=== PATIENT | female | born 1930 | race Caucasian/White ===

== ENCOUNTER 2016-04-30 09:32 | Emergency (ER) | payer MEDICARE ==
[~2016-04-30 09:32] MED LIST: ACET-171 PO; ATRINH INH; BETA1TAB19 PO; CARV12.5 PO; CARV6.25 PO; FUR20 PO; LEVO100T6 PO; LOSA25TA21 PO; MULT1CAP33 PO; PARO10TA2 PO; SPIR25TA3 PO; WARF2.5T82 PO; WARF5TAB PO
[2016-04-30 09:38] VITALS: BP 121/81; PULSE 50; RESP 22; O2SAT 96
--- NOTE | 2016-04-30 09:45 | ED.REPORT ---
HPI-Trauma Minor / Fall Date of Service Apr 30, 2016 ED Provider: Ariana Huitron MD 85 year old female with a hx of Afib on Coumadin presents to the ED with L lower rib pain after tripping and falling yesterday in the kitchen. Pt took Tylenol this morning for the pain. Pt denies any dizziness, SOB, lightheadedness or CP preceding the fall. She denies LOC, neck pain and any other injury. She is slightly SOB secondary to the pain. Nursing Notes Stated Complaint: FELL/LEFT ABDOMINAL SIDE PAIN Chief Complaint: General Complaint Nursing Notes Reviewed: Yes Allergies: Coded Allergies: codeine (Verified Adverse Reaction, Intermediate, Nausea,Vomiting, 04/30/16) Scheduled Carvedilol (Coreg) 6.25 Mg Tablet 6.25 MG PO MORNING Carvedilol (Coreg) 12.5 Mg Tablet 12.5 MG PO QPM Furosemide (Furosemide) 20 Mg Tab 20 MG PO DAILY Ipratropium Ramona (Atrovent HFA) 200 Puff/12.9 Gm Inhaler 2 PUFF INH QID Levothyroxine (Levothyroxine) 100 Mcg Tablet 100 MCG PO DAILY Losartan Potassium (Losartan Potassium) 25 Mg Tablet 12.5 MG PO DAILY Paroxetine (Paroxetine) 10 Mg Tablet 10 MG PO HS Spironolactone (Spironolactone) 25 Mg Tablet 25 MG PO DAILY Vit A/Vit C/Vit E/Zinc/Copper (Preservision Areds Tablet) 1 Each Tablet 1 EACH PO DAILY Warfarin Sodium (Coumadin) 5 Mg Tablet 5 MG PO 3X WEEKLY Scheduled PRN Acetaminophen (Acetaminophen) 500 Mg Tablet 500 MG PO Q6H PRN PRN For Fever Warfarin Sodium (Warfarin Sodium) 2.5 Mg Tablet 2.5 MG PO 4X WEEKLY PRN PRN ANTICOAGULANT oxyCODONE-Acetaminophen 5-325 mg (oxyCODONE-Acetaminophen 5-325 mg) 1 Each Tablet 0.5-1 TAB PO Q6H PRN PRN For Pain Miscellaneous Medications Multivitamin (Multivitamins) 1 Each Capsule 1 EACH PO General Time Seen by MD: 09:44 Chief Complaint Fall Hx Obtained From: Patient Arrived By: Walk-in Onset Occurred: Yesterday Symptom Duration: Since onset Location: Chest (ribs) Quality: Painful Severity: Current: Moderate Associated with: Reports: Shortness of breath, Denies: Loss of consciousness Exacerbated by: Deep breath Past Medical History Past Medical History Severe nonischemic cardiomyopathy. Chronic atrial fibrillation. severe systolic CHF, EF of 25-30% as of July 27 2015 arthritis Reports: Cancer, Congestive heart failure, Hypertension Reports: Atrial fibrillation, Depression, Thyroid disease Past Surgical History right hip surgery Reports: Appendectomy, Cataract surgery, Tonsillectomy Reports: Pacemaker insertion Smoking History Former Smoker Social History Alcohol Use: "Social" Drug Use: Denies drug use Other Social History: Ambulatory Status Independent Review of Systems Constitutional: Denies: Fever Respiratory: Reports: Shortness of breath Skin: Denies Bruising, Denies Rash Complete sys rev & neg: except as marked. Cardiovascular: Reports: Chest pain (rib pain) Physical Exam Initial Vital Signs Vital Signs (First) Date Time Temp Pulse Resp B/P Pulse Ox O2 Delivery O2 Flow Rate FiO2 04/30/16 09:38 36.1 50 22 121/81 96 Room Air Initial VS: Reviewed Head / Eyes: Atraumatic, Normocephalic, PERRL ENT: Conjunctiva normal, No scleral icterus Abdomen / GI: Soft, Non-tender, No guarding, No rebound, No distention Skin: Warm, Dry, No cyanosis Neurologic: Alert, Oriented, Nonfocal Psychiatric: Mood/affect normal, Behavior normal, Normal thought content General/Constitutional: Awake, Alert, Cooperative Distress / Hydration: Positive: Distress moderate Neck: Atraumatic, Supple, Full range of motion Perioral cyanosis Respiratory/Chest: Tender along left lower ribs, just under the breast, without contusion or bruising. Crackles entire L lung field. R lung field normal. Tachypneic. Speaking full sentences. Cardiovascular: Peripheral circulation NL Heart Rate / Rhythm: Positive: Irreg irregular rhythm Heart Sounds / Murmur: Positive: Murmur present... (IV/) No edema Upper Extremity / MS: Neurologic intact, Vascular intact Tips of fingers dusky Interpretation & Diagnostics X-Ray Chest Interpretation Chest Xray Interpretation: Ribs x-ray: probable small fractures on L No hemopneumothorax Interpretation / Wet Read by: Wet read ED physician Chest Xray Interpretation: Ribs x-ray: IMPRESSION: Nondisplaced left lateral seventh rib fracture. Dictated by: Brittany Vidales M.D. on 04/30/2016 at 11:03 Interpretation / Wet Read by: Interpret - Radiologist Re-Eval/Medical Decision Re-Evaluation/Progress : Time of Eval: 10:57 Re-Evaluation/Progress Note: Pain improved. Breathing rate is normal. Discussed plan for discharge and follow up. All questions addressed. Counseled Regarding: Diagnosis, Need for follow-up, When/why to return to ED Discharge & Departure Impression: Primary Impression: Rib fracture Encounter type: initial encounter Rib fracture type: multiple ribs Fracture type: closed Laterality: left Qualified Code: S22.42XA - Multiple fractures of ribs, left side, initial encounter for closed fracture Ruled Out: Hemopneumothorax Disposition: Home Discharge Condition All VS Reviewed: Yes Condition: Improved Patient Instructions: Rib Fracture (ED) Additional Instructions: You have cracked 3 ribs with your fall. They are not completely broken and are not causing lung or bleeding problems. They are still going to hurt, alot:( You can use 1-2 Tylenol OR 1/2 to 1 Percocet for severe pain. Expect to have significant pain for 2-3 days, moderate pain for 1-2 weeks and you will still feel that you hurt yourself for up to 6 weeks (that is standard with any type of rib healing). You can also apply ice to the area to help with pain and swelling. Make sure that you are taking deep breaths throughout the day to make sure that you are preventing pneumonia. Please be careful to prevent falls. You got kyle today! If you are getting worse you can follow up with your primary care doctor. For high fever, or cough, return to the ER. Referrals: Julien Dunn MD (PCP) Scribe Attestation Portions of this note were transcribed by Mariela Mandujano. I, (Dr. Huitron) personally performed the history, physical exam and medical decision-making; I reviewed and confirmed the accuracy of the information in the transcribed note. Signed by: Mariela Mandujano. 04/30/2016, 1100 copies to: Julien Dunn MD, Shawna L MD Apr 30, 2016 09:45 Mariela Mandujano Apr 30, 2016 09:59
[2016-04-30] MEDS ORDERED: oxyCODONE-Acetamin 5-325 mg Tablet PO ONE (09:55)
[2016-04-30 10:07] VITALS: PULSE 70; RESP 32; O2SAT 95
--- NOTE | 2016-04-30 11:04 | DRSVH ---
PROCEDURE: X-RAY LEFT RIBS INCLUDEING PA CHEST, MINUMUM THREE VIEWS ([id number]) INDICATIONS: fall TECHNIQUE: 3 views of the left ribs were acquired, along with a single view chest. COMPARISON: [facility], CR, XR CHEST 1VW (PORTABLE), 01/04/2016, 8:51. FINDINGS: Surgical changes and devices: Pacemaker. Bones and chest wall: There is a nondisplaced lateral left seventh rib fracture. Lungs and pleura: Lungs demonstrate chronic interstitial changes. No pneumothorax. Mediastinum: Mediastinal contours appear normal. Heart size is normal. IMPRESSION: Nondisplaced left lateral seventh rib fracture. Dictated by: Brittany Vidales M.D. on 04/30/2016 at 11:03 Approved by: Brittany Vidales M.D. on 04/30/2016 at 11:03
[2016-04-30] MEDS ORDERED: OXYC1TAB24 PO (11:07)
[2016-04-30 11:41] VITALS: BP 100/55; PULSE 65; RESP 28; O2SAT 93
== END 2016-04-30 11:43 | disposition home or self-care (01) ==
LOC: SED 09:32
DX: S22.42XA Multiple fractures of ribs, left side, initial encounter for closed fracture (principal); W01.0XXA Fall on same level from slipping, tripping and stumbling without subsequent striking against object, initial encounter; Y93.01 Activity, walking, marching and hiking; Y92.010 Kitchen of single-family (private) house as the place of occurrence of the external cause; Y99.8 Other external cause status; Z79.01 Long term (current) use of anticoagulants; I50.9 Heart failure, unspecified; I10 Essential (primary) hypertension; E07.9 Disorder of thyroid, unspecified; Z87.891 Personal history of nicotine dependence

== ENCOUNTER 2016-05-01 22:19 | Inpatient (IN) | payer MEDICARE ==
[~2016-05-01] VITALS: Ht 167.6 cm; Wt 60.5 kg
[~2016-05-01 22:19] MED LIST changes: +OXYC1TAB24 PO
[2016-05-01 22:27] VITALS: BP 97/54; PULSE 70; RESP 32; O2SAT 96
--- NOTE | 2016-05-01 22:32 | ED.REPORT ---
HPI-Dyspnea / Wheezing Date of Service May 01, 2016 ED Provider: Dr. Hagen 85-year-old female with history of interstitial lung disease, ischemic cardiomyopathy and COPD presents in moderate respiratory distress. She states that she has felt short of breath for the past 24-36 hours. Evidently she fell and broke her ribs I believe yesterday. Since then she is having increasing work of breathing. Nursing Notes Stated Complaint: SHORT OF BREATH Chief Complaint: Respiratory Complaints Nursing Notes Reviewed: Yes Allergies: Coded Allergies: codeine (Verified Adverse Reaction, Intermediate, Nausea,Vomiting, 05/01/16) Scheduled Carvedilol (Coreg) 6.25 Mg Tablet 6.25 MG PO MORNING Carvedilol (Coreg) 12.5 Mg Tablet 12.5 MG PO QPM Furosemide (Furosemide) 20 Mg Tab 20 MG PO DAILY Ipratropium Jordan (Atrovent HFA) 200 Puff/12.9 Gm Inhaler 2 PUFF INH QID Levothyroxine (Levothyroxine) 100 Mcg Tablet 100 MCG PO DAILY Losartan Potassium (Losartan Potassium) 25 Mg Tablet 12.5 MG PO DAILY Paroxetine (Paroxetine) 10 Mg Tablet 10 MG PO HS Spironolactone (Spironolactone) 25 Mg Tablet 25 MG PO DAILY Vit A/Vit C/Vit E/Zinc/Copper (Preservision Areds Tablet) 1 Each Tablet 1 EACH PO DAILY Warfarin Sodium (Coumadin) 5 Mg Tablet 5 MG PO 3X WEEKLY Scheduled PRN Acetaminophen (Acetaminophen) 500 Mg Tablet 500 MG PO Q6H PRN PRN For Fever Warfarin Sodium (Warfarin Sodium) 2.5 Mg Tablet 2.5 MG PO 4X WEEKLY PRN PRN ANTICOAGULANT oxyCODONE-Acetaminophen 5-325 mg (oxyCODONE-Acetaminophen 5-325 mg) 1 Each Tablet 0.5-1 TAB PO Q6H PRN PRN For Pain Miscellaneous Medications Multivitamin (Multivitamins) 1 Each Capsule 1 EACH PO General Time Seen by MD: 22:31 Chief Complaint Shortness of breath Hx Obtained From: Patient, EMS Arrived By: Ambulance Sudden in Onset?: No Onset Occurred: Onset unknown Symptom Duration: Since onset Severity: Current: No pain currently Severity: Maximum: No pain Recent Healthcare: No recent hospitalization, Recent doctor visit Similar Sx Previous: No Past Medical History Past Medical History Severe nonischemic cardiomyopathy. Chronic atrial fibrillation. severe systolic CHF, EF of 25-30% as of July 27 2015 arthritis Reports: Cancer, Congestive heart failure, Hypertension Reports: Atrial fibrillation, Depression, Thyroid disease Past Surgical History rib fractures 04/30/2016 right hip surgery Reports: Appendectomy, Cataract surgery, Tonsillectomy Reports: Pacemaker insertion Smoking History Former Smoker Social History Alcohol Use: "Social" Drug Use: Denies drug use Other Social History: Ambulatory Status Independent Review of Systems Constitutional: Denies: Fever Respiratory: Reports: Shortness of breath Cardiovascular: Denies: Chest pain Musculoskeletal: Denies: Back pain Complete sys rev & neg: except as marked. GI: Denies: Abdominal pain Physical Exam Initial Vital Signs Vital Signs (First) Date Time Temp Pulse Resp B/P Pulse Ox O2 Delivery O2 Flow Rate FiO2 05/01/16 22:27 36.4 70 32 97/54 96 Nasal Cannula 4 05/01/16 23:23 98 Initial VS: Reviewed Head / Eyes: Atraumatic, Normocephalic, PERRL ENT: Mucous membranes moist, Conjunctiva normal, No scleral icterus Abdomen / GI: Soft, Non-tender, No guarding, No rebound, No distention Skin: Warm, Dry, No cyanosis Neurologic: Alert, Oriented, Nonfocal Psychiatric: Mood/affect normal, Behavior normal, Normal thought content General/Constitutional: Awake, Alert Distress / Hydration: Positive: Distress moderate Neck: Atraumatic Neck Vascular: Positive: JVD mild Respiratory / Chest: No chest tenderness Moderate pursed lip breathing Cardiovascular: Heart rate NL, Regular rhythm, Heart sounds NL, Peripheral circulation NL Lower Extremity / Pelvis / MS: No edema Upper Extremity / MS: No edema Interpretation & Diagnostics Lab Results Interpretation Result Diagram: 05/01/16222905/01/162229 Test 05/01/16 22:30 05/01/16 23:05 05/02/16 00:27 White Blood Count 8.5th/mm3 (3.8-10.1) Red Blood Count 4.28mil/mm3 (3.90-5.20) Hemoglobin 14.1g/dL (12.0-15.6) Hematocrit 42.7% (35.0-46.0) Mean Corpuscular Volume 99.8fL (81-100) Mean Corpuscular Hemoglobin 32.9pg (27.0-35.0) Mean Corpuscular Hemoglobin Concent 33.0% (32.0-37.0) Red Cell Distribution Width 15.9% (12.3-15.4) Platelet Count 125bil/L (150-400) Neutrophils (%) (Auto) 69.8% (40-74) Lymphocytes (%) (Auto) 20.4% (14-46) Monocytes (%) (Auto) 8.0% (4-12) Eosinophils (%) (Auto) 0.8% (0-5) Basophils (%) (Auto) 0.5% (0-3) Hold Purple Top Tube Received (Received) Prothrombin Time 20.5sec (8.1-12.5) Prothromb Time International Ratio 1.89ratio Hold Blue Top Tube Received (Received) Sodium Level 135mEq/L (134-144) Potassium Level 4.8mEq/L (3.5-5.2) Chloride Level 99mEq/L (97-108) Carbon Dioxide Level 21mmol/L (18-29) Blood Urea Nitrogen 32mg/dL (8-27) Creatinine 0.97mg/dL (0.57-1.00) Estimat Glomerular Filtration Rate 78mL/min (>59) Glucose Level 151mg/dL (60-99) Calcium Level 8.9mg/dL (8.5-10.1) Total Bilirubin 1.2mg/dL (0.0-1.2) Aspartate Amino Transf (AST/SGOT) 30U/L (0-50) Alanine Aminotransferase (ALT/SGPT) 15U/L (0-32) Alkaline Phosphatase 86U/L (25-165) Troponin T 0.010ug/L (0.0-0.011) Pro-B-Type Natriuretic Peptide 44186az/mL (0-738) Total Protein 7.2g/dL (6.4-8.4) Albumin 3.7g/dL (3.4-5.0) Hold Red Top Tube Received (Received) Hold Leonard Top Tube Received (Received) Urine Color Yellow (YELLOW) Urine Appearance Clear (CLEAR,HAZY) Urine pH 5.5 (5.0-8.0) Urine Specific [place] 1.010 (1.003-1.035) Urine Protein Negativemg/dL (NEG,TRACE) Urine Glucose (UA) Negativemg/dL (NEGATIVE) Urine Ketones Negativemg/dL (NEGATIVE) Urine Occult Blood Negative (NEGATIVE) Urine Nitrite Negative (NEGATIVE) Urine Bilirubin Negative (NEGATIVE) Urine Urobilinogen Normalmg/dL (NORMAL) Urine Leukocyte Esterase Small (NEGATIVE) Urine RBC 0-2/hpf (0-2) Urine WBC 6-10/hpf (0-5) Urine Epithelial Cells Moderate/hpf (NONE-MOD) Urine Crystals None seen (NONE SEEN) Urine Bacteria Moderate/hpf (NONE-FEW) Urine Hyaline Casts None/lpf (NONE) Urine Granular Casts None seen (NONE SEEN) Urine Waxy Casts None seen (NONE SEEN) Urine Red Blood Cell Casts None seen (NONE SEEN) Urine White Blood Cell Casts None seen (NONE SEEN) Urine Mucus Present (None Seen) Urine Trichomonas None seen (NONE SEEN) Urine Yeast None (NONE SEEN) Urinalysis Comment None Urine Culture Reflexed Indicated ECG Interpretation ECG Interpretation: Afib/flutter and ventricular-paced rhythm. Rate 70. Time: 23:05 Interpreted by: ED physician X-Ray Chest Interpretation Chest Xray Interpretation: Chronic interstitial fibrosis without infiltrate. Interpretation / Wet Read by: Wet read ED physician Re-Eval/Medical Decision Med Decision/Clinical Course Patient presented moderate distress. She is treated with DuoNeb's, IV steroids and Lasix. The above treatment seemed to help significantly. Her work of breathing improved significantly. Her respiratory rate went down from 27 to roughly 16. She is moving much more air. Chest x-ray shows chronic interstitial appearing pattern with maybe a little more vascular prominence than from yesterday. No pneumothorax or focal infiltrates. Taking into account her age and comorbidities we will admit her to the hospital for frequent breathing treatments IV antibiotics and diuresis. Laboratory work shows a markedly elevated BNP. First troponin is negative. Re-Evaluation/Progress : Time of Eval: 12:45 Patient Status: Condition improved Re-Evaluation/Progress Note: Pt's respiratory rate has decreased. Consultation : Referral / Consult Name: Ioana Teixeira MD Consulted With: Hospitalist Call Returned at: 00:28 Electrical Contacts Adjuster: Will see patient, Agrees with plan, Accepts admit Counseled Regarding: Diagnosis, Lab results, Need for follow-up, When/why to return to ED Discharge & Departure Shift Change Sign-Out Response to Therapy: Improved Impression: Primary Impression: COPD exacerbation Additional Impressions: Respiratory distress CHF exacerbation Disposition: ADMITTED TO HOSPITAL Discharge Condition All VS Reviewed: Yes Condition: Improved Referrals: Julien Dunn MD (PCP) Scribart Attestation Portions of this note were transcribed by Cleopatra Javier. I, Dr. Hagen personally performed the history, physical exam and medical decision-making; I reviewed and confirmed the accuracy of the information in the transcribed note. Signed by : Gilles Quiroz, 05/01/2016 and 0035. copies to: Julien Dunn MD, Todd P DO May 01, 2016 22:32 CLEOPATRA JAVIER May 01, 2016 23:10
[2016-05-01] MEDS ORDERED: Albuterol 2.5 mg/3 mL Inhalation Solution NEB ONE (22:35)
[2016-05-01] MEDS ORDERED: Albuterol-Ipratropium 3 mL Inhalation Solution NEB ONE ×2 (22:35→23:50)
[2016-05-01 22:47] LABS: BASOPHILS % (AUTO) 0.5 % (0-3); EOSINOPHILS % (AUTO) 0.8 % (0-5); Mean Corpuscular Hemoglobin 32.9 pg (27.0-35.0); Mean Corpuscular Volume 99.8 fL (81-100); NEUTROPHILS % (AUTO) 69.8 % (40-74); Platelet Count 125 bil/L (150-400)
[2016-05-01 22:54] LABS: INR 1.89 ratio
[2016-05-01 23:15] LABS: TROPONIN T 0.01 ug/L (0.0-0.011)
[2016-05-01 23:23] VITALS: PULSE 70; RESP 28; O2SAT 98
[2016-05-01] MEDS ORDERED: Furosemide 10 mg/mL 4 mL Inj IVPUSH ONE (23:30)
[2016-05-01] MEDS ORDERED: MethylprednisoLONE Sodium Succinate 62.5 mg/mL 2 mL Inj IVPUSH ONE (23:30)
[2016-05-01 23:35] VITALS: BP 114/57; PULSE 70
[2016-05-01] MEDS ORDERED: Piperacillin-Tazo 3.375 Gm Inj 3.375 GM in Dextrose 5% Minibag Plus 50 ML IV ONE (23:35)
[2016-05-01 23:50] VITALS: BP 122/43; PULSE 70
[2016-05-02] VITALS (10 sets, daily range): BP systolic 111–128; BP diastolic 64–78; PULSE 67–72; RESP 18–24; O2SAT 92–97
[2016-05-02 01:09] LABS: APPEARANCE,URINE CLEAR (CLEAR,HAZY); COLOR,URINE YELLOW (YELLOW); OCCULT BLOOD,URINE NEGATIVE (NEGATIVE); PH,URINE 5.5 (5.0-8.0); UROBILINOGEN,URINE NORMAL (NORMAL)
[2016-05-02] MEDS ORDERED: Senna-Docusate 8.6-50 mg Tablet PO PRN (01:20)
[2016-05-02] MEDS ORDERED: Alum-Mag Hydrox-Simeth 30 mL Suspension PO PRN (01:20)
[2016-05-02] MEDS ORDERED: Ondansetron 2 mg/mL 2 mL Inj IVPUSH PRN (01:20)
[2016-05-02] MEDS ORDERED: Polyethylene Glycol (PEG) 17 Gm Powder PO PRN (01:20)
--- NOTE | 2016-05-02 01:39 | PCM.HPMED ---
Subjective Date of Service May 02, 2016 Primary Provider: Admitting Physician: Ioana Teixeira MD Primary Care Physician: Julien Dunn MD Attending Physician: Ioana Teixeira MD Admit Status: From the Emergency Department Chief Complaint: shortness of breath History of Present Illness: Mrs. Odell is an 85-year-old female with history of interstitial lung disease, ischemic cardiomyopathy and COPD who presented in moderate respiratory distress. She states that she has felt short of breath for the past 24-36 hours. She stated that she fell and broke her ribs one to two days ago. It was a "trip and fall" over an open cupboard door in her kitchen. Denies feeling dizzy or weak prior to the fall. Since then she has been having increasing work of breathing. She uses oxygen at night but does not know how much. Her was present in the ED to answer questions, but by the time she was admitted, her had left. Patient is a poor historian and unable to answer many of my questions. In the ED, vitals were 36.4; 70; 32; 97/54 and she used 4L by NC for saturation of 96%. Labs showed no leukocytosis, lactic acid of 2.1, ProBNP of 12,408; INR subtherapeutic at 1.89; UA had moderate epithelial cells. She was given DuoNEB inhaler x2, Zosyn x1, Solu-Medrol 125 mg by IV, furosemide 40mg by IV, albuterol neb x1. Respiratory rate and blood pressure normalized. . Review of Systems: As per HPI, otherwise negative. Allergies Coded Allergies: codeine (Verified Adverse Reaction, Intermediate, Nausea,Vomiting, 05/01/16) Home Medications from ED records, but not confirmed. DAY TEAM TO VERIFY MEDICATIONS. I have 2 different doses for carvedilol, paroxetine and levothyroxine. carvedilol 6.25 po am carvedilol 12.5 po QPM furosemide 20mg daily Spironolactone 25mg daily losartan 12.5mg daily Atrovent HFA levothyroxine 100mcg daily multivitamin oxycodone-apap 5-325, 1/2 to 1 PO Q6H PRN paroxetine 10mg PO HS Vitamin A/C/E/zinc/copper (Preservision Areds tab) 1 tab daily warfarin 5mg 3x weekly; 2.5 mg PO 4x weekly PMH Severe nonischemic cardiomyopathy. Chronic atrial fibrillation. severe systolic CHF, EF of 25-30% as of July 27 2015 arthritis Reports: Cancer, Congestive heart failure, Hypertension Reports: Atrial fibrillation, Depression, Thyroid disease Surgical History rib fractures 04/30/2016 right hip surgery Reports: Appendectomy, Cataract surgery, Tonsillectomy Reports: Pacemaker insertion Family History Father at age 51 but patient was not able to tell me why Mother at age 87 but patient was not able to tell me how Social History Hx Alcohol Use: Yes (OCCASIONAL) Hx Substance Use: No Hx Tobacco Use: Yes (quit 30 years ago) Smoking Status: Former Smoker Living Arrangement: with Family (with ) Exam Vital Signs Vital Sign - Last Date Time Temp Pulse Resp B/P Pulse Ox O2 Delivery O2 Flow Rate FiO2 05/02/16 00:10 70 19 97 OxyMask 4 05/01/16 23:50 122/43 05/01/16 23:23 98 05/01/16 22:27 36.4 Intake and Output 05/01/16 05/01/16 05/02/16 Cumulative From/Thru 15:00 23:00 07:00 05/01/16 22:27 - 05/02/16 00:58 Output Total 300 ml 300 ml Balance -300 ml -300 ml Output Urine Total 300 ml 300 ml Exam General/Constitutional: Awake, Alert, cachectic and frail Neck: Atraumatic Respiratory / Chest: No chest tenderness, mild to moderate coarse breath sounds B/L lung bases Cardiovascular: Heart rate NL, Regular rhythm, Heart sounds NL but distant Head / Eyes: Atraumatic, Normocephalic, PERRL ENT: Dry mucus membranes (s/p furosemide in the ED) Abdomen / GI: Soft, Non-tender, No guarding, No rebound, No distention Extremities: no edema in LE Skin: Warm, Dry, No cyanosis Psychiatric: Mood/affect normal . Lab and Diagnostics Labs no leukocytosis, lactic acid of 2.1, ProBNP of 12,408; INR subtherapeutic at 1.89; UA had moderate epithelial cells Result Diagram: 05/01/16222905/01/162229 Microbiology UA pending X-Rays, CTs and MRIs 05/02/16 Chest Xray Interpretation: Chronic interstitial fibrosis without infiltrate. Interpretation / Wet Read by: Wet read ED physician 05/01/16 chest x-ray showed: IMPRESSION: Nondisplaced left lateral seventh rib fracture. Dictated by: Brittany Vidales M.D. on 04/30/2016 at 11:03 12-lead ECG ECG Interpretation: Afib/flutter and ventricular-paced rhythm. Rate 70. Time: 23:05 Interpreted by: ED physician Assessment & Plan Mrs. Odell is an 85-year-old female with history of interstitial lung disease, ischemic cardiomyopathy and COPD who presented by EMS to [facility] ED in moderate respiratory distress. NOTE: Day team to verify medications. I have found different doses for several of her medications. PLEASE DO MEDICINE RECONCILIATION. Several of her medications have not been continued until verified. 1. CHF exacerbation, present on admission, chronic - Likely secondary to her fall with left 7th non-displaced fracture causing shallow respiration because of the pain - BNP: 12,408 - CXR: interstitial fibrosis without congestion - Was given IV lasix 40 mg in the ED. Patient now looks dry and I did not appreciate any crackles in her lung bases nor does she have LE edema. Continue home PO dose of lasix daily. Day team to verify dose and continue. - ECHO (02/21/2016):Echocardiogram report from 02/21/16 (two months ago): LVEF 25 +/- 5%. Global hypokinesis of LV. Paced rhythm. Severe tricuspid regurgitation. No significant change from echo of 01/14/16. - Continue home dose of spironolactone, losartan, carvedilol. Day team to verify dose and continue. - No IV fluids ordered - troponin negative x1 - Telemetry 2. COPD exacerbation, present on admission, Chronic - Likely secondary to her fall with left 7th non-displaced fracture causing shallow respiration because of the pain - Patient on unknown amount of oxygen at home during the night. Now using 5L by oxymask. - DuoNebs, albuterol nebs as necessary - Zosyn given in the ED. Will continue 3.375g Q12 hrs -125mg solu-medrol given in the ED. 40mg PO daily ordered - Oxygen for saturation 88%-92% 3. Elevated lactic acid, present on admission, acute - 2.1 x 2. Will continue to trend - No IV fluids because of CHF exacerbation 4. Non-displaced fracture of left lateral seventh rib, present on admission, acute - Pain medication ordered 5. Atrial fibrillation, present on admission, chronic - on Coumadin at home which was subtherapeutic. Continue Coumadin per pharmacy - Also on carvedilol but have conflicting doses. Day team to verify dose and continue. 6. Hypothyroidism, present on admission, chronic - Will continue Synthroid but day team to verify dose (since I have 2 doses listed) and continue 7. Depression, present on admission, chronic - She is on Paroxetine. Day team to verify dose (I have both 10mg and 20mg) and continue Bowel regime as per protocol Antiemetics and analgesics prn Code status: Full Status: Pt will be admitted as inpatient due to complexity of medical conditions that will require more than 2 days of inpatient stay. Resuscitation Status: CPR: Attempt Resuscitation, intubation. NO cardioversion/ defibrillation. Confirmed with patient. GI Prophylaxis: Proton Pump Inhibitor VTE Prophylaxis: Theraputic Anticoag with Warfarin Resuscitation Status: Limited Interventions (compressions and intubation OKAY. Does not want electric shock) Limited Interventions: Compressions, Intubation w Mech Vent, BiPAP, Medications and IV Fluid (No cardioversion/defibrillation) Attending Statement Pt seen and examined by myself and agree with above plan. copies to: Julien Dunn MD, Janice M DO May 02, 2016 01:39 Ioana Teixeira MD May 02, 2016 18:48
--- NOTE | 2016-05-02 01:45 | NUR ---
ADMIT Pt brought onto floor via gurney at 0145. Report received from Alanna Sena RN from ED. Pt oriented to unit, room, and call light. Pt belongings stored in closet or bedside and waiver signed. Admission assessments and physical assessments complete, VSS. Med rec not finished, pt por historian, instructed to ask to bring med list from home with advanced directive. Will report to day shift to follow up.
[2016-05-02] MEDS ORDERED: Albuterol 2.5 mg/3 mL Inhalation Solution NEB PRN (02:45)
[2016-05-02 06:40] LABS: INR 1.78 ratio
--- NOTE | 2016-05-02 07:49 | DRSVH ---
PROCEDURE: X-RAY CHEST ONE VIEW, PORTABLE ([id number]) INDICATIONS: short of breath TECHNIQUE: One view of the chest was acquired. COMPARISON: [facility], CR, XR [facility] PA CXR MIN 3VW LT, 04/30/2016, 10:13. [facility], CT, CT CHEST WO CON, 01/05/2016, 9:15. [facility], CR, XR CHEST 1VW (PORTAB LE), 01/04/2016, 8:51. FINDINGS: Surgical changes and devices: Cardiac pacer Lungs and pleura: No pleural effusions or pneumothorax. Lungs are clear. Chronic diffuse/interstit ial disease with unchanged appearance. Previously described left lung opacities are less conspicuous on the current examination Mediastinum: Mediastinal contours appear normal. Heart size is normal. Bones and chest wall: Minimally displaced left sixth rib fracture. IMPRESSION: Minimally displaced left sixth rib fracture No acute cardiopulmonary disease Diffuse chronic/interstitial changes. Dictated by: Raul Gardiner M.D. on 05/02/2016 at 7:47 Approved by: Raul Gardiner M.D. on 05/02/2016 at 7:47
[2016-05-02] MEDS ORDERED: predniSONE 20 mg Tablet PO SCH (08:30)
[2016-05-02] MEDS: oxyCODONE-Acetamin 5-325 mg Tablet PO PRN ×2 (09:28→20:35)
[2016-05-02] MEDS: Sodium Chloride LOK Flush 10 mL Syringe IVFLUSH SCH ×2 (09:33→15:52)
[2016-05-02] MEDS ORDERED: LEVO112T4 PO (10:03)
[2016-05-02] MEDS ORDERED: WARF5TAB7 PO ×2 (10:03)
[2016-05-02] MEDS ORDERED: PARO20TA5 PO (10:03)
[2016-05-02] MEDS ORDERED: CARV12.52 PO (10:03)
[2016-05-02] MEDS ORDERED: CYCL1DRO BOTH_EYES (10:03)
[2016-05-02] MEDS ORDERED: FURO-128 PO (10:03)
[2016-05-02] MEDS ORDERED: Piperacillin-Tazo 3.375 Gm Inj 3.375 GM in Dextrose 5% Minibag Plus 50 ML IV SCH (11:00)
[2016-05-02] MEDS: MethylprednisoLONE Sodium Succinate 40 mg/mL Inj IVPUSH SCH ×2 (15:52→20:15)
--- NOTE | 2016-05-02 17:09 | NUR ---
Respiratory Tachypenea reducing this shift. IV solu-medrol admin. Reports "feeling better"
--- NOTE | 2016-05-02 20:26 | PCM.PNMED ---
Subjective Date of Service May 02, 2016 Subjective Pt reports that she has been feeling short of breath, but notes it is slightly improved since being in the hospital. Pt reports that she fractured a rib, and that it hurts to take deep breaths. Pt denies any fevers, chills or myalgias. Pt reports that she uses supplemental oxygen at home, but only usually needs 2L. She states she is using more in the hospital. Exam Vital Signs Vital Sign - Last Date Time Temp Pulse Resp B/P Pulse Ox O2 Delivery O2 Flow Rate FiO2 05/02/16 17:15 36.1 70 20 115/73 94 OxyMask 5.00 05/01/16 23:23 98 Intake and Output 05/01/16 05/01/16 05/02/16 Cumulative From/Thru 15:00 23:00 07:00 05/01/16 22:27 - 05/02/16 06:34 Intake Total 150 ml 150 ml Output Total 1200 ml 1200 ml Balance -1050 ml -1050 ml Intake Oral 150 ml 150 ml Output Urine Total 1200 ml 1200 ml Exam General: No acute distress, frail,thin, appropriately interactive HEENT:Oxymask in place. Normocephalic, atraumatic. External ears without defect. Pupils equal, round, and reactive to light and accommodation. Anicteric sclerae, moist conjunctivae, Oropharynx with moist mucosa. Neck: Supple with full range of motion. No jugular venous distension. No bruits. No lymphadenopathy or thyromegaly. Cardiovascular: Regular rate and rhythm with no murmurs, rubs, or gallops appreciated Pulmonary: Mild chest tenderness along left side rib 7 or 8.Mild crackles and expiratory wheezes at bases bilaterally( these resolved by time team rounded with attending) Normal respiratory effort with no use of accessory muscles. Abdomen: Bowel tones present. Soft, nontender, nondistended. Extremities: No clubbing, cyanosis, edema, or lymphadenopathy appreciated. Skin: Normal temperature, turgor, and texture; Psychiatric: Normal mood and affect. Alert and oriented to person, place, and time. IVs and Medications Medications Reviewed: Medications were reviewed in detail Lab and Diagnostics Result Diagram: 05/01/16222905/01/162229 Microbiology UA pending X-Rays, CTs and MRIs 05/02/16 Chest Xray Interpretation: Chronic interstitial fibrosis without infiltrate. Interpretation / Wet Read by: Wet read ED physician 05/01/16 chest x-ray showed: IMPRESSION: Nondisplaced left lateral seventh rib fracture. Dictated by: Brittany Vidales M.D. on 04/30/2016 at 11:03 12-lead ECG ECG Interpretation: Afib/flutter and ventricular-paced rhythm. Rate 70. Time: 23:05 Interpreted by: ED physician Assessment & Plan Mrs. Odell is an 85-year-old female with history of interstitial lung disease, ischemic cardiomyopathy and COPD who presented by EMS to [facility] ED in moderate respiratory distress. Acute on chronic respiratory failure, present on admission, ongoing -Pt on home O2 normally -Requiring additional here in the hospital -Likely secondary to COPD, but also possibly related to CHF exacerbation. - Likely worsened by her fall with left 7th non-displaced rib fracture causing shallow respiration because of the pain COPD exacerbation, present on admission, ongoing -PCR ordered - DuoNebs, albuterol nebs as necessary - Zosyn discontinued -125mg solu-medrol given in the ED. -80mg IV solumedrol - Oxygen for saturation 88%-92% Acute systolic CHF, exacerbation , present on admission,ongoing -Less likely given pt does not have any edema in her lower extremities, and no crackles or wheezes were auscultated at time of rounding. - BNP: 12,408 - CXR: interstitial fibrosis without congestion - IV lasix 40 mg in the ED. - ECHO (02/21/2016):Echocardiogram report from 02/21/16 (two months ago): LVEF 25 +/- 5%. Global hypokinesis of LV. Paced rhythm. Severe tricuspid regurgitation. No significant change from echo of 01/14/16. - Home medications to be continued Elevated lactic acid, present on admission, resolved - 2.1 at admission, normal now. Non-displaced fracture of left lateral seventh rib, present on admission, acute - Pain medication as needed Atrial fibrillation, present on admission, chronic - on Coumadin at home which was subtherapeutic. Continue Coumadin per pharmacy - Continue carvedilol Hypothyroidism, present on admission, chronic - Will continue Synthroid Depression, present on admission, chronic - Continue Paroxetine Bowel regime as per protocol Antiemetics and analgesics prn Code status: Full Status: Pt will be admitted as inpatient due to complexity of medical conditions that will require more than 2 days of inpatient stay. Resuscitation Status: CPR: Attempt Resuscitation, intubation. NO cardioversion/ defibrillation. GI Prophylaxis: Proton Pump Inhibitor VTE Prophylaxis: Theraputic Anticoag with Warfarin Resuscitation Status: Limited Interventions (compressions and intubation OKAY. Does not want electric shock) Limited Interventions: Compressions, Intubation w Mech Vent, BiPAP, Medications and IV Fluid (No cardioversion/defibrillation) Attending Statement The patient was seen and examined together with Dr. Solorzano on 05/02/2016 and I agree with the history, exam and plan as outlined in the note above. Soraya Solorzano DO May 02, 2016 20:26 Dejon Parks MD May 03, 2016 11:17
[2016-05-02] MEDS: Albuterol-Ipratropium 3 mL Inhalation Solution NEB PRN (20:49)
[2016-05-02] MEDS ORDERED: PARoxetine 20 mg Tablet PO SCH (21:00)
[2016-05-03] VITALS (11 sets, daily range): BP systolic 108–122; BP diastolic 64–82; PULSE 67–73; RESP 20–28; O2SAT 86–96
[2016-05-03] MEDS: MethylprednisoLONE Sodium Succinate 40 mg/mL Inj IVPUSH SCH (04:04)
[2016-05-03] MEDS: Sodium Chloride LOK Flush 10 mL Syringe IVFLUSH SCH ×5 (04:04→20:25)
--- NOTE | 2016-05-03 04:37 | NUR ---
AMBULATION 1 Person assist to BSC. Pt steady on feet but cautious. SOB with ambulation, pt breathing heavy. PRN breathing Treatment called to RT. SOB subsided with treatment. Continuing to monitor.
[2016-05-03 07:21] LABS: BASOPHILS % (AUTO) 0.1 % (0-3); EOSINOPHILS % (AUTO) 0 % (0-5); MONOCYTES % (AUTO) 2.1 % (4-12); Mean Corpuscular Hemoglobin 33.2 pg (27.0-35.0); Mean Corpuscular Volume 96.6 fL (81-100); NEUTROPHILS % (AUTO) 89.7 % (40-74); Platelet Count 126 bil/L (150-400)
[2016-05-03 07:38] LABS: INR 1.73 ratio
[2016-05-03] MEDS: oxyCODONE-Acetamin 5-325 mg Tablet PO PRN (08:47)
--- NOTE | 2016-05-03 09:15 | NUR ---
Social Work: Initial Assessment Data: Pt is an 85 y/o female admitted for respiratory distress, acute exac COPD. Pt's PCP is Dr Dunn, pt's insurance is Medicare with [employer] supp. EMR reviewed. BUSINESS TRANSFORMATION CONSULTANT met with pt and spouse at bedside, role explained. Pt states that she and her live in a single story home where she uses no DME but owns a walker and cane if needed. She reports that she drives, has no history of HH or SNF, no LTC or VA benefits, and is not a caregiver for another. Pt states her is a good support to contact if needed and that he is her DPOA, BUSINESS TRANSFORMATION CONSULTANT requested a copy for hospital. HH/SNF choice list given. BUSINESS TRANSFORMATION CONSULTANT left contact info on board. BUSINESS TRANSFORMATION CONSULTANT will continue to follow for d/c needs. Assessment: Pt who is independent at baseline. Plan: Pt will likely d/c either home with HH or to SNF. BUSINESS TRANSFORMATION CONSULTANT will continue to follow for d/c planning needs. EAMON Huitron Addendum: 05/03/16 at 0918 by LATESHA LANG Amended: Links added.
[2016-05-03] MEDS: predniSONE 20 mg Tablet PO SCH (12:08)
--- NOTE | 2016-05-03 15:08 | NUR ---
Evaluation completed. Please go to "Notes" then click on "Assessments and Notes" (bottom left corner of screen). Then select appropriate discipline tab on top of screen.
--- NOTE | 2016-05-03 16:41 | PCM.PNMED ---
Subjective Date of Service May 03, 2016 Subjective Overnight: No acute events; some SOB reported with activity Today: States she feels well. Does not feel SOB with O2 off at rest. Denied CP, SOB, n/v; tolerating po well. Expressed interest in working with PT. States she has O2 at home, but does not consistently utilize, and did so mostly at night. Exam Vital Signs Vital Sign - Last Date Time Temp Pulse Resp B/P Pulse Ox O2 Delivery O2 Flow Rate FiO2 05/03/16 12:10 91 Room Air at rest 05/03/16 11:29 73 28 121/73 05/03/16 05:20 36.6 5.00 05/01/16 23:23 98 Intake and Output 05/02/16 05/02/16 05/03/16 Cumulative From/Thru 15:00 23:00 07:00 05/01/16 22:27 - 05/03/16 06:53 Intake Total 50 ml 525 ml 220 ml 945 ml Output Total 1150 ml 700 ml 3050 ml Balance 50 ml -625 ml -480 ml -2105 ml Intake Oral 525 ml 220 ml 895 ml IV Total 50 ml 50 ml Output Urine Total 1150 ml 700 ml 3050 ml Exam General: No acute distress, frail,thin, appropriately interactive HEENT:Oxymask in place. Normocephalic, atraumatic. External ears without defect. Pupils equal, round, and reactive to light Anicteric sclerae, moist conjunctivae, Oropharynx with moist mucosa. Neck: Supple with full range of motion. No jugular venous distension. Cardiovascular: Regular rate and rhythm with no murmurs, rubs, or gallops appreciated Pulmonary: Mild chest tenderness along inferior left sided ribs. Normal respiratory effort with no use of accessory muscles. Some faint wheeze BL upper varma Abdomen: Bowel tones present. Soft, nontender, nondistended. Extremities: No clubbing, cyanosis, edema, or lymphadenopathy appreciated. Skin: Normal temperature, turgor, and texture; Psychiatric: Normal mood and affect. Alert and oriented to person, place, and time. Lab and Diagnostics Result Diagram: 05/03/1670405/03/16704 Microbiology UA pending X-Rays, CTs and MRIs 05/02/16 Chest Xray Interpretation: Chronic interstitial fibrosis without infiltrate. Interpretation / Wet Read by: Wet read ED physician 05/01/16 chest x-ray showed: IMPRESSION: Nondisplaced left lateral seventh rib fracture. Dictated by: Brittany Vidales M.D. on 04/30/2016 at 11:03 12-lead ECG ECG Interpretation: Afib/flutter and ventricular-paced rhythm. Rate 70. Time: 23:05 Interpreted by: ED physician Assessment & Plan Mrs. Odell is an 85-year-old female with history of interstitial lung disease, ischemic cardiomyopathy, and COPD, who presented by EMS to [facility] ED in moderate respiratory distress. She was admitted for evaluation and treatment of acute on chronic respiratory failure suspected to be secondary to acute exacerbation COPD, acute exacerbation CHF, and/or acute URI. - Hospital day 2 Acute on chronic respiratory failure, present on admission, ongoing - Pt on home O2 normally, but cannot recall baseline requirements - Likely secondary to COPD, and current URI - Likely worsened by her fall with left 6th non-displaced rib fracture causing shallow respiration because of the pain Coronavirus infection, acute, present on admission. Ongoing - Likely contributing to above - Supportive therapies COPD exacerbation, acute, present on admission, ongoing - PCR ordered: Coronavirus as above - DuoNebs, albuterol nebs as necessary - Prednisone 40mg daily x4 days - Oxygen for saturation 88%-92% Suspected acute systolic CHF exacerbation, present on admission. Unlikely - Less likely given pt does not have any edema in her lower extremities, and no crackles or wheezes were auscultated at time of rounding. - BNP: 12,408 - CXR: interstitial fibrosis without congestion - IV lasix 40 mg in the ED. - ECHO (02/21/2016):Echocardiogram report from 02/21/16 (two months ago): LVEF 25 +/- 5%. Global hypokinesis of LV. Paced rhythm. Severe tricuspid regurgitation. No significant change from echo of 01/14/16. - Home medications to be continued Elevated lactic acid, present on admission, resolved - 2.1 at admission, normal now. Non-displaced fracture of left lateral sixth rib, present on admission, acute. Presumed stable - CXR 05/02: Minimally displaced left sixth rib fracture - Pain medication as needed - Aqua pad Atrial fibrillation, present on admission, chronic - on Coumadin at home which was subtherapeutic. Continue Coumadin per pharmacy - Continue carvedilol Hypothyroidism, present on admission, chronic - TSH 8.240 - fT4 in am - Will continue Synthroid - Recommend outpatient follow up for adjustments Depression, present on admission, chronic - Continue Paroxetine Bowel regime as per protocol Antiemetics and analgesics prn Code status: Limited Resuscitation Status: CPR: Attempt Resuscitation, intubation. NO cardioversion/ defibrillation. Dispo: Pending medical stability, anticipated DC 05/04. No new medications/abx at DC. Pain Evaluation: Adequate Pain Control GI Prophylaxis: Proton Pump Inhibitor VTE Prophylaxis: Theraputic Anticoag with Warfarin Resuscitation Status: Limited Interventions (compressions and intubation OKAY. Does not want electric shock) Limited Interventions: Compressions, Intubation w Mech Vent, BiPAP, Medications and IV Fluid (No cardioversion/defibrillation) Attending Statement The patient was seen and examined together with Dr. Garrett on 05/03/2016 and I agree with the history, exam and plan as outlined in the note above. Abby Garrett DO May 03, 2016 16:41 Dejon Parks MD May 04, 2016 09:16
--- NOTE | 2016-05-03 18:43 | NUR ---
Respiratory Tachypenea and labored respirations continue. Pt reports breathing feels the same as it does at home. Lung sound clear. Viral panel shows Hall virus. Reports home O2 use is infrequent and when used, used HS. Maintaining O2 sats in low 90s on RA at rest and with activity sats were 86% and recovered instantly upon sitting to 88-90% on RA.
[2016-05-03] MEDS: PARoxetine 20 mg Tablet PO SCH (20:12)
[2016-05-04] VITALS (14 sets, daily range): BP systolic 89–132; BP diastolic 53–77; PULSE 69–71; RESP 16–22; O2SAT 91–96
--- NOTE | 2016-05-04 05:49 | NUR ---
Pain/NOC Shift: Pt c/o rib pain 12/03, pain medication administered; effective. Pt slept most of the night, pleasant and cooperative with care.
[2016-05-04 06:44] LABS: INR 2.21 ratio
[2016-05-04 06:53] LABS: BASOPHILS % (AUTO) 0.1 % (0-3); EOSINOPHILS % (AUTO) 0 % (0-5); Mean Corpuscular Hemoglobin 32.9 pg (27.0-35.0); Mean Corpuscular Volume 96.9 fL (81-100); Platelet Count 168 bil/L (150-400)
[2016-05-04 07:33] LABS: Magnesium 2.3 mg/dL (1.6-2.6); Phosphorus 3.7 mg/dL (2.5-4.9)
[2016-05-04] MEDS: predniSONE 20 mg Tablet PO SCH (08:15)
[2016-05-04] MEDS ORDERED: guaiFENesin 20 mg/mL 10 mL Syrup PO ONE (09:10)
--- NOTE | 2016-05-04 10:43 | NUR ---
Social Work-readiness for discharge: Data:EMR reviewed. Pt is on day 2 of hospitalization for respiratory distress per H&P. Pt may be medically stable to leave later this afternoon. PENELOPE met with pt, , and daughter at bedside to discuss discharge planning, SW role explained. PT worked with pt yesterday and they are recommending home with HH services, pt ambulated about 50ft. SW discussed with pt and family and they are in agreement with these services. PENELOPE provided pt with HH choice list, pt has no preference. PENELOPE referred to the rotating calendar and made referral to [facility] for RN,OT,PT, and INSURANCE AGENCY OWNER, access given. Erick Magdi with [facility] confirms that they have availability starting on Saturday 05/06. looking into private pay caregiving, but has all the resources at home. Daughter states she will be able to assist at home. PENELOPE confirms pt does have home O2. F2F in folder. SW will continue to follow. Assessment:Pt who is independent at baseline. Plan:Pt to discharge home when medically stable via POV. Referral made to [facility] with RN,PT,OT, and INSURANCE AGENCY OWNER. F2F in folder. SW will continue to follow. EAMON Duran Addendum: 05/04/16 at 1514 by CHITRA DURAN F2F provided to Erick Magdi with [facility]. EAMON Duran
--- NOTE | 2016-05-04 10:43 | NUR ---
HH choice list given. EAMON Duran
[2016-05-04] MEDS: oxyCODONE-Acetamin 5-325 mg Tablet PO PRN ×3 (11:26→21:02)
--- NOTE | 2016-05-04 12:44 | PCM.PHAPRO ---
Progress shortness of breath Warfarin Management by Pharmacy Indication: Afib CHADS2-VASc: 5 Home Dose: 5mg Mon/Fri; 2.5 AOD INR Goal: 2-3 Duration: Unknown Anticoagulation Trends Lab Date Result Dose INR 05/01/16 1.89 None INR 05/02/16 1.78 5 mg INR 05/03/16 1.73 5 mg INR 05/04/16 2.21 Therapeutic bridge therapy: None Assessment/Plan - Therapeutic INR with uptrend. -Will decrease dose of to warfarin 2.5 mg today. Will attempt to keep patient on regimen as close to home regimen while inpatient. -Pharmacy to monitor INR/CBC/signs of bleeding while inpatient. Thanks, Chaim Lay Pharm.D. Chaim Lay May 04, 2016 12:44
--- NOTE | 2016-05-04 13:05 | PCM.PNMED ---
Subjective Date of Service May 04, 2016 Subjective Overnight: Last evening, O2 sat 86% with activity, quickly recovered to 88-90% on RA. Had 8/10 rib pain relieved by pain meds Today: States she feels somewhat overall better, but does not have much appetite this morning. Denies CP, SOB, N/V. Continues to be on supplemental oxygen 2.5L saturating in the low 90s. Exam Vital Signs Vital Sign - Last Date Time Temp Pulse Resp B/P Pulse Ox O2 Delivery O2 Flow Rate FiO2 05/04/16 09:27 69 91/53 05/04/16 09:18 36.0 20 93 Nasal Cannula 2.50 05/01/16 23:23 98 Intake and Output 05/03/16 05/03/16 05/04/16 Cumulative From/Thru 15:00 23:00 07:00 05/01/16 22:27 - 05/04/16 06:58 Intake Total 800 ml 200 ml 1945 ml Output Total 900 ml 500 ml 4450 ml Balance -100 ml -300 ml -2505 ml Intake Oral 800 ml 200 ml 1895 ml IV Total 50 ml Output Urine Total 900 ml 500 ml 4450 ml # Bowel Movements 0 0 Exam General: Alert and oriented. NAD, frail and thin, appropriately interactive HEENT: Normocephalic, atraumatic. Anicteric sclerae. Oropharynx with moist mucosus membranes. Neck: Supple with no JVD Cardiovascular: Regular rate and rhythm with no murmurs, rubs, or gallops Pulm: Normal respiratory effort with no use of accessory muscles. Diffused wheezes bilaterally. Msk: Tenderness to palpation on left lower ribs Extremities: No clubbing, cyanosis, edema. Skin: Normal turgor, warm and dry. Psychiatric: Normal mood and affect. IVs and Medications Medications Reviewed: Medications were reviewed in detail Lab and Diagnostics Result Diagram: 05/04/16 0500 05/04/16 0615 Microbiology UA pending X-Rays, CTs and MRIs 05/02/16 Chest Xray Interpretation: Chronic interstitial fibrosis without infiltrate. Interpretation / Wet Read by: Wet read ED physician 05/01/16 chest x-ray showed: IMPRESSION: Nondisplaced left lateral seventh rib fracture. Dictated by: Brittany Vidales M.D. on 04/30/2016 at 11:03 12-lead ECG ECG Interpretation: Afib/flutter and ventricular-paced rhythm. Rate 70. Time: 23:05 Interpreted by: ED physician Assessment & Plan Mrs. Odell is an 85-year-old female with history of interstitial lung disease, ischemic cardiomyopathy, and COPD, who presented by EMS to [facility] ED in moderate respiratory distress. She was admitted for evaluation and treatment of acute on chronic respiratory failure suspected to be secondary to acute exacerbation COPD, acute exacerbation CHF, and/or acute URI. - Hospital day 2 Acute on chronic respiratory failure, present on admission, ongoing - Pt on home O2 normally, but cannot recall baseline requirements - Likely secondary to COPD, and current URI - Likely worsened by her fall with left 6th non-displaced rib fracture causing shallow respiration because of the pain - Continues to need 2.5L at rest, desaturates to 86% with activity - PT recommending home health PT upon discharge, no further sessions needed during current hospitalization - Will order home oxygen eval on day of discharge Coronavirus infection, acute, present on admission. Ongoing - Likely contributing to above - Supportive therapies COPD exacerbation, acute, present on admission, ongoing - PCR ordered: Coronavirus as above - DuoNebs, albuterol nebs as necessary - Prednisone 40mg daily x4 days: 2/4 given today - Oxygen for saturation 88%-92% Suspected acute systolic CHF exacerbation, present on admission. Unlikely - Less likely given pt does not have any edema in her lower extremities, and no crackles or wheezes were auscultated at time of rounding. - BNP: 12,408 - CXR: interstitial fibrosis without congestion - IV lasix 40 mg in the ED. - ECHO (02/21/2016):Echocardiogram report from 02/21/16 (two months ago): LVEF 25 +/- 5%. Global hypokinesis of LV. Paced rhythm. Severe tricuspid regurgitation. No significant change from echo of 01/14/16. - Home medications to be continued Elevated lactic acid, present on admission, resolved - 2.1 at admission, normalized to 1.3 on05/02. Non-displaced fracture of left lateral sixth rib, present on admission, acute. Presumed stable - CXR 05/02: Minimally displaced left sixth rib fracture - Pain medication as needed - Aqua pad Atrial fibrillation, present on admission, chronic - on Coumadin at home which was subtherapeutic. Continue Coumadin per pharmacy, currently therapeutic at 2.21 - Continue carvedilol Subclinical hypothyroidism, present on admission, chronic - TSH 8.240 - fT4 1.37 - Will continue Synthroid - Recommend outpatient follow up for adjustments Depression, present on admission, chronic - Continue Paroxetine Bowel regime as per protocol Antiemetics and analgesics prn Code status: Limited Resuscitation Status: CPR: Attempt Resuscitation, intubation. NO cardioversion/ defibrillation. Dispo: Pending medical stability, anticipated DC 05/05. No new medications/abx at DC. GI Prophylaxis: Proton Pump Inhibitor VTE Prophylaxis: Theraputic Anticoag with Warfarin VTE Mechanical Devices: Venous Foot Pump Resuscitation Status: Limited Interventions (compressions and intubation OKAY. Does not want electric shock) Limited Interventions: Compressions, Intubation w Mech Vent, BiPAP, Medications and IV Fluid (No cardioversion/defibrillation) Attending Statement The patient was seen and examined together with Dr. Marino on 05/04/2016 and I agree with the history, exam and plan as outlined in the note above. Basilio Marino DO May 04, 2016 12:56 Dejon Parks MD May 05, 2016 10:01
[2016-05-04] MEDS: Sodium Chloride LOK Flush 10 mL Syringe IVFLUSH SCH ×3 (16:30→16:52)
[2016-05-04] MEDS: Albuterol-Ipratropium 3 mL Inhalation Solution NEB PRN (20:29)
[2016-05-04] MEDS: PARoxetine 20 mg Tablet PO SCH (21:02)
[2016-05-05] VITALS (8 sets, daily range): BP systolic 87–119; BP diastolic 53–74; PULSE 70–73; RESP 16–24; O2SAT 91–94
--- NOTE | 2016-05-05 05:00 | NUR ---
Candy Polisher Pt pleasant and cooperative. Reported 08/03 pain r/t rib fracture, does not like K-Pad but prefers to splint with blanket, one dose of oxycodone administered. Slept most of shift w/o complaint. Addendum: 05/05/16 at 0629 by AMELIA MTZ RN Pt reported pain increased after ambulation to 8/10. Dose oxycodone administered. Pain resolved and pt sleeping.
[2016-05-05 05:31] LABS: BASOPHILS % (AUTO) 0.1 % (0-3); EOSINOPHILS % (AUTO) 0.1 % (0-5); MONOCYTES % (AUTO) 6.5 % (4-12); Mean Corpuscular Hemoglobin 32.5 pg (27.0-35.0); Mean Corpuscular Volume 97.6 fL (81-100); NEUTROPHILS % (AUTO) 79.9 % (40-74); Platelet Count 161 bil/L (150-400)
[2016-05-05] MEDS: oxyCODONE-Acetamin 5-325 mg Tablet PO PRN ×2 (05:50→10:30)
[2016-05-05 05:58] LABS: INR 3.14 ratio
[2016-05-05 07:10] LABS: Vitamin B12 556 pg/mL (211-946)
[2016-05-05] MEDS: Sodium Chloride LOK Flush 10 mL Syringe IVFLUSH SCH ×2 (08:30→08:42)
[2016-05-05] MEDS: predniSONE 20 mg Tablet PO SCH (08:44)
[2016-05-05] MEDS ORDERED: PRE20 PO (10:30)
[2016-05-05] MEDS: Albuterol-Ipratropium 3 mL Inhalation Solution NEB PRN (11:23)
--- NOTE | 2016-05-05 11:50 | PCM.DIMED ---
Basilio Marino DO 05/05/16 1017: Discharge Instructions Date of Service May 05, 2016 Dates of Hospitalization May 02, 2016 at 00:42 Discharge Diagnosis Discharge Diagnosis Acute on chronic respiratory failure, present on admission, ongoing - Pt on home O2 normally, but cannot recall baseline requirements - Likely secondary to COPD, and current URI - Likely worsened by her fall with left 6th non-displaced rib fracture causing shallow respiration because of the pain - Continues to need 2.5L at rest, desaturates to 86% with activity - PT recommending home health PT upon discharge, no further sessions needed during current hospitalization - Will order home oxygen eval on day of discharge Coronavirus infection, acute, present on admission. COPD exacerbation, acute, present on admission, Suspected acute systolic CHF exacerbation, present on admission. Elevated lactic acid, present on admission, resolved Non-displaced fracture of left lateral sixth rib, present on admission, acute. Presumed stable Atrial fibrillation, present on admission, chronic Subclinical hypothyroidism, present on admission, chronic Depression, present on admission, chronic Medication Instructions Please stop taking the furosemide (Lasix) 40mg until you see , PCP within one week. Diet Heart Healthy Activity Limited until seen by PCP, Home Health Phyical Therapy Call your provider Fever or Chills, Shortness of breath, Chest pain Patient Instructions You are to take one last dose of 40mg prednisone tomorrow. Use oxygen as recommended by the respiratory therapist. We have given you an Atrovent inhaler until you see your PCP. Do not take your Coumadin for tonight and restart on your regular dosing starting tomorrow. You will be visited by physical therapy at home to work with you. Do not take Lasix (furosemide) 40mg until you see your PCP, Dr. Dunn. Please log your daily blood pressure and bring to the visit. Follow up with your PCP in 1 week. Please go to the ED if you have any sudden onset of fevers or chills, nausea or vomiting. Follow-up Provider: Julien Dunn MD Follow-up with PCP in: 1 week Dejon Parks MD 05/06/16 1052: Basilio Marino DO May 05, 2016 10:17 Dejon Parks MD May 06, 2016 10:52
[2016-05-05] MEDS ORDERED: ATRINH INH (12:29)
--- NOTE | 2016-05-05 14:12 | NUR ---
Social Work-discharge: Data:EMR Reviewed. Pt is on day 3 of hospitalization for respiratory distress per H&P. Pt is medically stable to discharge home today. PT has cleared pt for home with Services, walking 45 ft. SW has set pt up with HH services through [facility]. PENELOPE informed Erick Fairbanks [facility] liaison of discharge, F2F and orders provided for RN,PT, and OT. Erick confirms they will be able to start services on 05/07. PENELOPE confirmed plan with pt and at bedside, both in agreement. Pt to continue with home O2. pt's daughter to assist as needed home. All updated and agreeable to plan. Assessment:Pt who would benefit from HH. Plan:Pt to discharge home today via POV. F2F and orders given to [facility] for RN,PT, and OT. Pt to continue with Home O2. All updated and agreeable to plan. EAMON Duran
--- NOTE | 2016-05-05 14:33 | NUR ---
Discharge? Pt getting prepped for discharge,d/t low BP, discharge on hold a couple hrs. Will recheck VS in 2 hrs. Per verbal orders from Dr Parks-when SBP > 100, pt can discharge. Pt asymptomatic. Will continue with frequent rounding. Addendum: 05/05/16 at 182 by ELENITA MCCORMACK RN Pt discharged at 181 with and daughter via wc by primary RN. Discharge info discussed with both parties, questions answered. F/u appt is scheduled with PCP on wednesday to further evaluate BP. All personal belongings left with pt. VSS.
--- NOTE | 2016-05-05 15:31 | PCM.PNMED ---
Subjective Date of Service May 05, 2016 Subjective No overnight events. Patient states she usually doesn't eat much in the morning. Makes jokes about her hair today. States she is feeling much better than yesterday. SOB back to her baseline, per patient and . Denies CP, fevers, chills or nausea. Exam Vital Signs Vital Sign - Last Date Time Temp Pulse Resp B/P Pulse Ox O2 Delivery O2 Flow Rate FiO2 05/05/16 14:17 36.3 70 16 87/53 91 Nasal Cannula 1.00 05/01/16 23:23 98 Intake and Output 05/04/16 05/04/16 05/05/16 Cumulative From/Thru 15:00 23:00 07:00 05/01/16 22:27 - 05/05/16 05:35 Intake Total 974 ml 200 ml 3119 ml Output Total 800 ml 300 ml 5550 ml Balance 174 ml -100 ml -2431 ml Intake Oral 974 ml 200 ml 3069 ml IV Total 50 ml Output Urine Total 800 ml 300 ml 5550 ml # Bowel Movements 0 0 Exam General: Alert and oriented. NAD, frail, appropriately interactive HEENT: Normocephalic, atraumatic. Anicteric sclerae. Oropharynx with pink and moist. Neck: Supple with no JVD Cardiovascular: Regular rate and rhythm with no murmurs, rubs, or gallops Pulm: Normal respiratory effort with no use of accessory muscles. Crackles appreciated on bilateral lower lobes. Msk: Tenderness to palpation on left lower ribs Extremities: No clubbing, cyanosis, edema. Skin: Normal turgor, warm and dry. Psychiatric: Normal mood and affect. IVs and Medications Medications Reviewed: Medications were reviewed in detail Lab and Diagnostics Result Diagram: 05/05/1651405/05/16514 Microbiology UA pending X-Rays, CTs and MRIs 05/02/16 Chest Xray Interpretation: Chronic interstitial fibrosis without infiltrate. Interpretation / Wet Read by: Wet read ED physician 05/01/16 chest x-ray showed: IMPRESSION: Nondisplaced left lateral seventh rib fracture. Dictated by: Brittany Vidales M.D. on 04/30/2016 at 11:03 12-lead ECG ECG Interpretation: Afib/flutter and ventricular-paced rhythm. Rate 70. Time: 23:05 Interpreted by: ED physician Assessment & Plan Mrs. Odell is an 85-year-old female with history of interstitial lung disease, ischemic cardiomyopathy, and COPD, who presented by EMS to [facility] ED in moderate respiratory distress. She was admitted for evaluation and treatment of acute on chronic respiratory failure suspected to be secondary to acute exacerbation COPD, acute exacerbation CHF, and/or acute URI. - Hospital day 3 Acute on chronic respiratory failure, present on admission, improved - Pt on home O2 normally, but cannot recall baseline requirements - Likely secondary to COPD, and current URI - Likely worsened by her fall with left 6th non-displaced rib fracture causing shallow respiration because of the pain - Continues to need 2.5L at rest, desaturates to 86% with activity - PT recommending home health PT upon discharge, no further sessions needed during current hospitalization - RT recommends using oxygen throughout the day Coronavirus infection, acute, present on admission. improved - Likely contributing to above - Supportive therapies COPD exacerbation, acute, present on admission, ongoing - PCR ordered: Coronavirus as above - DuoNebs, albuterol nebs as necessary - Prednisone 40mg daily x4 days: 2/4 given today - Keep oxygen for saturation 88%-92% Suspected acute systolic CHF exacerbation, present on admission. Unlikely - Less likely given pt does not have any edema in her lower extremities, and no crackles or wheezes were auscultated at time of rounding. - BNP: 12,408 - CXR: interstitial fibrosis without congestion - IV lasix 40 mg in the ED. - ECHO (02/21/2016):Echocardiogram report from 02/21/16 (two months ago): LVEF 25 +/- 5%. Global hypokinesis of LV. Paced rhythm. Severe tricuspid regurgitation. No significant change from echo of 01/14/16. - Home medications to be continued Elevated lactic acid, present on admission, resolved - 2.1 at admission, normalized to 1.3 on05/02. Non-displaced fracture of left lateral sixth rib, present on admission, acute. Presumed stable - CXR 05/02: Minimally displaced left sixth rib fracture - Pain medication as needed - Aqua pad Atrial fibrillation, present on admission, chronic - on Coumadin at home which was subtherapeutic. Continue Coumadin per pharmacy, currently therapeutic at 2.21 - Continue carvedilol Subclinical hypothyroidism, present on admission, chronic - TSH 8.240 - fT4 1.37 - Will continue Synthroid - Recommend outpatient follow up for adjustments Depression, present on admission, chronic - Continue Paroxetine Bowel regime as per protocol Antiemetics and analgesics prn Code status: Limited Resuscitation Status: CPR: Attempt Resuscitation, intubation. NO cardioversion/ defibrillation. Dispo: Patient hypotensive at time of discharge. Anticipated discharge tomorrow once blood pressure stabilizes. No new medications/abx at DC. GI Prophylaxis: Proton Pump Inhibitor VTE Prophylaxis: Theraputic Anticoag with Warfarin VTE Mechanical Devices: Venous Foot Pump Resuscitation Status: Limited Interventions (compressions and intubation OKAY. Does not want electric shock) Limited Interventions: Compressions, Intubation w Mech Vent, BiPAP, Medications and IV Fluid (No cardioversion/defibrillation) Basilio Marino DO May 05, 2016 15:20
--- NOTE | 2016-05-06 13:49 | PCM.DC.MED ---
Discharge Summary Date of Service May 06, 2016 Dates of Hospitalization Date of Hospital Admission May 02, 2016 at 00:42 Date of Discharge: May 05, 2016 Providers: Admitting Physician: Ioana Teixeira MD Primary Care Physician: Julien Dunn MD Attending Physician: Ioana Teixeira MD Diagnosis at Time of Discharge Diagnosis at Time of Discharge Acute on chronic respiratory failure, present on admission, ongoing - Pt on home O2 normally, but cannot recall baseline requirements - Likely secondary to COPD, and current URI - Likely worsened by her fall with left 6th non-displaced rib fracture causing shallow respiration because of the pain - Continues to need 2.5L at rest, desaturates to 86% with activity - PT recommending home health PT upon discharge, no further sessions needed during current hospitalization - Will order home oxygen eval on day of discharge Coronavirus infection, acute, present on admission. COPD exacerbation, acute, present on admission, Suspected acute systolic CHF exacerbation, present on admission. Elevated lactic acid, present on admission, resolved Non-displaced fracture of left lateral sixth rib, present on admission, acute. Presumed stable Atrial fibrillation, present on admission, chronic Subclinical hypothyroidism, present on admission, chronic Depression, present on admission, chronic Procedures XRay, CTs & MRIs 05/02/16 Chest Xray Interpretation: Chronic interstitial fibrosis without infiltrate. Interpretation / Wet Read by: Wet read ED physician 05/01/16 chest x-ray showed: IMPRESSION: Nondisplaced left lateral seventh rib fracture. Dictated by: Brittany Vidales M.D. on 04/30/2016 at 11:03 ECG 12 Lead ECG Interpretation: Afib/flutter and ventricular-paced rhythm. Rate 70. Time: 23:05 Interpreted by: ED physician Brief History Mrs. Odell is an 85-year-old female with history of interstitial lung disease, ischemic cardiomyopathy and COPD who presented in moderate respiratory distress. She states that she has felt short of breath for the past 24-36 hours. She stated that she fell and broke her ribs one to two days ago. It was a "trip and fall" over an open cupboard door in her kitchen. Denies feeling dizzy or weak prior to the fall. Since then she has been having increasing work of breathing. She uses oxygen at night but does not know how much. Her was present in the ED to answer questions, but by the time she was admitted, her had left. Patient is a poor historian and unable to answer many of my questions. In the ED, vitals were 36.4; 70; 32; 97/54 and she used 4L by NC for saturation of 96%. Labs showed no leukocytosis, lactic acid of 2.1, ProBNP of 12,408; INR subtherapeutic at 1.89; UA had moderate epithelial cells. She was given DuoNEB inhaler x2, Zosyn x1, Solu-Medrol 125 mg by IV, furosemide 40mg by IV, albuterol neb x1. Respiratory rate and blood pressure normalized. . Hospital Course Mrs. Odell is an 85-year-old female with history of interstitial lung disease, ischemic cardiomyopathy, and COPD, who presented by EMS to [facility] ED in moderate respiratory distress. She was admitted for evaluation and treatment of acute on chronic respiratory failure suspected to be secondary to acute exacerbation COPD, acute exacerbation CHF, and/or acute URI. - Hospital day 3 Acute on chronic respiratory failure, present on admission, improved - Pt on home O2 normally, but cannot recall baseline requirements - Likely secondary to COPD, and current URI - Likely worsened by her fall with left 6th non-displaced rib fracture causing shallow respiration because of the pain - Continues to need 2.5L at rest, desaturates to 86% with activity - PT recommending home health PT upon discharge, no further sessions needed during current hospitalization - RT recommends using oxygen throughout the day Coronavirus infection, acute, present on admission. improved - Likely contributing to above - Supportive therapies COPD exacerbation, acute, present on admission, ongoing - PCR ordered: Coronavirus as above - DuoNebs, albuterol nebs as necessary - Prednisone 40mg daily x4 days: 2/4 given today - Keep oxygen for saturation 88%-92% Suspected acute systolic CHF exacerbation, present on admission. Unlikely - Less likely given pt does not have any edema in her lower extremities, and no crackles or wheezes were auscultated at time of rounding. - BNP: 12,408 - CXR: interstitial fibrosis without congestion - IV lasix 40 mg in the ED. - ECHO (02/21/2016):Echocardiogram report from 02/21/16 (two months ago): LVEF 25 +/- 5%. Global hypokinesis of LV. Paced rhythm. Severe tricuspid regurgitation. No significant change from echo of 01/14/16. - Home medications to be continued Elevated lactic acid, present on admission, resolved - 2.1 at admission, normalized to 1.3 on05/02. Non-displaced fracture of left lateral sixth rib, present on admission, acute. Presumed stable - CXR 05/02: Minimally displaced left sixth rib fracture - Pain medication as needed - Aqua pad Atrial fibrillation, present on admission, chronic - on Coumadin at home which was subtherapeutic. Continue Coumadin per pharmacy, currently therapeutic at 2.21 - Continue carvedilol Subclinical hypothyroidism, present on admission, chronic - TSH 8.240 - fT4 1.37 - Will continue Synthroid - Recommend outpatient follow up for adjustments Depression, present on admission, chronic - Continue Paroxetine Bowel regime as per protocol Antiemetics and analgesics prn Code status: Limited Resuscitation Status: CPR: Attempt Resuscitation, intubation. NO cardioversion/ defibrillation. Dispo: Patient hypotensive at time of discharge. Anticipated discharge tomorrow once blood pressure stabilizes. No new medications/abx at DC. Exam Vital Signs (Last) Date Time Temp Pulse Resp B/P Pulse Ox O2 Delivery O2 Flow Rate FiO2 05/05/16 17:33 72 101/63 05/05/16 14:17 36.3 16 91 Nasal Cannula 1.00 05/01/16 23:23 98 Exam General: Alert and oriented. NAD, frail, appropriately interactive HEENT: Normocephalic, atraumatic. Anicteric sclerae. Oropharynx with pink and moist. Neck: Supple with no JVD Cardiovascular: Regular rate and rhythm with no murmurs, rubs, or gallops Pulm: Normal respiratory effort with no use of accessory muscles. Crackles appreciated on bilateral lower lobes. Msk: Tenderness to palpation on left lower ribs Extremities: No clubbing, cyanosis, edema. Skin: Normal turgor, warm and dry. Psychiatric: Normal mood and affect. Test 05/01/16 22:30 05/01/16 23:05 05/02/16 00:27 05/02/16 06:15 Hold Purple Top Tube Received (Received) Hold Blue Top Tube Received (Received) Uric Acid 7.6mg/dL (2.6-7.2) Troponin T 0.010ug/L (0.0-0.011) Pro-B-Type Natriuretic Peptide 55018ld/mL (0-738) Prealbumin 13mg/dL (20-40) Vitamin B12 Level 556pg/mL (211-946) Folate ng/mL (.) Thyroid Stimulating Hormone (TSH) 8.240uIU/mL (0.450-4.500) Hold Red Top Tube Received (Received) Hold [place] Top Tube Received (Received) Procalcitonin 0.09ng/mL (See Comment) Urine Color Yellow (YELLOW) Urine Appearance Clear (CLEAR,HAZY) Urine pH 5.5 (5.0-8.0) Urine Specific [place] 1.010 (1.003-1.035) Urine Protein Negativemg/dL (NEG,TRACE) Urine Glucose (UA) Negativemg/dL (NEGATIVE) Urine Ketones Negativemg/dL (NEGATIVE) Urine Occult Blood Negative (NEGATIVE) Urine Nitrite Negative (NEGATIVE) Urine Bilirubin Negative (NEGATIVE) Urine Urobilinogen Normalmg/dL (NORMAL) Urine Leukocyte Esterase Small (NEGATIVE) Urine RBC 0-2/hpf (0-2) Urine WBC 6-10/hpf (0-5) Urine Epithelial Cells Moderate/hpf (NONE-MOD) Urine Crystals None seen (NONE SEEN) Urine Bacteria Moderate/hpf (NONE-FEW) Urine Hyaline Casts None/lpf (NONE) Urine Granular Casts None seen (NONE SEEN) Urine Waxy Casts None seen (NONE SEEN) Urine Red Blood Cell Casts None seen (NONE SEEN) Urine White Blood Cell Casts None seen (NONE SEEN) Urine Mucus Present (None Seen) Urine Trichomonas None seen (NONE SEEN) Urine Yeast None (NONE SEEN) Urinalysis Comment None Urine Culture Reflexed Indicated Lactic Acid Level 1.3mmol/L (0.4-2.0) Test 05/03/16 07:05 05/04/16 06:15 05/05/16 05:15 Total Bilirubin 1.0mg/dL (0.0-1.2) Aspartate Amino Transf (AST/SGOT) 19U/L (0-50) Alanine Aminotransferase (ALT/SGPT) 13U/L (0-32) Alkaline Phosphatase 86U/L (25-165) Total Protein 6.9g/dL (6.4-8.4) Albumin 3.8g/dL (3.4-5.0) Phosphorus Level 3.7mg/dL (2.5-4.9) Magnesium Level 2.3mg/dL (1.6-2.6) Free Thyroxine 1.37ng/dL (0.82-1.77) White Blood Count 13.3th/mm3 (3.8-10.1) Red Blood Count 4.25mil/mm3 (3.90-5.20) Hemoglobin 13.8g/dL (12.0-15.6) Hematocrit 41.5% (35.0-46.0) Mean Corpuscular Volume 97.6fL (81-100) Mean Corpuscular Hemoglobin 32.5pg (27.0-35.0) Mean Corpuscular Hemoglobin Concent 33.3% (32.0-37.0) Red Cell Distribution Width 15.4% (12.3-15.4) Platelet Count 161bil/L (150-400) Neutrophils (%) (Auto) 79.9% (40-74) Lymphocytes (%) (Auto) 12.9% (14-46) Monocytes (%) (Auto) 6.5% (4-12) Eosinophils (%) (Auto) 0.1% (0-5) Basophils (%) (Auto) 0.1% (0-3) Prothrombin Time 34.4sec (8.1-12.5) Prothromb Time International Ratio 3.14ratio Sodium Level 138mEq/L (134-144) Potassium Level 4.0mEq/L (3.5-5.2) Chloride Level 100mEq/L (97-108) Carbon Dioxide Level 25mmol/L (18-29) Blood Urea Nitrogen 45mg/dL (8-27) Creatinine 0.99mg/dL (0.57-1.00) Estimat Glomerular Filtration Rate 76mL/min (>59) Glucose Level 107mg/dL (60-99) Calcium Level 8.7mg/dL (8.5-10.1) Microbiology Results UA pending Discharge Medications Discharge Medications Carvedilol (Coreg) 12.5 Mg Tablet 12.5 MG PO DAILYWD (Reported) 1 tab at dinner Carvedilol (Carvedilol) 12.5 Mg Tablet 6.25 MG PO DAILYWM (Reported) Cyclosporine (Restasis) 1 Each Droperette 1 DROP BOTH_EYES BID (Reported) Furosemide (Lasix) 40 Mg Tablet 40 MG PO QAM (Reported) Ipratropium Corona (Atrovent HFA) 200 Puff/12.9 Gm Inhaler 2 PUFF INH QID Prescribed by: JAIRO MARINO DO Levothyroxine (Levothyroxine) 112 Mcg Tablet 112 MCG PO QAM (Reported) Multivitamin (Multivitamins) 1 Each Capsule 1 EACH PO DAILY (Reported) Paroxetine (Paroxetine) 20 Mg Tablet 20 MG PO HS (Reported) Prednisone (PredniSONE) 20 Mg Tablet 40 MG PO DAILY Prescribed by: JAIRO MARINO DO Spironolactone (Spironolactone) 25 Mg Tablet 12.5 MG PO DAILY (Reported) Vit A/Vit C/Vit E/Zinc/Copper (Preservision Areds Tablet) 1 Each Tablet 1 EACH PO BID (Reported) Warfarin Sodium (Warfarin Sodium) 5 Mg Tablet 5 MG PO Wednesday, Wednesday (Reported) Warfarin Sodium (Warfarin Sodium) 5 Mg Tablet 2.5 MG PO Wed,Wed,Wed,,Sat ( Reported) As needed Acetaminophen (Acetaminophen) 500 Mg Tablet 500 MG PO Q6H PRN PRN For Fever ( Reported) oxyCODONE-Acetaminophen 5-325 mg (oxyCODONE-Acetaminophen 5-325 mg) 1 Each Tablet 0.5-1 TAB PO Q6H PRN PRN For Pain Prescribed by: DIGNA CRAWFORD MD Additional med instructions Please stop taking the furosemide (Lasix) 40mg until you see , PCP within one week. Followup Plan Discharge Diet: Heart Healthy Discharge Activity: Limited until seen by PCP, Home Health Phyical Therapy Patient Instructions You are to take one last dose of 40mg prednisone tomorrow. Use oxygen as recommended by the respiratory therapist. We have given you an Atrovent inhaler until you see your PCP. Do not take your Coumadin for tonight and restart on your regular dosing starting tomorrow. You will be visited by physical therapy at home to work with you. Do not take Lasix (furosemide) 40mg until you see your PCP, Dr. Dunn. Please log your daily blood pressure and bring to the visit. Follow up with your PCP in 1 week. Please go to the ED if you have any sudden onset of fevers or chills, nausea or vomiting. Follow-up Provider: Julien Dunn MD Follow-up with PCP in: 1 week Time spent 30 minutes Attending Statement The patient was seen and examined together with Dr. Marino on 05/05/2016 and I agree with the history, exam and plan as outlined in the note above. copies to: Julien Dunn MD, Fumiko O DO May 06, 2016 13:47 Dejon Parks MD May 06, 2016 14:21
== END 2016-05-05 18:13 | disposition home or self-care (01) | DRG 189 ==
LOC: SED 22:19 → MPC 05-02 00:42 → UNDODISIN 05-05 17:40
PROVIDERS: ADMIT Specialist; ATTEND Specialist
DX: J96.20 Acute and chronic respiratory failure, unspecified whether with hypoxia or hypercapnia (principal); I50.21 Acute systolic (congestive) heart failure; J44.1 Chronic obstructive pulmonary disease with (acute) exacerbation; S22.32XA Fracture of one rib, left side, initial encounter for closed fracture; B97.29 Other coronavirus as the cause of diseases classified elsewhere; I48.2 Chronic atrial fibrillation; E03.9 Hypothyroidism, unspecified; F32.9 Major depressive disorder, single episode, unspecified; W01.0XXA Fall on same level from slipping, tripping and stumbling without subsequent striking against object, initial encounter; Y93.01 Activity, walking, marching and hiking; Y92.010 Kitchen of single-family (private) house as the place of occurrence of the external cause; Y99.9 Unspecified external cause status; Z95.0 Presence of cardiac pacemaker; Z79.01 Long term (current) use of anticoagulants; Z99.81 Dependence on supplemental oxygen

== ENCOUNTER 2016-07-17 22:38 | Inpatient (IN) | payer MEDICARE ==
[~2016-07-17] VITALS: Ht 152.4 cm; Wt 59.8 kg
[~2016-07-17 22:38] MED LIST changes: +CARV12.52 PO; -CARV6.25 PO; +CYCL1DRO BOTH_EYES; -FUR20 PO; +FURO-128 PO; -LEVO100T6 PO; +LEVO112T4 PO; -LOSA25TA21 PO; -PARO10TA2 PO; +PARO20TA5 PO; +PRE20 PO; -WARF2.5T82 PO; -WARF5TAB PO; +WARF5TAB7 PO
--- NOTE | 2016-07-17 22:39 | ED.REPORT ---
HPI-Dyspnea / Wheezing Date of Service Jul 17, 2016 ED Provider: Dr. Esequiel Sanchez M.D. An 86 year old female with a medical history including CHF, COPD, hypertension, nonischemic cardiomyopathy, CAD, and atrial fibrillation on warfarin s/p rib fractures presents to the ED via EMS with worsening shortness of breath onset six weeks ago. EMS found the patient in respiratory distress with a heart rate of 30-75bpm and an O2 sat of 82% on 3L O2. They were unable to palpate radial pulses. The patient has a nebulizer and is on home O2. She denies fever, chills , diaphoresis, cough, hematochezia, hematuria, hemoptysis, or other symptoms. Nursing Notes Stated Complaint: RESPIRATORY DISTRESS Nursing Notes Reviewed: Yes Allergies: Coded Allergies: codeine (Verified Adverse Reaction, Intermediate, Nausea,Vomiting, 07/17/16 ) Scheduled Carvedilol (Coreg) 12.5 Mg Tablet 12.5 MG PO DAILYWD TAKE 6.25 MG IN AM (W/ BREAKFAST) AND 12.5 MG IN PM (W/ DINNER) Carvedilol (Carvedilol) 12.5 Mg Tablet 6.25 MG PO DAILYWM TAKE 6.25 MG IN AM (W/ BREAKFAST) AND 12.5 MG IN PM (W/ DINNER) Cyclosporine (Restasis) 1 Each Droperette 1 DROP BOTH_EYES BID Furosemide (Lasix) 40 Mg Tablet 40 MG PO QAM Ipratropium/Albuterol Sulfate (Iprat-Albut 0.5-3(2.5) mg/3 mL Inhalant Soln) 3 Ml Ampul.neb 3 ML IH TID Levothyroxine (Levothyroxine) 125 Mcg Tablet 125 MCG PO QAM Multivitamin (Multivitamins) 1 Each Capsule 1 EACH PO DAILY Paroxetine (Paroxetine) 20 Mg Tablet 20 MG PO HS Spironolactone (Spironolactone) 25 Mg Tablet 12.5 MG PO DAILY Vit A/Vit C/Vit E/Zinc/Copper (Preservision Areds Tablet) 1 Each Tablet 1 EACH PO BID Warfarin Sodium (Warfarin Sodium) 5 Mg Tablet 5 MG PO MONDAYS TAKE 5 MG MONDAYS AND 2.5 MG ALL OTHER DAYS Warfarin Sodium (Warfarin Sodium) 5 Mg Tablet 2.5 MG PO DAILY EXCEPT MONDAYS TAKE 5 MG MONDAYS AND 2.5 MG ALL OTHER DAYS Scheduled PRN Acetaminophen (Acetaminophen) 500 Mg Tablet 500 MG PO Q6H PRN PRN For Fever oxyCODONE-Acetaminophen 5-325 mg (oxyCODONE-Acetaminophen 5-325 mg) 1 Each Tablet 0.5-1 TAB PO Q6H PRN PRN For Pain General Time Seen by MD: 22:38 Chief Complaint Shortness of breath Hx Obtained From: Patient, EMS Arrived By: Ambulance Sudden in Onset?: No Onset Occurred: More than a week ago... (6 weeks) Symptom Duration: Since onset Severity: Current: No pain currently Severity: Maximum: No pain Pertinent Negative: Pt denies other symptoms Pertinent Negative: Relieved by nothing Context Related History: Reports: COPD, Congestive heart failure, Coronary artery disease Recent Healthcare: No recent doctor visit Similar Sx Previous: Yes Past Medical History Past Medical History Notes: Admit May 02 through 05/06/2016 for chronic respiratory failure, COPD Past Medical History Severe nonischemic cardiomyopathy. Chronic atrial fibrillation on warfarin Severe systolic CHF, EF of 25-30% as of July 27 2015 Arthritis COPD/pulmonary fibrosis on home O2 Reports: Cancer, Congestive heart failure, Hypertension Reports: Atrial fibrillation, Depression, Thyroid disease Past Surgical History Rib fractures 04/30/2016 Right hip surgery Reports: Appendectomy, Cataract surgery, Tonsillectomy Reports: Pacemaker insertion Smoking History Former Smoker Social History Alcohol Use: "Social" Drug Use: Denies drug use Other Social History: Ambulatory Status Independent Review of Systems Constitutional: Denies: Chills, Fever Respiratory: Reports: Shortness of breath, Denies: Hemoptysis, Non-productive cough Skin: Denies Diaphoresis Complete sys rev & neg: except as marked. GI: Denies: Diarrhea, Hematemesis, Hematochezia, Vomiting Physical Exam Physical Exam Notes: Initial Vital Signs Vital Signs (First) Date Time Temp Pulse Resp B/P Pulse Ox O2 Delivery O2 Flow Rate FiO2 07/17/16 22:54 36.6 70 30 118/102 85 Simple Mask 8 07/17/16 23:11 50 Initial VS: Reviewed, Vital signs abnormal Head / Eyes: Atraumatic, Normocephalic Skin: Warm, Dry, No cyanosis Neurologic: Alert, Oriented Psychiatric: Mood/affect normal, Behavior normal, Normal thought content General/Constitutional: Awake Patient appears fatigued and drowsy but is able to open her eyes and answer questions Respiratory / Chest: Atraumatic, Breath sounds = bilat Resp Distress / Stridor: Positive: Resp distress severe Wheezing / Retractions: Positive: Wheezing moderate (Diffuse) Crackles throughout Cardiovascular: Heart rate NL, Regular rhythm (Paced), Heart sounds NL Trace edema at ankles Abdomen: Soft, Non-tender Interpretation & Diagnostics Venous Blood Gas Report: Time: 23:25 pH 7.336 pCO2 43 pO2 29.1 cHCO3 22.5 cBase -2.9 Lab Results Interpretation Result Diagram: 07/17/167 07/17/162326 Test 07/17/16 23:27 07/17/16 23:59 White Blood Count 8.0th/mm3 (3.8-10.1) Red Blood Count 4.89mil/mm3 (3.90-5.20) Hemoglobin 15.6g/dL (12.0-15.6) Hematocrit 47.3% (35.0-46.0) Mean Corpuscular Volume 96.7fL (81-100) Mean Corpuscular Hemoglobin 31.9pg (27.0-35.0) Mean Corpuscular Hemoglobin Concent 33.0% (32.0-37.0) Red Cell Distribution Width 17.7% (12.3-15.4) Platelet Count 129bil/L (150-400) Neutrophils (%) (Auto) 69.9% (40-74) Lymphocytes (%) (Auto) 21.5% (14-46) Monocytes (%) (Auto) 6.5% (4-12) Eosinophils (%) (Auto) 1.3% (0-5) Basophils (%) (Auto) 0.5% (0-3) Prothrombin Time 51.0sec (8.1-12.5) Prothromb Time International Ratio 4.62ratio Sodium Level 137mEq/L (134-144) Potassium Level 4.9mEq/L (3.5-5.2) Chloride Level 102mEq/L (97-108) Carbon Dioxide Level 20mmol/L (18-29) Blood Urea Nitrogen 34mg/dL (8-27) Creatinine 0.95mg/dL (0.57-1.00) Estimat Glomerular Filtration Rate 80mL/min (>59) Glucose Level 108mg/dL (60-99) Lactic Acid Level 3.4mmol/L (0.4-2.0) Calcium Level 9.4mg/dL (8.5-10.1) Magnesium Level 2.0mg/dL (1.6-2.6) Total Bilirubin 1.8mg/dL (0.0-1.2) Aspartate Amino Transf (AST/SGOT) 34U/L (0-50) Alanine Aminotransferase (ALT/SGPT) 24U/L (0-32) Alkaline Phosphatase 91U/L (25-165) Troponin T 0.010ug/L (0.0-0.011) Pro-B-Type Natriuretic Peptide 61773vr/mL (0-738) Total Protein 6.5g/dL (6.4-8.4) Albumin 3.5g/dL (3.4-5.0) Urine Color Yellow (YELLOW) Urine Appearance Hazy (CLEAR,HAZY) Urine pH 5.5 (5.0-8.0) Urine Specific [place] 1.010 (1.003-1.035) Urine Protein Negativemg/dL (NEG,TRACE) Urine Glucose (UA) Negativemg/dL (NEGATIVE) Urine Ketones Negativemg/dL (NEGATIVE) Urine Occult Blood Large (NEGATIVE) Urine Nitrite Negative (NEGATIVE) Urine Bilirubin Negative (NEGATIVE) Urine Urobilinogen Normalmg/dL (NORMAL) Urine Leukocyte Esterase Trace (NEGATIVE) Urine RBC 0-2/hpf (0-2) Urine WBC 6-10/hpf (0-5) Urine Epithelial Cells Moderate/hpf (NONE-MOD) Urine Crystals None seen (NONE SEEN) Urine Bacteria Few/hpf (NONE-FEW) Urine Hyaline Casts None/lpf (NONE) Urine Granular Casts None seen (NONE SEEN) Urine Waxy Casts None seen (NONE SEEN) Urine Red Blood Cell Casts None seen (NONE SEEN) Urine White Blood Cell Casts None seen (NONE SEEN) Urine Mucus Present (None Seen) Urine Trichomonas None seen (NONE SEEN) Urine Yeast None (NONE SEEN) Urinalysis Comment None Urine Culture Reflexed Indicated Lab Results Interpretation: CBC normal CMP normal INR supratherapeutic Troponin #1 negative Lactic acid elevated-without sepsis and strongly suspect congestive heart failure Blood cultures pending ProBNP severely elevated-double previous admission, arguing for CHF ECG Interpretation ECG Interpretation: Atrial fibrillation with a ventricular paced rhythm at a rate of 70, no interval change from prior EKG Time: 22:51 Interpreted by: ED physician X-Ray Chest Interpretation Chest Xray Interpretation: Cardiomegaly Mild CHF Increased scattered densities consistent with pulmonary fibrosis No gross interval change compared to 05/01/16 View: Portable, 1 view Interpretation / Wet Read by: Wet read ED physician Re-Eval/Medical Decision Med Decision/Clinical Course This is an 86-year-old female with a history of chronic atrial fibrillation on warfarin, severe nonischemic cardiomyopathy with an EF of 25% as of January, and a history of COPD/fibrosis with recent pulmonary function testing indicating minimal to no responsiveness to bronchodilator therapy who presents in severe respiratory distress by EMS from home. Patient is in such distress she cannot give much history, but states she has had slowly worsening shortness of breath in recent weeks-despite home O2 at 3 L, and became very severe. She denies chest pain, she denies fever-she reports a chronic cough. She has not noted any new edema, denies any new medication changes. She was hypoxic with a sat of 85% on oxygen for EMS, received neb on transfer, but is still in severe distress on arrival. Scattered wheezes and crackles throughout, she is trace edema, she is in atrial fibrillation with a paced rhythm. I discussed CODE STATUS with the patient-and she tells me that she has never had thoughts or discussion about CODE STATUS before, but that she would want to have intubation and CPR. No family is arrived for further discussion. The patient's enough distress to place her on BiPAP-with marked clinical improvement. Her workup to me is strongly suggestive mainly congestive heart failure-she has a proBNP that is doubled since April, she responded quite well to BiPAP and is much more comfortable on reexamination-her distress is resolved. It may be a component of COPD/pulmonary fibrosis contributing- certainly cuts are reserved. I doubt pneumonia, and although she has an elevated lactic acid given the strong suspicion for underlying congestive heart failure in a frail patient, I think fluid administration is likely be harmful. In fact the patient received diuresis. I have also not initiated antibiotics given my suspicion for CHF, the absence of fever, leukocytosis, or clinical findings of abdoul infection. The patient supratherapeutic on her warfarin, which is further argument that is not a pulmonary embolus. Patient did receive empiric steroids and nebulizers-but clinically was the BiPAP that has made marked improvement. A Ramos is being placed. Patient is being admitted for continued management. Case is discussed with the hospitalist. Source of Hx: Old records, EMS Re-Evaluation/Progress : Time of Eval: 00:15 Patient Status: Condition improved Re-Evaluation/Progress Note: Discussed with patient lab and x-ray results, diagnosis, and plan for admit. Patient agrees with plan for care and all questions were addressed. Consultation : Referral / Consult Name: Arturo Kang MD Consulted With: Hospitalist Call Returned at: 00:20 Short Filler Bunch Machine Operator: Agrees with eval, Agrees with plan, Accepts admit Differential Diagnosis: Positive: COPD exacerbation, Congestive heart failure, Dysrhythmia, Respiratory failure, Negative: Myocardial infarction, Pneumonia (chronic atrial fibrillation) Counseled Regarding: Diagnosis, Lab results, Need for admission Discharge & Departure Impression: Primary Impression: CHF exacerbation Additional Impressions: COPD exacerbation Supratherapeutic INR Chronic atrial fibrillation Elevated lactic acid level Hypoxia Hematuria Disposition: ADMITTED TO HOSPITAL Discharge Condition All VS Reviewed: Yes Condition: Improved Referrals: Julien Dunn MD (PCP) Crit Care Except Billable Proc Time Spent: 30-74 minutes Services Performed: Patient management by me, Time spent at bedside, Reviewing test results, Reviewing imaging, Discussing patient care, Documentation in record Scribe Attestation Portions of this note were transcribed by Brianne Best. I, Dr. Sanchez, personally performed the history, physical exam, and medical decision-making; I reviewed and confirmed the accuracy of the information in the transcribed note. Signed by: Gilles Ramirez, 07/18/2016, 00:35 copies to: Julien Dunn MD, Matthew F MD Jul 17, 2016 22:38 BRIANNE BEST Jul 17, 2016 22:46
[2016-07-17] MEDS ORDERED: Lidocaine 2% 5 mL Urojet Topical Jelly Syringe MUC_MEMBRM ONE (22:45)
[2016-07-17] MEDS ORDERED: Ipratropium 0.02% 0.5 mg/2.5 mL Inhalation Solution NEB ONE (22:50)
[2016-07-17] MEDS ORDERED: Albuterol 2.5 mg/3 mL Inhalation Solution NEB ONE (22:50)
[2016-07-17] MEDS ORDERED: MethylprednisoLONE Sodium Succinate 62.5 mg/mL 2 mL Inj IVPUSH ONE (22:50)
[2016-07-17 22:54] VITALS: BP 118/102; PULSE 70; RESP 30; O2SAT 85
[2016-07-17 23:11] VITALS: RESP 28; O2SAT 92
[2016-07-17 23:13] VITALS: PULSE 70; RESP 28; O2SAT 92
--- NOTE | 2016-07-17 23:30 | ABG ---
DateTimeAnalyzed 23:27:00 -_ pH ____7.336 - pCO2 ___43.3__ -mmHg pO2 ___29.1__ -mmHg HCO3- ___22.5__ -mmol/L ABE ___-2.9__ -mmol/L tHb ___15.6__ -g/dL O2Hb ___45.2__ -% COHb ____1.6__ -% MetHb ____0.8__ -% sO2 ___46.3__ -% FIO2 ___50.0__ -% CPAP ___16.0__ -cmH2O PEEP ____6.0__ -cmH2O Set_RR ___18.0__ -b/min Drawn By LAB - Date/Time Notified____ 23:30:00 -_ Spontaneous_RR ___28.0__ -b/min Oxygen Device 1 ____BIPAP - Notified By AF - Notified Whom ___Dr. Daniel - Age 79 -years B 756 -mmHg tO2 ____9.9__ -Vol% Mario test N/A -
[2016-07-17 23:36] LABS: BASOPHILS % (AUTO) 0.5 % (0-3)
[2016-07-17 23:38] LABS: EOSINOPHILS % (AUTO) 1.3 % (0-5); MONOCYTES % (AUTO) 6.5 % (4-12); Mean Corpuscular Hemoglobin 31.9 pg (27.0-35.0); Mean Corpuscular Volume 96.7 fL (81-100); NEUTROPHILS % (AUTO) 69.9 % (40-74)
[2016-07-17 23:57] LABS: Platelet Count 129 bil/L (150-400)
[2016-07-17 23:58] LABS: INR 4.62 ratio
[2016-07-17 23:59] LABS: TROPONIN T 0.01 ug/L (0.0-0.011)
[2016-07-18] VITALS (17 sets, daily range): BP systolic 95–137; BP diastolic 56–74; PULSE 58–71; RESP 17–28; O2SAT 93–99
[2016-07-18] MEDS ORDERED: Furosemide 10 mg/mL 4 mL Inj IVPUSH ONE (00:10)
[2016-07-18] MEDS ORDERED: Alum-Mag Hydrox-Simeth 30 mL Suspension PO PRN (00:15)
[2016-07-18] MEDS ORDERED: Senna-Docusate 8.6-50 mg Tablet PO PRN (00:15)
[2016-07-18] MEDS ORDERED: Ondansetron 2 mg/mL 2 mL Inj IVPUSH PRN (00:15)
[2016-07-18] MEDS ORDERED: Polyethylene Glycol (PEG) 17 Gm Powder PO PRN (00:15)
[2016-07-18 00:20] LABS: APPEARANCE,URINE HAZY (CLEAR,HAZY); COLOR,URINE YELLOW (YELLOW)
[2016-07-18 00:21] LABS: OCCULT BLOOD,URINE LARGE (NEGATIVE); PH,URINE 5.5 (5.0-8.0); UROBILINOGEN,URINE NORMAL (NORMAL)
[2016-07-18] MEDS ORDERED: LEVO125T6 PO (00:25)
[2016-07-18] MEDS ORDERED: IPRA3AMP IH (00:27)
[2016-07-18] MEDS ORDERED: Heparin 5,000 Unit/mL Inj SUBQ SCH (00:30)
[2016-07-18] MEDS: Sodium Chloride LOK Flush 10 mL Syringe IVFLUSH SCH ×4 (00:46→19:51)
--- NOTE | 2016-07-18 02:13 | PCM.ADCARE ---
Advance Care Planning Note Purpose of Encounter: Active Diagnoses: Acute Congestive heart Failure with non ischemic cardiomyopathy Chronic Hypoxic Respiratory failure with Advanced Pulmonary Fibrosis COPD These active diagnoses are sufficient risk that focused discussion on advance car planning is indicated in order to allow the patient to thoughtfully consider personal goals of care and if situations arise that prevent the ability to personally give input to insure appropriate representation of their personal desires through documentation or informed surrogate decision makers Parties in Attendance: Patient, me Decisional Capacity: Good and appropriate Plan: I reviewed her Advanced Pulmonary Fibrosis as well as Heart failure with systolic dysfunction with 30% EF and her desires for ongoing aggressive care, including potential intubation and mechanical ventilation as well as CPR. Also discussed who would speak on her behalf should she be unable to do so, she states her Tyler Odell will be her proxy. She understands her conditions for both her lung and heart disease carry poor prognosis with no good treatment options available but she would wanna fight it. CODE STATUS: Full Code. Patient wants to try intubation and CPR Time Spent Adv.Care Planning: Total time spent [id number] in education and discussion directly related to Advance Care Plannin minutes Arturo Kang MD Jul 18, 2016 01:22
--- NOTE | 2016-07-18 02:31 | PCM.HPMED ---
Subjective Date of Service Jul 18, 2016 Primary Provider: Admitting Physician: Primary Care Physician: Julien Dunn MD Attending Physician: Admit Status: From the Emergency Department, Full Admit, [facility] Telemetry Chief Complaint: Shortness of breathe History of Present Illness: Ama Odell is a 86 year old female with Chronic systolic heart failure with nonischemic cardiomyopathy, COPD, hypertension, Coronary artery disease, interstitial lung disease with chronic respiratory hypoxia respiratory failure and atrial fibrillation on warfarin who presents to [facility] emergency department via EMS with worsening shortness of breath onset six weeks ago. Patient states the dyspnea has been ongoing progressively worsening. Associated symptoms includes dry cough, exacerbation with exertion. Denies any fever or chills. Denies any leg edema although she has Orthopnea. Denies any sick contacts or recent travels. EMS found the patient with a heart rate of 30-75bpm, They were unable to palpate radial pulses. She has a nebulizer and is on 2L O2 at home. She reports compliance with her medications. She is on Aldactone and Coumadin. The patient denies diaphoresis, hematochezia, hematuria, hemoptysis. Within the last few months she had been diagnosed with Pulmonary fibrosis with advances stage by Dr Echeverria. She was placed on oxygen at home and is currently enrolled on Pulmonary rehab. Case discussed with Dr Sanchez, placed on BIPAP after ABG showed Hypoxia with significant improvement. Review of Systems: Pertinent positives as noted in HPI. All other systems were reviewed and are negative Allergies Coded Allergies: codeine (Verified Adverse Reaction, Intermediate, Nausea,Vomiting, 07/17/16 ) Home Medications From [facility], not yet confirmed Ama Odell [id number] 1930 07/02/2016 08:30 AM 04/30 carvedilol 12.5 mg tablet take 1 tablet by oral route 2 times every day with food Coumadin 5 mg tablet take one 5mg tab mon and fri and .5 tab the rest of the week multivitamin tablet take 1 tablet by oral route every day with food Paxil 20 mg tablet take 1 tablet by ORAL route every day PreserVision AREDS 14,320 unit-226 mg-200 unit capsule take 1 cap by mouth twice daily spironolactone 25 mg tablet take one tablet by oral route every day Tirosint 112 mcg capsule take 1 capsule by oral route every day PMH Severe nonischemic cardiomyopathy. Chronic atrial fibrillation. severe systolic CHF, EF of 25-30% as of July 27 2015 arthritis Cancer Hypertension Depression Thyroid disease Pulmonary fibrosis. Recently diagnosed by Dr Echeverria (Distributing Clerk) . Surgical History rib fractures 04/30/2016 right hip surgery Appendectomy Cataract surgery Tonsillectomy Pacemaker insertion Family History Father at age 51 unclear reason Mother at age 87 No history of interstitial lung disease or autoimmune disease Social History Hx Alcohol Use: Yes Hx Substance Use: No Hx Tobacco Use: Yes (quit 30 years ago) Smoking Status: Former Smoker Living Arrangement: with Family (with her ) Exam Vital Signs Vital Sign - Last Date Time Temp Pulse Resp B/P Pulse Ox O2 Delivery O2 Flow Rate FiO2 07/17/16 23:13 70 28 92 BiPAP 50 07/17/16 22:54 36.6 118/102 8 Exam General: Alert, Oriented X3, Cooperative, No acute Distress Eyes: PERRLA, Scleral Anicteric Mouth: Mouth Normal, Mucous Membranes Moist/[place] Neck: Supple, no Thyromegaly, trachea central. Chest & Lungs: Diffuse crackles and mild wheezing throughout lung field Cardiovascular: Normal S1, Normal S2, No Murmurs/Rubs/Gallops, Regular Rate/ Rhythm, (No JVD, no peripheral edema) Pulses: Radial (present and equal), Dorsalis Pedi (present and equal) Abdomen: Soft, Non-tender, Non-distended, Normoactive bowel tones. Musculoskeletal: Unremarkable. Normal range of motion, no swollen or erythematous joints Extremities: No edema, no cyanosis, no clubbing. Skin: No rashes. Warm and dry, no erythematous areas Neurological: Grossly neurologically intact, Normal Speech, Sensation Intact Lymphatic: Lymph nodes Cervical and Axillary not palpable Lab and Diagnostics Labs Laboratory Tests Test 07/17/16 23:27 07/17/16 23:59 White Blood Count 8.0th/mm3 (3.8-10.1) Red Blood Count 4.89mil/mm3 (3.90-5.20) Hemoglobin 15.6g/dL (12.0-15.6) Hematocrit 47.3% (35.0-46.0) Mean Corpuscular Volume 96.7fL (81-100) Mean Corpuscular Hemoglobin 31.9pg (27.0-35.0) Mean Corpuscular Hemoglobin Concent 33.0% (32.0-37.0) Red Cell Distribution Width 17.7% (12.3-15.4) Platelet Count 129bil/L (150-400) Neutrophils (%) (Auto) 69.9% (40-74) Lymphocytes (%) (Auto) 21.5% (14-46) Monocytes (%) (Auto) 6.5% (4-12) Eosinophils (%) (Auto) 1.3% (0-5) Basophils (%) (Auto) 0.5% (0-3) Prothrombin Time 51.0sec (8.1-12.5) Prothromb Time International Ratio 4.62ratio Sodium Level 137mEq/L (134-144) Potassium Level 4.9mEq/L (3.5-5.2) Chloride Level 102mEq/L (97-108) Carbon Dioxide Level 20mmol/L (18-29) Blood Urea Nitrogen 34mg/dL (8-27) Creatinine 0.95mg/dL (0.57-1.00) Estimat Glomerular Filtration Rate 80mL/min (>59) Glucose Level 108mg/dL (60-99) Lactic Acid Level 3.4mmol/L (0.4-2.0) Calcium Level 9.4mg/dL (8.5-10.1) Magnesium Level 2.0mg/dL (1.6-2.6) Total Bilirubin 1.8mg/dL (0.0-1.2) Aspartate Amino Transf (AST/SGOT) 34U/L (0-50) Alanine Aminotransferase (ALT/SGPT) 24U/L (0-32) Alkaline Phosphatase 91U/L (25-165) Troponin T 0.010ug/L (0.0-0.011) Pro-B-Type Natriuretic Peptide 58262rc/mL (0-738) Total Protein 6.5g/dL (6.4-8.4) Albumin 3.5g/dL (3.4-5.0) Urine Color Yellow (YELLOW) Urine Appearance Hazy (CLEAR,HAZY) Urine pH 5.5 (5.0-8.0) Urine Specific [address] 1.010 (1.003-1.035) Urine Protein Negativemg/dL (NEG,TRACE) Urine Glucose (UA) Negativemg/dL (NEGATIVE) Urine Ketones Negativemg/dL (NEGATIVE) Urine Occult Blood Large (NEGATIVE) Urine Nitrite Negative (NEGATIVE) Urine Bilirubin Negative (NEGATIVE) Urine Urobilinogen Normalmg/dL (NORMAL) Urine Leukocyte Esterase Trace (NEGATIVE) Urine RBC 0-2/hpf (0-2) Urine WBC 6-10/hpf (0-5) Urine Epithelial Cells Moderate/hpf (NONE-MOD) Urine Crystals None seen (NONE SEEN) Urine Bacteria Few/hpf (NONE-FEW) Urine Hyaline Casts None/lpf (NONE) Urine Granular Casts None seen (NONE SEEN) Urine Waxy Casts None seen (NONE SEEN) Urine Red Blood Cell Casts None seen (NONE SEEN) Urine White Blood Cell Casts None seen (NONE SEEN) Urine Mucus Present (None Seen) Urine Trichomonas None seen (NONE SEEN) Urine Yeast None (NONE SEEN) Urinalysis Comment None Urine Culture Reflexed Indicated Microbiology 07/17/16 Urine Culture, Received Pending Result Diagram: 07/17/16 3889 07/17/16 0398 Assessment & Plan Ama Odell is a 86 year old female with Chronic systolic heart failure with nonischemic cardiomyopathy, COPD, hypertension, Coronary artery disease, interstitial lung disease with chronic respiratory hypoxia respiratory failure and atrial fibrillation on warfarin who presents to [facility] emergency department via EMS with worsening shortness of breath 1. Acute on chronic hypoxia respiratory failure. Present on admission Etiology multifactorial with Acute Congestive heart failure likely to main issue. Patient already taking oxygen at home due to chronic hypoxia from Pulmonary Fibrosis. Other possible causes includes COPD exacerbation as well as worsening Interstitial lung disease. - continue BIPAP on oxygen supplementation - repeat ABG and adjust setting - treat underlying cause (see below) 2. Acute on Chronic systolic Heart failure. Present on admission Ischemic cardiomyopathy with EF 25-30%. Interesting that the patient is only on Aldactone but no loop diuretics. She was discharged with Lasix back in April. Compliance with medications as wells as dietary indiscretion are suspected. Troponin not elevated making ischemia less likely but completely ruled out at this stage. - Lasix 40 mg IV bid, titrate based on symptoms and fluid status - prescribe Lasix on discharge - complete echo requested - monitor weight daily - resume beta shanna and consider GLENNA inhibitors if no contraindications - consider Cardiology consult if symptoms do not improve 3. Interstitial Lung disease. Chronic Recent diagnosis based on CT results and Pulmonary function test. Work up for autoimmune disease still ongoing to fully evaluate etiology with exposure caused ruled out already - continue Pulmonary rehab - close monitoring with Dr Echeverria at Pulmonology clinic 4. Chronic Obstructive Pulmonary Disease. chronic Less likely this represents an acute exacerbation with no sputum or coughing changes. Unfortunately patient has allergy to influenza vaccination and did not get vaccinated. - hold off on steroids for now - continue DuoNeb PRN 5. Elevated lactic acid. Present on admission Due to tissue hypoxia due to Respiratory hypoxia and heart failure. - trending lactic levels till normal 6. Supra therapeutic INR. Present on admission NO bleeding noted and unclear if the elevation is due to a drug interaction. - holding Coumadin tonight - Pharmacy to manage Coumadin dosing 7. Chronic Atrial fibrillation [id number] score 6 with a Stroke risk of about 9.8%/yr. Will resume Coumadin when INR is at appropriate range to avoid any stroke. - monitor on telemetry - continue Carvedilol 12.5 mg bid for rate control - anticoagulations held due to elevated INR 8 Hypothyroidism, Chronic - continue Synthroid 112 mcg daily - checking TSH 9 Depression, Chronic - continue Paroxetine 20 mg daily - Acetaminophen as needed for mild pain/fever/headache - Bowel regimen as needed - Antiemetic as needed Patient admitted under inpatient status with expected length of stay > 2 midnights for severity of present symptoms, complexities of treatment plan and risk for adverse event . Resuscitation Status: CPR: Attempt Resuscitation Arturo Kang MD Jul 18, 2016 00:23 food Coumadin 5 mg tablet take one 5mg tab mon and fri and .5 tab the rest of the week multivitamin tablet take 1 tablet by oral route every day with food Paxil 20 mg tablet take 1 tablet by ORAL route every day PreserVision AREDS 14,320 unit-226 mg-200 unit capsule take 1 cap by mouth twice daily spironolactone 25 mg tablet take one tablet by oral route every day Resuscitation Status: CPR: Attempt Resuscitation Arturo Kang MD Jul 18, 2016 00:23
[2016-07-18 04:36] LABS: INR 4.48 ratio
--- NOTE | 2016-07-18 04:53 | NUR ---
Admit Pt arrived to [facility] room 2022 from ED via bed at approx. 0130; report received from My Purvis RN. All belongings transferred with pt. Pt on oxymask for transport, switched immediately to BiPAP once in room with 50% FiO2. Pt SpO2 98-99%, reports dyspnea "much better than it was". Admit documentation completed, med rec completed in ED. Pt denies pain. Information on CHF given to pt; family requested to bring copy of advanced directive. VSS. Tele V-paced 70s.
[2016-07-18] MEDS: Furosemide 10 mg/mL 4 mL Inj IVPUSH SCH ×2 (08:24→19:51)
--- NOTE | 2016-07-18 09:09 | DRSVH ---
PROCEDURE: X-RAY CHEST ONE VIEW, PORTABLE ([id number]) INDICATIONS: SHORTNESS OF BREATH TECHNIQUE: One view of the chest was acquired. COMPARISON: [facility], [place], CHEST 2VW, 12/26/2015, 12:34 PM. Merged With [facility], CR, XR CHES T 1VW (PORTABLE), 05/01/2016, 22:37. FINDINGS: Surgical changes and devices: Right chest wall pacemaker and leads appear stable in position. Lungs and pleura: There is mild blunting of the left costophrenic angle compatible with a small pleu ral effusion. There is mild pulmonary edema which appears slightly increased from the prior study. No pneumothorax or Mediastinum: Mediastinal contours appear unchanged. Heart size is mildly enlarged. Bones and chest wall: No suspicious bony lesions. Overlying soft tissues appear unremarkable. IMPRESSION: 1. Slightly increased pulmonary edema with a small left pleural effusion. Dictated by: Gabe Zazueta M.D. on 07/18/2016 at 8:59 Approved by: Gabe Zazueta M.D. on 07/18/2016 at 9:02
--- NOTE | 2016-07-18 10:04 | NUR ---
Social Work Note: Initial Assessment Data& Assessment: EMR reviewed. SW met with pt and pt Tyler at bedside to discuss discharge planning, SW role explained. Pt was resting, assessment information collected from pt . Ama Odell is a 86 year old female admitted on 07/17/2016 with worsening SOB secondary to respiratory failure, lung disease and COPD per H&P. Pt has Medicare and [employer] Supplemental insurance coverage. Pt sees Dr. Dunn for primary care. Pt and pt live in [place] in a one story home with one step to enter the home. Pt has not required any DME for ambulation up until a few days ago when she then started using her FWW. Pt uses 2L of oxygen through [employer] at baseline along with home nebulizer treatments. Pt has never had Home Health services or been to a SNF. Pt does not have VA benefits but does have LTC insurance. Pt has DPOA/Advance Directive paperwork completed, SW requested a copy when possible. Pt is feeling anxious about pt condition, psychosocial support provided. Pt shared that he has seen a decline in pt health and independence in the last couple of months. Pt explained that their daughter is very helpful with bringing prepped meals to the home but he has concerns about cooking for his and ability to leave the home very often. SW provided pt with Meals on Wheels information and the number to call to go through their intake process. SW also provided private caregiving information and went through the various options and services that they could choose from (cleaning, meal prep, etc.). Pt was also given a Senior Resource Guide to have as a reference at home. SW phone number provided on pt whiteboard. Pt denies any needs at this time. SW to continue to follow. Plan: Anticipated discharge home when medically ready, SW to continue to follow for respiratory and PT needs at time of discharge. SW to continue to follow for MD and PT evaluation and recommendations. Pt denies any needs at this time. SW to continue to follow. EAMON Burger Addendum: 03/25/17 at 1016 by KELI LANG Amended: Links added.
--- NOTE | 2016-07-18 17:48 | NUR ---
Bipap/Oxy The pt remained on bipap while sleeping this morning until 1330. Settings were at 10/6 and 45%. the pt then came off and went to 5L oxymask with sats staying in the low to mid 90's. The pt states "I'm feeling much better", and is taking in PO fluids and eating well.
[2016-07-19] VITALS (14 sets, daily range): BP systolic 92–116; BP diastolic 55–70; PULSE 70–73; RESP 18–26; O2SAT 93–99
--- NOTE | 2016-07-19 05:00 | NUR ---
Respiratory Pt on 5L oxymask at beginning of shift; SpO2 approx. 95%, pt reports feeling "much better than [she] was". Significant accessory muscle use in breathing and labored effort, though pt denied feeling particularly dyspneic. BiPAP at HS offered, pt denied initially but after education to purpose, agreeable to plan. FiO2 initiated at 45% and weaned to 35% this AM; SpO2 97%. VSS. Tele V-paced 70s.
[2016-07-19 05:59] LABS: INR 4.7 ratio
[2016-07-19] MEDS: Furosemide 10 mg/mL 4 mL Inj IVPUSH SCH ×2 (07:55→20:30)
[2016-07-19] MEDS: Sodium Chloride LOK Flush 10 mL Syringe IVFLUSH SCH ×2 (07:55→16:23)
[2016-07-19] MEDS ORDERED: Phytonadione (Neonate) 1 mg/0.5 mL Inj PO ONE (10:45)
--- NOTE | 2016-07-19 13:52 | PCM.PNMED ---
Subjective Date of Service Jul 19, 2016 Subjective 86 year old female with Chronic systolic heart failure with nonischemic cardiomyopathy, COPD, hypertension, Coronary artery disease, interstitial lung disease with chronic respiratory hypoxia respiratory failure and atrial fibrillation on warfarin who presents to [facility] emergency department via EMS with worsening shortness of breath. She is tolerating BiPAP. States breathing is improving. No other complaints. Exam Vital Signs Vital Sign - Last Date Time Temp Pulse Resp B/P Pulse Ox O2 Delivery O2 Flow Rate FiO2 07/19/16 11:52 36.5 73 20 104/65 93 OxyMask 3.00 07/19/16 08:30 35 Intake and Output 07/18/16 07/18/16 07/19/16 Cumulative From/Thru 15:00 23:00 07:00 07/17/16 22:54 - 07/19/16 06:50 Intake Total 800 ml 120 ml 970 ml Output Total 1550 ml 1150 ml 3700 ml Balance -750 ml -1030 ml -2730 ml Intake Oral 800 ml 120 ml 970 ml Output Urine Total 1550 ml 1150 ml 3700 ml Exam General: Elderly woman, not able to speak at length on BiPAP, no acute distress HEENT: sclerae anicteric, oral mucosa moist Neck: no apparent JVD Chest: Reduced breath sounds but generally clear to auscultation Cardiac: S1S2, no murmur Abdomen: BS normal, non-tender Extremities: No edema Neuro: A&O, cranial nerves symmetric, moving 4 extremities normally IVs and Medications Medications Reviewed: Medications were reviewed in detail Lab and Diagnostics ProBNP: 07/17 21,711 07/19 16,210 TSH 20.4 INR: On no warfarin since admission 4.6 07/18 4.5 07/19 4.7 Arterial blood gas: DateTimeAnalyzed 23:27:00 -_ pH ____7.336 - pCO2 ___43.3__ -mmHg pO2 ___29.1__ -mmHg HCO3- ___22.5__ -mmol/L FIO2 ___50.0__ -% Result Diagram: 07/17/16 2327 07/19/16 0500 X-Rays, CTs and MRIs PROCEDURE: X-RAY CHEST ONE VIEW, PORTABLE ([id number]) IMPRESSION: 1. Slightly increased pulmonary edema with a small left pleural effusion. Dictated by: Gabe Zazueta M.D. on 07/18/2016 at 8:59 . Assessment & Plan Ama Odell is a 86 year old female with Chronic systolic heart failure with nonischemic cardiomyopathy, COPD, hypertension, Coronary artery disease, interstitial lung disease with chronic respiratory hypoxia respiratory failure and atrial fibrillation on warfarin who presents to [facility] emergency department via EMS with worsening shortness of breath Acute and/or high-risk problems: #. Acute on chronic hypoxia respiratory failure. Present on admission Etiology multifactorial: Acute on chronic CHF, pulmonary fibrosis, COPD. Patient already taking oxygen at home. Presentation has been subchronic. She has been on warfarin at therapeutic INR hence doubt pulmonary embolism. No evidence of acute infection or significant bronchospastic flare. - continue BIPAP on oxygen supplementation -Titrate oxygen to home settings of 2-4 L/m #. Acute on Chronic systolic Heart failure. Present on admission. Chronic ichemic cardiomyopathy with EF 25-30%. Patient has not been on loop diuretics. So far achieving net 1-2 L diuresis per day on current Lasix 40 twice a day. - complete echo requested - monitor weight daily - resume beta shanna - consider GLENNA inhibitors if renal function improves and blood pressure tolerates - consider Cardiology consult if symptoms do not improve #. Interstitial Lung disease. Chronic Recent diagnosis based on CT results and Pulmonary function test. Work up for autoimmune disease still ongoing to fully evaluate etiology with exposure caused ruled out already - continue Pulmonary rehab - Plan to consult Dr Echeverria on 07/20 #. Supra therapeutic INR. Present on admission. NO bleeding noted. Holding warfarin - Vitamin K 1 mg by mouth - Pharmacy to manage Coumadin dosing #. Hypothyroidism, Chronic. TSH moderately elevated. Unclear whether this is poor compliance versus reduced absorption from bowel edema. - continue Synthroid 112 mcg by mouth daily - 50 mg IV supplemental while hospitalized Resolving, stable or chronic problems: #. Elevated lactic acid. Present on admission. Due to tissue hypoxia due to Respiratory hypoxia and heart failure. -Resolved #. Chronic Atrial fibrillation [id number] score 6 with a Stroke risk of about 9.8%/yr. Will resume warfarin when INR is at appropriate range to avoid any stroke. - monitor on telemetry - continue Carvedilol 12.5 mg bid for rate control - anticoagulations held due to elevated INR #. Chronic Obstructive Pulmonary Disease. chronic. FEV1/FVC was 92% in 05/2016. Disease seems primarily restrictive. No bronchospasm at present - hold off on steroids for now - continue DuoNeb PRN #. Depression, Chronic - continue Paroxetine 20 mg daily - Acetaminophen as needed for mild pain/fever/headache - Bowel regimen as needed - Antiemetic as needed Patient admitted under inpatient status with expected length of stay > 2 midnights for severity of present symptoms, complexities of treatment plan and risk for adverse event . Resuscitation Status: CPR: Attempt Resuscitation Time spent 40 minutes Kendall Martines MD Jul 19, 2016 13:52
--- NOTE | 2016-07-19 16:16 | NUR ---
O2/Lasix The pt began the shift on bipap 35% with sats holding in the upper 90's. At 1130, the pt came off and went to 5L oxy mask with sats in the low to mid 90's - Pt tolerating well. The pt is eating well, and states she is starting to "fell better". IV lasix given this morning with good urine output and better O2 sats.
[2016-07-19] MEDS: Levothyroxine 100 mCg/5 mL Inj IV SCH (16:22)
[2016-07-20] VITALS (11 sets, daily range): BP systolic 88–108; BP diastolic 53–72; PULSE 69–74; RESP 16–22; O2SAT 92–97
[2016-07-20] MEDS: Sodium Chloride LOK Flush 10 mL Syringe IVFLUSH SCH ×3 (03:52→16:24)
[2016-07-20 04:36] LABS: INR 2.82 ratio
--- NOTE | 2016-07-20 05:53 | NUR ---
Resp/BP Pt on 5L O2 per oxymask all night with sats in low to mid 90's. BP at HS was 92/55, MD called and order received to hold HS Lasix and Metoprolol doses. Pt A&O, denies pain all shift, turned PRN for comfort.
[2016-07-20] MEDS: Levothyroxine 100 mCg/5 mL Inj IV SCH (08:30)
[2016-07-20] MEDS: Furosemide 10 mg/mL 4 mL Inj IVPUSH SCH ×2 (08:30→20:30)
--- NOTE | 2016-07-20 10:14 | PCM.PNMED ---
Subjective Date of Service Jul 20, 2016 Exam Vital Signs Vital Sign - Last Date Time Temp Pulse Resp B/P Pulse Ox O2 Delivery O2 Flow Rate FiO2 07/20/16 09:03 71 07/20/16 08:23 36.9 22 99/56 95 OxyMask 5.00 07/19/16 08:30 35 Intake and Output 07/19/16 07/19/16 07/20/16 Cumulative From/Thru 15:00 23:00 07:00 07/17/16 22:54 - 07/20/16 06:06 Intake Total 360 ml 100 ml 1430 ml Output Total 2000 ml 350 ml 6050 ml Balance -1640 ml -250 ml -4620 ml Intake Oral 360 ml 100 ml 1430 ml Output Urine Total 2000 ml 350 ml 6050 ml Lab and Diagnostics Result Diagram: 07/17/16232607/20/16 0355 X-Rays, CTs and MRIs PROCEDURE: X-RAY CHEST ONE VIEW, PORTABLE ([id number]) IMPRESSION: 1. Slightly increased pulmonary edema with a small left pleural effusion. Dictated by: Gabe Zazueta M.D. on 07/18/2016 at 8:59 . Assessment & Plan VTE Mechanical Devices: Intermittant Pneumatic CD Resuscitation Status: CPR: Attempt Resuscitation HENRY DECKER DO Jul 20, 2016 10:14 07/20/16 09:03 71 07/20/16 08:23 36.9 22 99/56 95 OxyMask 5.00 07/19/16 08:30 35 Intake and Output 07/19/16 07/19/16 07/20/16 Cumulative From/Thru 15:00 23:00 07:00 07/17/16 22:54 - 07/20/16 06:06 Intake Total 360 ml 100 ml 1430 ml Output Total 2000 ml 350 ml 6050 ml Balance -1640 ml -250 ml -4620 ml Intake Oral 360 ml 100 ml 1430 ml Output Urine Total 2000 ml 350 ml 6050 ml Lab and Diagnostics Result Diagram: 07/17/16232607/20/16 0355 X-Rays, CTs and MRIs PROCEDURE: X-RAY CHEST ONE VIEW, PORTABLE ([id number]) IMPRESSION: 1. Slightly increased pulmonary edema with a small left pleural effusion. Dictated by: Gabe Zazueta M.D. on 07/18/2016 at 8:59 . 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 Acute on chronic hypoxia respiratory failure. Present on admission Etiology multifactorial: Acute on chronic CHF, pulmonary fibrosis, COPD. Patient already taking oxygen at home. Presentation has been subchronic. She has been on warfarin at therapeutic INR hence doubt pulmonary embolism. No evidence of acute infection or significant bronchospastic flare. - continue BIPAP on oxygen supplementation -Titrate oxygen to home settings of 2-4 L/m #. Acute on Chronic systolic Heart failure. Present on admission. Chronic ichemic cardiomyopathy with EF 25-30%. Patient has not been on loop diuretics. So far achieving net 1-2 L diuresis per day on current Lasix 40 twice a day. - complete echo requested - monitor weight daily - resume beta shanna - consider GLENNA inhibitors if renal function improves and blood pressure tolerates - consider Cardiology consult if symptoms do not improve #. Interstitial Lung disease. Chronic Recent diagnosis based on CT results and Pulmonary function test. Work up for autoimmune disease still ongoing to fully evaluate etiology with exposure caused ruled out already - continue Pulmonary rehab - Plan to consult Dr Echeverria on 07/20 #. Supra therapeutic INR. Present on admission. NO bleeding noted. Holding warfarin - Vitamin K 1 mg by mouth - Pharmacy to manage Coumadin dosing #. Hypothyroidism, Chronic. TSH moderately elevated. Unclear whether this is poor compliance versus reduced absorption from bowel edema. - continue Synthroid 112 mcg by mouth daily - 50 mg IV supplemental while hospitalized Resolving, stable or chronic problems: #. Elevated lactic acid. Present on admission. Due to tissue hypoxia due to Respiratory hypoxia and heart failure. -Resolved #. Chronic Atrial fibrillation [id number] score 6 with a Stroke risk of about 9.8%/yr. Will resume warfarin when INR is at appropriate range to avoid any stroke. - monitor on telemetry - continue Carvedilol 12.5 mg bid for rate control - anticoagulations held due to elevated INR #. Chronic Obstructive Pulmonary Disease. chronic. FEV1/FVC was 92% in 05/2016. Disease seems primarily restrictive. No bronchospasm at present - hold off on steroids for now - continue DuoNeb PRN #. Depression, Chronic - continue Paroxetine 20 mg daily - Acetaminophen as needed for mild pain/fever/headache - Bowel regimen as needed - Antiemetic as needed Patient admitted under inpatient status with expected length of stay > 2 midnights for severity of present symptoms, complexities of treatment plan and risk for adverse event . VTE Mechanical Devices: Intermittant Pneumatic CD Resuscitation Status: CPR: Attempt Resuscitation HENRY DECKER DO Jul 20, 2016 10:14
--- NOTE | 2016-07-20 11:40 | DRSVH ---
[facility] [address] [place] [address] Echocardiogram Report Name: LEXIE NELSON BStudy Date: 06/25 Height: 66 in Hospital Exam Location: [facility] Weight: 130 lb Gender: Female BSA: 1.7 m2 : 1930 Age: 86 yrs BP: 108/68 mmHg Reason For Study: [facility] Ordering Physician: [facility] Performed By: Lemuel Kaufman Referring Physician: BRENT WHEAT Interpretation Summary The ejection fraction is estimated to be 10-15%. LVEF has deteriorated since last exam. There is severe global hypokinesis of the left ventricle. There is a significant dyssynchronous contraction pattern due to the paced rhythm. Paradoxical septal motion is consistent with right ventricular volume overload. The right ventricle is moderately dilated. The right ventricular systolic pressure is estimated at 42 mmHg assuming a right atrial pressure of 15 mm Hg. There is a partially flail tricuspid valve leaflet. There is severe tricuspid regurgitation. Procedure: A two-dimensional transthoracic echocardiogram with color flow and Doppler was performed. The study quality was technically good. Comparison is made with the echocardiogram of 02/21/16. The patient has a paced rhythm. Left Ventricle: Left ventricular wall thickness is borderline increased. The left ventricle is normal in size. The ejection fraction is estimated to be 10-15%. There is severe global hypokinesis of the left ventricle. There is a significant dyssynchronous contraction pattern due to the paced rhythm. Paradoxical septal motion is consistent with right ventricular volume overload. Right Ventricle: The right ventricle is moderately dilated. There is a pacemaker lead in the right ventricle. Right ventricular systolic function is severely reduced. Atria: The left atrium is mildly dilated. The right atrium is severely dilated. There is a catheter/pacemaker lead seen in the right atrium. The interatrial septum bows toward left atrium consistent with elevated right atrial pressure. Mitral Valve: The mitral valve leaflets are moderately calcified. There is mild mitral regurgitation. Aortic Valve: The aortic valve is trileaflet. The aortic valve opens well. There is trace aortic regurgitation. Tricuspid Valve: There is a partially flail tricuspid valve leaflet. There is severe tricuspid regurgitation. The right ventricular systolic pressure is estimated at 42 mmHg assuming a right atrial pressure of 15 mm Hg. Pulmonic Valve: The pulmonic valve leaflets are thin and pliable; valve motion is normal. There is mild pulmonic regurgitation. Great Vessels: The aortic root is normal size. The dimensions of the ascending aorta are normal. The pulmonary artery is normal size. The IVC is dilated (diameter is greater than 2.1 cm) and it collapses less than 50% with a sniff. This suggests a high right atrial pressure of 15 mm Hg. Pericardium/ Pleura There is no pericardial effusion. There is a moderately large left-sided pleural effusion. MMode/2D Measurements & Calculations LVIDd: 4.6 cm RA long axis: 6.5 cm LVOT diam LVIDs: 4.1 cm LA A2 area: 18.9 cm FS: 11.4 % LA A4 area: 19.8 cm RA area: 29.6 cm Ao root diam IVSd: 0.90 cm LA length (vol): 5.7 cm RA vol: 114.6 ml LVPWd: 0.97 cmLA vol: 55.7 ml RA : 68.8 ml/m2 asc Aorta Diam LA vol index: 33.5 ml/m IVC diam: 2.2 cm EDV(MOD-sp2) LV mcintosh. diameter/BSA LV sys. diameter/BSA RVD1 (basal) (cm/m^2): 2.8 (cm/m^2): 2.4 : 4.6 cm RVD2 (mid) TAPSE: 0.90 cm : 3.8 cm Doppler Measurements & Calculations Ao V2 max: 97.7 cm/sec MV E max eduardo MV E/A: 1.5 TR max eduardo Ao max P.8 mmHg : 47.0 cm/sec : 259.8 cm/sec Ao mean P.0 mmHg MV A max eduardo TR max PG LVOT Max Eduardo : 30.8 cm/sec : 27.0 mmHg : 37.4 cm/sec PA V2 max : 51.1 cm/sec SAMANTA(I,D): 1.7 cm PA mean PG sev ratio: 0.45 : 0.43 mmHg MV dec time: 0.16 sec Ao V2 mean LV V1 max PG PA V2 mean : 66.2 cm/sec : 30.4 cm/sec Ao V2 VTI: 11.7 cmLV V1 VTI PA pr(Accel) : 5.2 cm : 51.0 mmHg SAMANTA(V,D): 1.4 cm2 SAMANTA indexed to BSA (cm^2/m^2): 1.0 Electronically signed by: Avel Mace on Reading Physician:07/20/2016 11:39 AM
--- NOTE | 2016-07-20 11:53 | PCM.CHPMED ---
Subjective Date of Service: Jul 20, 2016 Provider requesting consult: Kendall Martines MD Primary Physician: Admitting Physician: Arturo Kang MD Primary Care Physician: Julien Dunn MD Attending Physician: Arturo Kang MD Chief Complaint: Chief Complaint: hypoxemic respiratory failure History of Present Illness: Pulmonology Consult: Attending Physician, Dr. Echeverria. Requesting Physician, Dr. Martines. Reason for Consult hypoxemia Ms. Odell is a 86 year old female with a past medical history of interstitial lung disease, COPD, HTN, congestive heart failure, non ischemic cardiomyopathy EF- 25%, coronary artery disease, A-fib (on coumadin), biventricular pacemaker presented to the the ED via EMS on 07/17/2016 with increasing SOB x 6 weeks. On scene EMS found pt in respiratory distress with O2 sat of 82% on 3L O2 with episodes of bradycardia. Pt states she had associated symptoms of SOB with exertion orthopnea and dry cough. She has been placed on BiPAP and is tolerating it well. Patient was first seen in 2009 by art coordinator for interstitial lung disease and CT of the chest done at the time showed severe emphysematous changes bilaterally with peripheral subpleural opacities. She was subsequently lost to follow-up until April 2016 when she was admitted for acute hypoxic respiratory failure. She was discharged with home O2 which she still wears mostly at nights. Repeat CT done in 2015 showed bilateral multilobar fibrotic interstitial lung disease. Patient was seen in 07/02/2016 by pulmonology who diagnosed her with interstitial lung disease Overnight: The patient remains on BiPAP 35% maintaining oxygen saturation in the upper 90s. Patient was weaned off BiPAP and placed on oxygen mask was some desaturation to the mid 90s. Lasix held secondary to blood pressure of 92/55. Exposures: States she has had birds and pets when she was a child no current pets, though her son and [id number] currently on apparent which she has occasional contact with. Used to work on a farm as a teenager. Denies any mold in her house, denies any knowledge of Asbestos exposure. Her last known travel experience was to [place] with her . Before that she and her traveled to [place], [place], and other hospital [facility] though not in a long while. She has traveled to [place] many years and and a distant trip to [place] 30 years ago. She lives with her in a home that they share, reports that he has not been sick and reports no other sick contacts. She did not get a pneumonia vaccination this year. Studies: Per Dr. Echeverria's note dated 07/02/2016 "CT of the chest 01/05/2016 showed bilateral multilobar fibrotic interstitial lung disease. Fibrosis was shown to be most dense in the right middle lobe and somewhat in the lingula in the subpleural regions. This is become worse when compared to prior studies in subpleural regions of the right middle lobe and lingula though appears to be improvement in the upper and lower lobes. It is no honeycombing or traction bronchiectasis" PFTs 06/02/16 show FVC 64%, FEV1 58%, ratio 0.67. No bronchodilator response. TLC 64%, RV 71%, DLCO 19% PFTs 2013 show FVC 85%, FEV1 84%, ratio 0.71, TLC 83%, RV 86%, DLCO 26% Echocardiogram 02/21/2016 EF 25% with severe global hypokinesis of left ventricle. RVSP estimated 43 mm. Severe tricuspid regurgitation. PMH Past Medical History Per outpatient records: Transient ischemic attack Atrial fibrillation, chronic Dilated Cardiomyopathy Dyspnea Dizziness Biventricular cardiac pacemaker Headache Essential hypertension Congestive heart failure, systolic Atrial flutter Cerebrovascular disease Pulmonary fibrosis Hyperlipidemia Surgical History rib fractures 04/30/2016 right hip surgery Appendectomy Cataract surgery Tonsillectomy Pacemaker insertion Home Medications Acetaminophen 500 mg every 6 when necessary Carvedilol 12.5 mg twice a day Cyclosporine Furosemide 40 mg daily He troponin/albuterol sulfate 3 mL ampule.nebulizer 3 times a day Levothyroxine 125 g daily Multivitamin 1 tablet daily Oxycodone acetaminophen 5/325 one tab every 6 hours when necessary Paroxetine 20 mg at bedtime Spironolactone 25 mg daily Vitamin A vitamin C vitamin E zinc copper 1 each by mouth twice a day Warfarin 5 mg Mondays Warfarin 2.5 mg Wednesday and Wednesday Allergies: Coded Allergies: codeine (Verified Adverse Reaction, Intermediate, Nausea,Vomiting, 07/17/16 ) Family History Family History Father at age 51 unclear reason Mother at age 87 No history of interstitial lung disease or autoimmune disease in parents siblings or children Social History Occupation: office/desk jobsHx Alcohol Use: YesAlcoholic Drinks Per Day: 1 in evening, hasn't in a whileHx Substance Use: NoHx Tobacco Use: Yes (20 year history 2 pack per day, quit 40 years ago) Smoking Status: Former Smoker Living Arrangement: with Family (with her ) Exam Vital Signs Vital Sign - Last Date Time Temp Pulse Resp B/P Pulse Ox O2 Delivery O2 Flow Rate FiO2 07/20/16 09:03 71 07/20/16 08:23 36.9 22 99/56 95 OxyMask 5.00 07/19/16 08:30 35 Intake and Output 07/19/16 07/19/16 07/20/16 Cumulative From/Thru 15:00 23:00 07:00 07/17/16 22:54 - 07/20/16 06:06 Intake Total 360 ml 100 ml 1430 ml Output Total 2000 ml 350 ml 6050 ml Balance -1640 ml -250 ml -4620 ml Intake Oral 360 ml 100 ml 1430 ml Output Urine Total 2000 ml 350 ml 6050 ml Additional Information: General: Awake and alert in no acute distress, appropriately interactive. Sitting up in bed without supplemental O2 in place HEENT: Normocephalic, atraumatic. External ears without defect. Pupils equal, round, and reactive to light and accommodation. Anicteric sclerae, moist conjunctivae, and no lid lag. Oropharynx with some erythema and dry mucosa Neck: Supple with full range of motion. No jugular venous distension. No bruits. Cardiovascular: Irregular rate with regular rhythm, blowing systolic murmur. Pulmonary: Decreased air movement bilaterally, Slight crackles heard in upper anterior lobes. Normal respiratory effort with no use of accessory muscles. Abdomen: Bowel tones present. Soft, nontender, nondistended. Extremities: No clubbing, cyanosis or edema Neurological: Cranial nerves grossly intact. Psychiatric: Normal mood and affect. Alert and oriented to person, place, and time. Lab and Diagnostics Result Diagram: 07/17/16 2327 07/20/16 0355 X-Rays, CTs and MRIs X-RAY CHEST ONE VIEW, PORTABLE IMPRESSION: 1. Slightly increased pulmonary edema with a small left pleural effusion. Dictated by: Gabe Zazueta M.D. on 07/18/2016 at 8:59 Assessment & Plan Assessment Ama Odell is a 86 year old female with PMH of COPD, ILD, CHF, CAD, HTN , A-fib who was admitted for acute on chronic hypoxemic respiratory failure. Hospital Day 4. 1. Acute on chronic hypoxemic respiratory failure. Present on admission. Improving This could be due to a variety of causes. CHF exacerbation, pulmonary fibrosis, COPD exacerbation. Pe is less likely as she is on chronic anticoagulation therapy with a serotherapeutic INR on admit. Infectious source does not seem likely as her white count remains normal and she is a-febrile. Procalcitonin pending. - She has come off BiPAP, and is back to 3L O2 NC (though this was not in place at time of interview) and she states that she feels fine without it. - Without nasal cannula in place Pt will desat to 88% on RA. When cannula is replaced O2 saturation levels will rise to ~93% - Incentive spirometry - She states that she is feeling much better though has not gotten out of the hospital bed. - PT consult - Continue supplemental O2 as needed. 2. Interstitial Lung disease. Chronic. PFTs as above, CT results as above. Per Out Pt pulmonology notes, RO-52 positive, RA Latex Turbid positive. Pt does not carry a Dx of RA - Continue Pulmonary rehab - Outpatient referal to Rheumatology 3. Acute on Chronic systolic Heart failure. Present on admission. Last ECHO 2015 showed EF 25-30%. Currently negative 4.6 L of fluid this hospital stay. - rECHO EF 10-15%, severe global hypokinesis, severe tricuspid regurg. - She has been on a home lasix dose for three months, though the Rx ended on May 2016 and was not renewed. - Restart Lasix, 20mg daily. - beta shanna held secondary to hemodynamic state - consider GLENNA inhibitors if renal function improves and blood pressure tolerates 4. Chronic Obstructive Pulmonary Disease. Present on admission. FEV1/FVC was 92 % in 05/2016. Disease seems primarily restrictive. No bronchospasm at present - DuoNeb PRN - Pt not on home steroids 5. Chronic Atrial fibrillation. Present on admission [id number] score 6 with a Stroke risk of about 9.8%/yr. Will resume warfarin when INR is at appropriate range to avoid any stroke. - Hold Carvedilol 12.5 secondary to hemodynamic state - Pharmacy to dose Coumadin secondary to supratherapeutic INR - Tele Problems: VTE Mechanical Devices: Intermittant Pneumatic CD Resuscitation Status: CPR: Attempt Resuscitation Attending Statement I have seen and examined this patient with the resident physician. Vital signs , labs, imaging have been reviewed. I agree with the assessment and plan above. Please refer to my separately dictated progress note for any modifications to above. Penelope Echeverria M.D. Pulmonary and Critical Care medicine Pager [phone] HENRY DECKER DO Jul 20, 2016 10:39 Penelope Echeverria MD Jul 20, 2016 13:59
--- NOTE | 2016-07-20 14:59 | CONS ---
[address] [address] CONSULTATION REPORT PATIENT: LEXIE NELSON : 1930 MR#: [id number] ADMIT: 07/18/2016 JOB ID: [id number] DATE OF SERVICE: 07/20/2016 PULMONARY CONSULTATION NOTE: The patient is an 86-year-old woman with known interstitial lung disease and ischemic cardiomyopathy with EF 25% admitted to the hospital with acute on chronic hypoxic respiratory failure. She is seen in consultation at the request of Dr. Martines for hypoxemia. The patient was seen and evaluated with resident physician, Nain Christianson. Please refer to his separate detailed note for additional information. HISTORY OF PRESENT ILLNESS: I met the patient once in clinic a couple of weeks ago for consultation regarding interstitial lung disease. She came into the hospital on July 17 with a few weeks of worsening shortness of breath and cough. She denies any fevers, chills, sweats, lower extremity edema. Due to some confusion, it appears that she has been off Lasix completely for at least a few months. She was told to take Lasix as needed for worsening lower extremity edema according to her . The patient herself seems to have significant memory issues and much of the history is obtained from her who seems to keep track of her health issues and all of her medications quite well. She and her both agree that she is doing significantly better now compared to the day that she came into the hospital. Over the last few days, she has gotten IV furosemide and has diuresed at least 3-4 L off. Her oxygenation, however, is still not quite back to her baseline as of three weeks ago. Right now she is wearing oxygen continuously to keep her sats in the low to mid 90s. When I saw her in clinic, her saturations were 91% on room air at rest and dropped to 86% with movement. She was wearing oxygen at home as needed and at night. Right now, it appears she needs oxygen all the time although she claims she feels back to her baseline with regards to her shortness of breath. Past medical history, social history, family history and review of systems as per Dr. Christianson's separate detailed note. PHYSICAL EXAMINATION: Complete examination is also in Dr. Christianson's note and I agree with that. She is afebrile. Vital signs reviewed and she is on 4-5 L of oxygen via nasal cannula. General: Thin, elderly woman. She is in no distress. Neuro: Clearly has memory issues and looks to her for many answers. Neck: No cervical lymphadenopathy. Chest: Coarse crackles heard at both lung bases. Heart: Soft systolic murmur. No lower extremity edema. LABORATORIES: Reviewed. WBC 8. Remaining labs are notable for creatinine of 0.95 on admission that went up to 1.27 on July 19 and is back down to 1.15. BNP on admission was 21,000 and is down to 16,000 as of yesterday. ASSESSMENT AND RECOMMENDATIONS: 1. Acute on chronic hypoxic respiratory failure. 2. Interstitial lung disease. 3. Decompensated systolic heart failure. RECOMMENDATIONS: This 86-year-old woman with known cardiomyopathy with EF down to 10%-15% from previous baseline of 20%-25% is here with worsening shortness of breath and hypoxia most likely due to decompensated heart failure. She does have known interstitial lung disease for which I saw her once in the clinic approximately two weeks ago but from what I can tell based on CT imaging and PFTs now compared to 2009 when she last had all this done, there is some progression in her interstitial lung disease but not a lot. I wonder if we should contact Cardiology about her. She does see Dr. Angel. Also on talking to the patient's and review of records, it appears she stopped her Lasix a few months ago and has been taking no Lasix at all. She was apparently instructed after one of her hospitalizations to take Lasix only if needed if she has leg swelling. I wonder if this has something to do with decompensation as well. She is now on 5 L oxygen which is much more than I would expect her to be on. We requested a procalcitonin and it is 0.09, so I do not think infection is playing a part. Her chest x-ray also does not show any worsening interstitial lung disease. My recommendations are that we continue with diuresis as much as tolerated, ideally with IV Lasix if possible. Also would recommend adding Lasix 20 mg p.o. daily as an outpatient. She also takes spironolactone. I asked her to use an incentive spirometer today to try to improve any atelectasis and requested physical therapy consult to work with her with regards to her fall risk and mobility, etc. Since her EF is down to 10%, please consider discussing with Cardiology as well to see if there is anything else to add or if she could have close outpatient followup with Dr. Angel. With regards to her interstitial lung disease, the etiology is not entirely clear. She does have significant subpleural and upper lobe predominant fibrotic disease with some progression but not a lot compared to 2010. She did have distant exposure to birds, which could have caused some hypersensitivity pneumonitis. She does have significant restrictive lung disease with total lung capacity around 64% and diffusing capacity of 19% on her most recent PFTs. Also some of her labs are mildly positive as an outpatient for rheumatoid factor, and anti RO 52 antibodies so I will send her to Rheumatology as an outpatient to be evaluated for rheumatoid arthritis. At this point, there is really no good treatment for her interstitial lung disease, however. She has already called pulmonary rehab but her visit with them will be postponed because of this hospitalization by a few more weeks. I will be available for any questions. Please contact me.
--- NOTE | 2016-07-20 15:50 | PCM.PNMED ---
Subjective Date of Service Jul 20, 2016 Subjective 86 year old female with Chronic systolic heart failure with nonischemic cardiomyopathy, COPD, hypertension, Coronary artery disease, interstitial lung disease with chronic respiratory hypoxia respiratory failure and atrial fibrillation on warfarin who presents to [facility] emergency department via EMS with worsening shortness of breath. Breathing is significantly improved today. She is now tolerating nasal cannula oxygen. She feels presyncopal with minimal exertion. No cough phlegm or fever. No other complaints. Exam Vital Signs Vital Sign - Last Date Time Temp Pulse Resp B/P Pulse Ox O2 Delivery O2 Flow Rate FiO2 07/20/16 15:08 70 94 Nasal Cannula 3.50 07/20/16 12:05 36.0 20 105/69 07/19/16 08:30 35 Intake and Output 07/19/16 07/19/16 07/20/16 Cumulative From/Thru 15:00 23:00 07:00 07/17/16 22:54 - 07/20/16 06:06 Intake Total 360 ml 100 ml 1430 ml Output Total 2000 ml 350 ml 6050 ml Balance -1640 ml -250 ml -4620 ml Intake Oral 360 ml 100 ml 1430 ml Output Urine Total 2000 ml 350 ml 6050 ml Exam General: Elderly woman, conversing comfortably HEENT: sclerae anicteric, oral mucosa moist Neck: JVD 4 cm above sternal notch Chest: Dry crackles at left base greater than right Cardiac: S1S2, I/ systolic murmur Abdomen: BS normal, non-tender Extremities: No edema Neuro: A&O, cranial nerves symmetric, moving 4 extremities normally IVs and Medications Medications Reviewed: Medications were reviewed in detail Lab and Diagnostics ProBNP: 07/17 21,711 07/19 16,210 TSH 20.4 INR: On no warfarin since admission 4.6 07/18 4.5 07/19 4.7 Arterial blood gas: DateTimeAnalyzed 23:27:00 -_ pH ____7.336 - pCO2 ___43.3__ -mmHg pO2 ___29.1__ -mmHg HCO3- ___22.5__ -mmol/L FIO2 ___50.0__ -% Result Diagram: 07/17/16 2327 07/20/16 0355 X-Rays, CTs and MRIs PROCEDURE: X-RAY CHEST ONE VIEW, PORTABLE ([id number]) IMPRESSION: 1. Slightly increased pulmonary edema with a small left pleural effusion. Dictated by: Gabe Zazueta M.D. on 07/18/2016 at 8:59 . Cardiac Echo Impressions Echocardiogram Report Name: LEXIE NELSON Study Date: 07/20/2016 Interpretation Summary The ejection fraction is estimated to be 10-15%. LVEF has deteriorated since last exam. There is severe global hypokinesis of the left ventricle. There is a significant dyssynchronous contraction pattern due to the paced rhythm. Paradoxical septal motion is consistent with right ventricular volume overload. The right ventricle is moderately dilated. The right ventricular systolic pressure is estimated at 42 mmHg assuming a right atrial pressure of 15 mm Hg. There is a partially flail tricuspid valve leaflet. There is severe tricuspid regurgitation. . Assessment & Plan 86 year old female with Chronic systolic heart failure with nonischemic cardiomyopathy, COPD, hypertension, Coronary artery disease, interstitial lung disease with chronic respiratory hypoxia respiratory failure and atrial fibrillation on warfarin who presents to [facility] emergency department via EMS with worsening shortness of breath Acute and/or high-risk problems: #. Acute on chronic hypoxia respiratory failure. Present on admission Etiology multifactorial: Acute on chronic CHF, pulmonary fibrosis, COPD. Patient already taking oxygen at home. Current echocardiogram suggests very severe chronic systolic CHF. Presentation has been subchronic. She has been on warfarin at therapeutic INR hence doubt pulmonary embolism. No evidence of acute infection or significant bronchospastic flare. - continue BIPAP on oxygen supplementation -Titrate oxygen to home settings of 2-4 L/m #. Acute on Chronic systolic Heart failure. Present on admission. Chronic ichemic cardiomyopathy previously with with EF 25-30%, current EF estimate is 10 %. Patient has not been on loop diuretics recently. So far achieving net 1-2 L diuresis per day on current Lasix 40 twice a day. Now experiencing mild orthostatic symptoms. - monitor weight daily - Low-dose metoprolol; pressure unlikely to support carvedilol - Hold on GLENNA inhibitors until renal function improves and blood pressure tolerates - Plan to discharge on by mouth Lasix 20 mg per day - Plan outpatient follow-up with cardiology Dr. Jaida Angel #. Interstitial Lung disease. Chronic Recent diagnosis based on CT results and Pulmonary function test. Work up for autoimmune disease still ongoing to fully evaluate etiology with exposure caused ruled out already - continue Pulmonary rehab -Further recommendations per pulmonary political consultant Dr Echeverria #. Supra therapeutic INR. Present on admission. NO bleeding noted. Holding warfarin - Vitamin K 1 mg by mouth administered one time with good response - Pharmacy to manage to needed Coumadin dosing #. Hypothyroidism, Chronic. TSH moderately elevated. Unclear whether this is poor compliance versus reduced absorption from bowel edema due to passive congestion. - 75 mg IV supplemental while hospitalized - Plan to return to by mouth levothyroxine at time of discharge Resolving, stable or chronic problems: #. Elevated lactic acid. Present on admission. Due to tissue hypoxia due to Respiratory hypoxia and heart failure. -Resolved #. Chronic Atrial fibrillation [id number] score 6 with a Stroke risk of about 9.8%/yr. Will resume warfarin. - monitor on telemetry #. Chronic Obstructive Pulmonary Disease. chronic. FEV1/FVC was 92% in 05/2016, with DLCO 19%. Disease seems primarily restrictive. No bronchospasm at present - hold off on steroids for now - continue DuoNeb PRN #. Depression, Chronic - continue Paroxetine 20 mg daily - Acetaminophen as needed for mild pain/fever/headache - Bowel regimen as needed - Antiemetic as needed Disposition: Anticipate discharged home with home health services on 07/21 . VTE Mechanical Devices: Intermittant Pneumatic CD Resuscitation Status: CPR: Attempt Resuscitation Time spent 35 minutes in patient assessment in care coordination including review of data with political consultant. Kendall Martines MD Jul 20, 2016 15:50
--- NOTE | 2016-07-20 15:53 | NUR ---
Evaluation completed. Please go to "Notes" then click on "Assessments and Notes" (bottom left corner of screen). Then select appropriate discipline tab on top of screen.
--- NOTE | 2016-07-20 17:57 | NUR ---
Respiratory/Output/BP/Batista No reports of chest pain/pressure/discomfort. Tele VPACED 70s. BP 99/56 this AM, 0830 Metoprolol and Furosemide withheld per MD orders. Per PT, patient became dizzy with ambulation and BP while standing was 80/58--MD notified. Reports SOB at rest. SPO2 on 5L oxymask 95%, SOB worsens Reported nausea for PADMAJA RN -- now resolved. No reports of n/v/d/c or abdominal pain. Batista patent and draining dark yellow urine to gravity, 200CC out in Batista --encouraging PO intake, batista removed per MD orders. Addendum: 07/20/16 at 1810 by SANAZ BAIN RN patient weaned to 3.5LNC with SPO2 in mid 90s.
--- NOTE | 2016-07-20 20:42 | NUR ---
BP Pt is hypotensive at 94/60 on the right arm. Pt asymptomatic. Provider paged and orders received to hold lasix and metoprolol unless next BP higher than 100 systolically. Pt aware. Continue to monitor.
[2016-07-21] MEDS: Sodium Chloride LOK Flush 10 mL Syringe IVFLUSH SCH ×2 (00:52→08:53)
[2016-07-21 03:25] VITALS: BP 100/72; PULSE 71; RESP 20; O2SAT 97
[2016-07-21 06:25] LABS: INR 1.79 ratio
[2016-07-21] MEDS ORDERED: Levothyroxine 100 mCg/5 mL Inj IV SCH (08:30)
[2016-07-21 08:48] VITALS: BP 122/85; PULSE 70; RESP 18; O2SAT 93
[2016-07-21] MEDS: Furosemide 10 mg/mL 4 mL Inj IVPUSH SCH (08:53)
[2016-07-21 10:13] VITALS: PULSE 70
--- NOTE | 2016-07-21 10:45 | NUR ---
Social Work: Readiness for d/c Data: Pt is on day 3 of hospitalization. EMR reviewed. Pt discussed in rounds. MD states pt likely ready for d/c today. PT recommending SNF at this time, pt walking 15 ft with FWW. AREA DEVELOPMENT CONSULTANT met with pt and spouse who decline SNF at this time, but are agreeable to HH. HH choice list provided, no preference stated. AREA DEVELOPMENT CONSULTANT referred to rotating calendar, referred pt to [facility] by calling [facility]. Access given, F2F ready for MD to sign in AREA DEVELOPMENT CONSULTANT folder. AREA DEVELOPMENT CONSULTANT will continue to follow. Assessment: Pt with assistance from spouse at baseline. Plan: Pt will d/c home via [facility], RN/PT/OT, likely today per . AREA DEVELOPMENT CONSULTANT will continue to follow. EAMON Huitron
[2016-07-21] MEDS ORDERED: FUR20 PO (11:35)
--- NOTE | 2016-07-21 11:50 | PCM.DIMED ---
Discharge Instructions Date of Service Jul 21, 2016 Dates of Hospitalization Jul 18, 2016 at 00:45 Discharge Diagnosis Discharge Diagnosis Acute systolic congestive heart failure; pulmonary edema; pulmonary fibrosis; atrial fibrillation; excessive anticoagulation Medication Instructions You should resume a Lasix pill every day. We have reduced the dose and giving you a new prescription for 20 mg furosemide (Lasix) daily. You should weigh yourself daily and record this. A gain of more than 4 pounds in 2 days indicates water retention. Increased shortness of breath when you lie down or swelling of ankles indicates water retention. If this occurs you should contact your physician for guidance. You should continue your current carvedilol and spironolactone which are given for congestive heart failure. You should continue with home oxygen and adjust the flow rate to achieve 90% saturation. Your INR level was higher than the target range of 2-3. We did not change your regular outpatient prescription for warfarin (Coumadin). You should have your INR tested within the next week and obtain guidance on further dosing. Thyroid blood tests indicate that she may not be getting enough thyroid hormone replacement. This may be due to congestive heart failure, and may improve with further therapy. At this time we recommend you continue with your usual dose of levothyroxine. You should have your thyroid tests rechecked in the next few weeks and medication adjustment by your primary care provider. Diet Low fat, Low Sodium Activity Other (Activity as tolerated. Daily walking is recommended.) Call your provider Shortness of breath Patient Instructions We recommend that she consider home health care nursing assistance to monitor your heart and lung condition. We have advised to that your heart function has declined significantly since it was last tested. This indicates that you have both severe heart failure as well as moderately severe pulmonary disease (pulmonary fibrosis and COPD). We have discussed the risks and benefits of CPR and intubation should you have a cardiac arrest. You have been advised that you would be very unlikely to survive CPR and mechanical ventilation, and that attempted CPR may result in a prolonged, unsuccessful hospital stay at the end of your life. We recommend that you discuss these issues with Dr. Dunn and complete the green POLST form , and keep this at home. Follow-up plan Please contact Dr. Angel's office and indicated that she were hospitalized for acute heart failure and we recommend a follow-up appointment in CHF clinic in 1- 2 weeks. Follow-up Provider: Julien Dunn MD Follow-up with PCP in: 1 week Provider: Jluis Angel MD Follow-up in: 1 week Kendall Martines MD Jul 21, 2016 11:50
--- NOTE | 2016-07-21 12:02 | PCM.DC.MED ---
Discharge Summary Date of Service Jul 21, 2016 Dates of Hospitalization Date of Hospital Admission Jul 18, 2016 at 00:45 Date of Discharge: Jul 21, 2016 Providers: Admitting Physician: Arturo Kang MD Primary Care Physician: Julien Dunn MD Attending Physician: Arturo Kang MD Diagnosis at Time of Discharge Diagnosis at Time of Discharge Acute systolic congestive heart failure; pulmonary edema; pulmonary fibrosis; atrial fibrillation; excessive anticoagulation Consultations Pulmonology, Dr. Danica Echeverria Procedures XRay, CTs & MRIs PROCEDURE: X-RAY CHEST ONE VIEW, PORTABLE ([id number]) IMPRESSION: 1. Slightly increased pulmonary edema with a small left pleural effusion. Dictated by: Gabe Zazueta M.D. on 07/18/2016 at 8:59 . Cardiac Echo Impression Echocardiogram Report Name: AMA ODELL Study Date: 07/20/2016 Interpretation Summary The ejection fraction is estimated to be 10-15%. LVEF has deteriorated since last exam. There is severe global hypokinesis of the left ventricle. There is a significant dyssynchronous contraction pattern due to the paced rhythm. Paradoxical septal motion is consistent with right ventricular volume overload. The right ventricle is moderately dilated. The right ventricular systolic pressure is estimated at 42 mmHg assuming a right atrial pressure of 15 mm Hg. There is a partially flail tricuspid valve leaflet. There is severe tricuspid regurgitation. . Brief History History of Present Illness (per admission note): Ama Odell is a 86 year old female with Chronic systolic heart failure with nonischemic cardiomyopathy, COPD, hypertension, Coronary artery disease, interstitial lung disease with chronic respiratory hypoxia respiratory failure and atrial fibrillation on warfarin who presents to [facility] emergency department via EMS with worsening shortness of breath onset six weeks ago. Patient states the dyspnea has been ongoing progressively worsening. Associated symptoms includes dry cough, exacerbation with exertion. Denies any fever or chills. Denies any leg edema although she has Orthopnea. Denies any sick contacts or recent travels. EMS found the patient with a heart rate of 30-75bpm, They were unable to palpate radial pulses. She has a nebulizer and is on 2L O2 at home. She reports compliance with her medications. She is on Aldactone and Coumadin. The patient denies diaphoresis, hematochezia, hematuria, hemoptysis. Pulmonology history (summarized by Dr. Enrique Christianson) Patient was first seen in 2009 by certified technician for interstitial lung disease and CT of the chest done at the time showed severe emphysematous changes bilaterally with peripheral subpleural opacities. She was subsequently lost to follow-up until April 2016 when she was admitted for acute hypoxic respiratory failure. She was discharged with home O2 which she still wears mostly at nights. Repeat CT done in 2015 showed bilateral multilobar fibrotic interstitial lung disease. Patient was seen in 07/02/2016 by pulmonology who diagnosed her with interstitial lung disease Per Dr. Echeverria's note dated 07/02/2016 "CT of the chest 01/05/2016 showed bilateral multilobar fibrotic interstitial lung disease. Fibrosis was shown to be most dense in the right middle lobe and somewhat in the lingula in the subpleural regions. This is become worse when compared to prior studies in subpleural regions of the right middle lobe and lingula though appears to be improvement in the upper and lower lobes. It is no honeycombing or traction bronchiectasis" PFTs 06/02/16 show FVC 64%, FEV1 58%, ratio 0.67. No bronchodilator response. TLC 64%, RV 71%, DLCO 19% PFTs 2013 show FVC 85%, FEV1 84%, ratio 0.71, TLC 83%, RV 86%, DLCO 26% Echocardiogram 02/21/2016 EF 25% with severe global hypokinesis of left ventricle. RVSP estimated 43 mm. Severe tricuspid regurgitation. . Hospital Course #. Acute on chronic hypoxia respiratory failure. Present on admission. Etiology multifactorial: Acute on chronic CHF, pulmonary fibrosis, COPD. Patient already taking oxygen at home. Current echocardiogram suggests very severe chronic systolic CHF, with interval worsening of LVEF. She is currently NYHA class IV. ProBNP markedly elevated. Pulmonary exam did not seem markedly bronchospastic. No evidence of acute infection. She responded to BiPAP with progressive diuresis of 2.5 kg. - continue BIPAP on oxygen supplementation - Titrate oxygen to home settings of 2-4 L/m #. Acute on Chronic systolic Heart failure. Present on admission. Chronic ichemic cardiomyopathy previously with with EF 25-30%, current EF estimate is 10 -15%. Patient has not been on loop diuretics recently.Apparently there is some confusion in her outpatient furosemide had been discontinued in the last few months. She achieved net 1-2 L diuresis per day on current Lasix IV 40 twice a day. - monitor weight daily - Hold on GLENNA inhibitors until renal function improves and blood pressure tolerates -- Resume daily oral furosemide at 20 mg per day - Continue carvedilol and spironolactone - Plan outpatient follow-up with cardiology Dr. Jaida Angel #. CODE STATUS during this hospitalization was full code. She and her were counseled regarding the current state of her cardiopulmonary disease in the very low likelihood of successful recovery from ACLS interventions. They were given a blank POLST form to discuss with Dr. Dunn. #. Interstitial Lung disease. Chronic Recent diagnosis based on CT results and Pulmonary function test. Work up for autoimmune disease still ongoing to fully evaluate etiology with exposure caused ruled out already - continue Pulmonary rehab -Further recommendations per pulmonary business systems consultant Dr Echeverria #. Supra therapeutic INR. 4.6 on admission. NO bleeding noted. Holding warfarin , but INR continued to climb. Vitamin K 1 mg by mouth administered one time with INR 1.79 on the day prior to discharge. Restarted warfarin prior to discharge -Continue prior outpatient warfarin dosing #. Hypothyroidism, Chronic. TSH moderately elevated at 20.4. Unclear whether this is poor compliance versus reduced absorption from bowel edema due to passive congestion. - 75 mg IV supplemental while hospitalized - Plan to return to by mouth levothyroxine 125 g per day at time of discharge - Recommend follow-up TFTs within 2-6 weeks and further levothyroxine adjustment as needed #. Chronic Atrial fibrillation. Heart rate in emergency department was noted to vary between 30-70. INR was supratherapeutic at 4.6 on admission. [id number] score 6 with a Stroke risk of about 9.8%/yr. - Continue carvedilol 6.2 5 AM, 12.5 p.m. - She may need beta shanna adjustment in order to tolerate GLENNA inhibitor - We will defer this decision to her clothing presser at outpatient follow-up #. Chronic Obstructive Pulmonary Disease. chronic. FEV1/FVC was 92% in 05/2016, with DLCO 19%. Disease seems primarily restrictive and interstitial. No bronchospasm at present - No steroids administered - continue DuoNeb PRN #. Depression, Chronic - continue Paroxetine 20 mg daily #. Asymptomatic bacteriuria. Borderline pyuria 6-10 WBC. No symptoms. Greater than 100-calorie counts of Escherichia coli, pansensitive. - No treatment given . Exam Vital Signs (Last) Date Time Temp Pulse Resp B/P Pulse Ox O2 Delivery O2 Flow Rate FiO2 07/21/16 10:13 70 07/21/16 10:05 Supplement Oxygen 07/21/16 08:48 18 122/85 93 4.00 07/21/16 03:25 36.3 07/19/16 08:30 35 Exam General: Elderly woman, conversing comfortably HEENT: sclerae anicteric, oral mucosa moist Neck: JVD 4 cm above sternal notch Chest: Dry crackles at left base greater than right Cardiac: S1S2, I/ systolic murmur Abdomen: BS normal, non-tender Extremities: No edema Neuro: A&O, cranial nerves symmetric, moving 4 extremities normally Test 07/17/16 23:27 07/17/16 23:59 07/18/16 02:15 07/18/16 04:10 White Blood Count 8.0th/mm3 (3.8-10.1) Red Blood Count 4.89mil/mm3 (3.90-5.20) Hemoglobin 15.6g/dL (12.0-15.6) Hematocrit 47.3% (35.0-46.0) Mean Corpuscular Volume 96.7fL (81-100) Mean Corpuscular Hemoglobin 31.9pg (27.0-35.0) Mean Corpuscular Hemoglobin Concent 33.0% (32.0-37.0) Red Cell Distribution Width 17.7% (12.3-15.4) Platelet Count 129bil/L (150-400) Neutrophils (%) (Auto) 69.9% (40-74) Lymphocytes (%) (Auto) 21.5% (14-46) Monocytes (%) (Auto) 6.5% (4-12) Eosinophils (%) (Auto) 1.3% (0-5) Basophils (%) (Auto) 0.5% (0-3) Magnesium Level 2.0mg/dL (1.6-2.6) Total Bilirubin 1.8mg/dL (0.0-1.2) Aspartate Amino Transf (AST/SGOT) 34U/L (0-50) Alanine Aminotransferase (ALT/SGPT) 24U/L (0-32) Alkaline Phosphatase 91U/L (25-165) Total Protein 6.5g/dL (6.4-8.4) Albumin 3.5g/dL (3.4-5.0) Thyroid Stimulating Hormone (TSH) 20.440uIU/mL (0.450-4.500) Urine Color Yellow (YELLOW) Urine Appearance Hazy (CLEAR,HAZY) Urine pH 5.5 (5.0-8.0) Urine Specific [place] 1.010 (1.003-1.035) Urine Protein Negativemg/dL (NEG,TRACE) Urine Glucose (UA) Negativemg/dL (NEGATIVE) Urine Ketones Negativemg/dL (NEGATIVE) Urine Occult Blood Large (NEGATIVE) Urine Nitrite Negative (NEGATIVE) Urine Bilirubin Negative (NEGATIVE) Urine Urobilinogen Normalmg/dL (NORMAL) Urine Leukocyte Esterase Trace (NEGATIVE) Urine RBC 0-2/hpf (0-2) Urine WBC 6-10/hpf (0-5) Urine Epithelial Cells Moderate/hpf (NONE-MOD) Urine Crystals None seen (NONE SEEN) Urine Bacteria Few/hpf (NONE-FEW) Urine Hyaline Casts None/lpf (NONE) Urine Granular Casts None seen (NONE SEEN) Urine Waxy Casts None seen (NONE SEEN) Urine Red Blood Cell Casts None seen (NONE SEEN) Urine White Blood Cell Casts None seen (NONE SEEN) Urine Mucus Present (None Seen) Urine Trichomonas None seen (NONE SEEN) Urine Yeast None (NONE SEEN) Urinalysis Comment None Urine Culture Reflexed Indicated Lactic Acid Level 1.9mmol/L (0.4-2.0) Hold [place] Top Tube Received (Received) Test 07/18/16 23:50 07/19/16 05:00 07/20/16 03:55 07/21/16 05:36 Troponin T 0.010ug/L (0.0-0.011) Pro-B-Type Natriuretic Peptide 98912ww/mL (0-738) Triglycerides Level 77mg/dL (0-149) Cholesterol Level 119mg/dL (100-199) LDL Cholesterol, Calculated 81.600mg/dL (0-99) VLDL Cholesterol 15.400mg/dL HDL Cholesterol 22mg/dL (>39) Cholesterol/HDL Ratio 5.41 (0.0-4.4) Procalcitonin 0.09ng/mL (0.00-0.08) Prothrombin Time 19.4sec (8.1-12.5) Prothromb Time International Ratio 1.79ratio Sodium Level 137mEq/L (134-144) Potassium Level 4.3mEq/L (3.5-5.2) Chloride Level 95mEq/L (97-108) Carbon Dioxide Level 29mmol/L (18-29) Blood Urea Nitrogen 40mg/dL (8-27) Creatinine 1.28mg/dL (0.57-1.00) Estimat Glomerular Filtration Rate 56mL/min (>59) Glucose Level 82mg/dL (60-99) Calcium Level 8.7mg/dL (8.5-10.1) Discharge Medications Discharge Medications Carvedilol (Coreg) 12.5 Mg Tablet 12.5 MG PO DAILYWD (Reported) TAKE 6.25 MG IN AM (W/ BREAKFAST) AND 12.5 MG IN PM (W/ DINNER) Carvedilol (Carvedilol) 12.5 Mg Tablet 6.25 MG PO DAILYWM (Reported) TAKE 6.25 MG IN AM (W/ BREAKFAST) AND 12.5 MG IN PM (W/ DINNER) Cyclosporine (Restasis) 1 Each Droperette 1 DROP BOTH_EYES BID (Reported) Furosemide (Lasix) 40 Mg Tablet 40 MG PO QAM (Reported) Furosemide (Furosemide) 20 Mg Tab 20 MG PO DAILY Prescribed by: CARSON MILTON MD Ipratropium/Albuterol Sulfate (Iprat-Albut 0.5-3(2.5) mg/3 mL Inhalant Soln) 3 Ml Ampul.neb 3 ML IH TID (Reported) Levothyroxine (Levothyroxine) 125 Mcg Tablet 125 MCG PO QAM (Reported) Multivitamin (Multivitamins) 1 Each Capsule 1 EACH PO DAILY (Reported) Paroxetine (Paroxetine) 20 Mg Tablet 20 MG PO HS (Reported) Spironolactone (Spironolactone) 25 Mg Tablet 12.5 MG PO DAILY (Reported) Vit A/Vit C/Vit E/Zinc/Copper (Preservision Areds Tablet) 1 Each Tablet 1 EACH PO BID (Reported) Warfarin Sodium (Warfarin Sodium) 5 Mg Tablet 5 MG PO MONDAYS (Reported) TAKE 5 MG MONDAYS AND 2.5 MG ALL OTHER DAYS Warfarin Sodium (Warfarin Sodium) 5 Mg Tablet 2.5 MG PO DAILY EXCEPT MONDAYS ( Reported) TAKE 5 MG MONDAYS AND 2.5 MG ALL OTHER DAYS As needed Acetaminophen (Acetaminophen) 500 Mg Tablet 500 MG PO Q6H PRN PRN For Fever ( Reported) oxyCODONE-Acetaminophen 5-325 mg (oxyCODONE-Acetaminophen 5-325 mg) 1 Each Tablet 0.5-1 TAB PO Q6H PRN PRN For Pain Prescribed by: DIGNA CRAWFORD MD Additional med instructions You should resume a Lasix pill every day. We have reduced the dose and giving you a new prescription for 20 mg furosemide (Lasix) daily. You should weigh yourself daily and record this. A gain of more than 4 pounds in 2 days indicates water retention. Increased shortness of breath when you lie down or swelling of ankles indicates water retention. If this occurs you should contact your physician for guidance. You should continue your current carvedilol and spironolactone which are given for congestive heart failure. You should continue with home oxygen and adjust the flow rate to achieve 90% saturation. Your INR level was higher than the target range of 2-3. We did not change your regular outpatient prescription for warfarin (Coumadin). You should have your INR tested within the next week and obtain guidance on further dosing. Thyroid blood tests indicate that she may not be getting enough thyroid hormone replacement. This may be due to congestive heart failure, and may improve with further therapy. At this time we recommend you continue with your usual dose of levothyroxine. You should have your thyroid tests rechecked in the next few weeks and medication adjustment by your primary care provider. Followup Plan Follow-up plan Please contact Dr. Angel's office and indicated that she were hospitalized for acute heart failure and we recommend a follow-up appointment in CHF clinic in 1- 2 weeks. Discharge Diet: Low fat, Low Sodium Discharge Activity: Other (Activity as tolerated. Daily walking is recommended.) Patient Instructions We recommend that she consider home health care nursing assistance to monitor your heart and lung condition. We have advised to that your heart function has declined significantly since it was last tested. This indicates that you have both severe heart failure as well as moderately severe pulmonary disease (pulmonary fibrosis and COPD). We have discussed the risks and benefits of CPR and intubation should you have a cardiac arrest. You have been advised that you would be very unlikely to survive CPR and mechanical ventilation, and that attempted CPR may result in a prolonged, unsuccessful hospital stay at the end of your life. We recommend that you discuss these issues with Dr. Dunn and complete the green POLST form , and keep this at home. Follow-up Provider: Julien Dunn MD Follow-up with PCP in: 1 week Provider: Jluis Angel MD Follow-up in: 1 week Time spent 35 min copies to: Julien Dunn MD; Jluis Angel MD; Penelope Echeverria MD, Jeffrey W MD Jul 21, 2016 12:02
--- NOTE | 2016-07-21 12:57 | NUR ---
Social Work: Discharge Data: Pt is on day 3 of hospitalization. EMR reviewed. D/C orders are in. Pt is set up with [facility], F2F given. SORT LINE WORKER will continue to follow if needs arise. Assessment: Pt with assistance from spouse at baseline. Plan: Pt will d/c home via [facility], RN/PT/OT. SORT LINE WORKER will continue to follow if needs arise. EAMON Huitron
[2016-07-21 13:01] VITALS: BP 111/65; PULSE 70; RESP 18; O2SAT 96
--- NOTE | 2016-07-22 15:42 | NUR ---
CHF follow-up pt states she is doing well since being home and denies any s/s r/t chf weighs self in AM, denies questions or concerns is receiving HH services so not eligible for oupt chf clinic at this time
== END 2016-07-21 14:24 | disposition home health service (06) | DRG 291 ==
LOC: SED 22:38 → PCC 07-18 00:45
PROVIDERS: ADMIT Hospitalist; ATTEND Hospitalist
PROC: 4A033R1 Measurement of Arterial Saturation, Peripheral, Percutaneous Approach (ICD-10-PCS; principal; 2016-07-17)
DX: I50.23 Acute on chronic systolic (congestive) heart failure (principal); J96.21 Acute and chronic respiratory failure with hypoxia; I42.8 Other cardiomyopathies; J44.9 Chronic obstructive pulmonary disease, unspecified; I10 Essential (primary) hypertension; I25.10 Atherosclerotic heart disease of native coronary artery without angina pectoris; Z79.01 Long term (current) use of anticoagulants; I48.2 Chronic atrial fibrillation; Z99.81 Dependence on supplemental oxygen; Z87.891 Personal history of nicotine dependence; E03.9 Hypothyroidism, unspecified; F32.9 Major depressive disorder, single episode, unspecified; R82.71 Bacteriuria

== ENCOUNTER 2016-08-17 00:45 | Inpatient (IN) | payer MEDICARE ==
[2016-08-17] VITALS (17 sets, daily range): BP systolic 92–132; BP diastolic 49–64; PULSE 65–72; RESP 18–30; O2SAT 92–99
[~2016-08-17] VITALS: Ht 170.2 cm; Wt 56.5 kg
[~2016-08-17 00:45] MED LIST changes: -ATRINH INH; -CARV12.5 PO; +FUR20 PO; -FURO-128 PO; +IPRA3AMP IH; -LEVO112T4 PO; +LEVO125T6 PO; -PRE20 PO
--- NOTE | 2016-08-17 01:01 | ED.REPORT ---
HPI-Dyspnea / Wheezing Date of Service Aug 17, 2016 ED Provider: Esequiel Sanchez MD Pt is an 86 y.o. female with an extensive medical hx including COPD, CHF, pacemaker insertion, severe nonischemic cardiomyopathy, and A-fib who presents to the ED via EMS accompanied by her c/o SOB onset 3 weeks ago and rapidly worsening today. She denies fever, diaphoresis, nausea, vomiting, and chest pain. reports that pt has had 10lbs of weight gain within the last week and has bilateral lower extremity swelling. Pt is currently on 3.5-4L of home O2. states he has been having to turn her oxygen up to 4L for the past few weeks. Pt was recently admitted from 07/18/16-07/21/16 for a CHF exacerbation. Pt is on Coumadin. Nursing Notes Stated Complaint: SHORTNESS OF BREATH Chief Complaint: Respiratory Complaints Nursing Notes Reviewed: Yes (Savosolar not reconciled) Allergies: Coded Allergies: codeine (Verified Adverse Reaction, Intermediate, Nausea,Vomiting, 08/17/16 ) Scheduled Carvedilol (Carvedilol) 12.5 Mg Tablet 6.25 MG PO DAILYWM TAKE 6.25 MG IN AM (W/ BREAKFAST) AND 12.5 MG IN PM (W/ DINNER) Cyclosporine (Restasis) 1 Each Droperette 1 DROP BOTH_EYES BID Furosemide (Furosemide) 20 Mg Tab 20 MG PO DAILY Ipratropium/Albuterol Sulfate (Iprat-Albut 0.5-3(2.5) mg/3 mL Inhalant Soln) 3 Ml Ampul.neb 3 ML IH TID Levothyroxine (Levothyroxine) 125 Mcg Tablet 125 MCG PO QAM Multivitamin (Multivitamins) 1 Each Capsule 1 EACH PO DAILY Paroxetine (Paroxetine) 20 Mg Tablet 20 MG PO HS Spironolactone (Spironolactone) 25 Mg Tablet 12.5 MG PO DAILY Vit A/Vit C/Vit E/Zinc/Copper (Preservision Areds Tablet) 1 Each Tablet 1 EACH PO BID Warfarin Sodium (Warfarin Sodium) 5 Mg Tablet 5 MG PO MONDAYS TAKE 5 MG MONDAYS AND 2.5 MG ALL OTHER DAYS Warfarin Sodium (Warfarin Sodium) 5 Mg Tablet 2.5 MG PO DAILY EXCEPT MONDAYS TAKE 5 MG MONDAYS AND 2.5 MG ALL OTHER DAYS Scheduled PRN Acetaminophen (Acetaminophen) 500 Mg Tablet 500 MG PO Q6H PRN PRN For Fever oxyCODONE-Acetaminophen 5-325 mg (oxyCODONE-Acetaminophen 5-325 mg) 1 Each Tablet 0.5-1 TAB PO Q6H PRN PRN For Pain General Time Seen by MD: 00:57 Chief Complaint Shortness of breath Hx Obtained From: Patient Arrived By: Ambulance Sudden in Onset?: Yes Onset Occurred: More than a week ago... Symptom Duration: Since onset Location: : None Severity: Current: No pain currently Severity: Maximum: No pain Recent Healthcare: Recent hospitalization Past Medical History Past Medical History Notes: Admit May 02 through 05/06/2016 for chronic respiratory failure, COPD Admitted July 18 through July 21, 2016for acute CHF Past Medical History Severe nonischemic cardiomyopathy Chronic atrial fibrillation on warfarin Severe systolic CHF, (EF of 10-15% on 07/20/2016 echocardiogram, severe global hypokinesis, partially flail tricuspid valve leaflet with severe tricuspid regurgitation) Arthritis 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 Alcohol Use: "Social" Drug Use: Denies drug use Other Social History: Ambulatory Status Independent Review of Systems Constitutional: Denies: Chills, Fever Cardiovascular: Denies: Chest pain Musculoskeletal: Reports: Extremity swelling (Bilateral lower extremities) Complete sys rev & neg: except as marked. Endocrine: Reports: Weight gain Physical Exam Initial Vital Signs Vital Signs (First) Date Time Temp Pulse Resp B/P Pulse Ox O2 Delivery O2 Flow Rate FiO2 08/17/16 00:54 36.5 70 24 132/61 98 Nasal Cannula 6 08/17/16 01:39 30 Initial VS: Reviewed, Vital signs abnormal (patient think tachypneic and dyspneic on supplemental O2) Head / Eyes: Atraumatic, Normocephalic Abdomen / GI: No distention Extremities: Vascular intact, Neuro intact Skin: Warm, Dry, No cyanosis Neurologic: Alert, Oriented, Nonfocal Psychiatric: Mood/affect normal, Behavior normal, Normal thought content General/Constitutional: Awake, Alert, Not toxic appearing Distress / Hydration: Positive: Distress severe Neck: Atraumatic Respiratory / Chest: Atraumatic Resp Distress / Stridor: Positive: Resp distress severe Crackles throughout all lung varma Tachypneic Dyspneic Cardiovascular: Heart rate NL, Regular rhythm, Heart sounds NL Lower Ext Edema: Positive: Bilateral 3+, Pitting Interpretation & Diagnostics Lab Results Interpretation Result Diagram: 08/17/16 0135 08/17/16 0135 Test 08/17/16 01:35 08/17/16 02:10 White Blood Count 7.9th/mm3 (3.8-10.1) Red Blood Count 5.11mil/mm3 (3.90-5.20) Hemoglobin 16.1g/dL (12.0-15.6) Hematocrit 48.7% (35.0-46.0) Mean Corpuscular Volume 95.3fL (81-100) Mean Corpuscular Hemoglobin 31.5pg (27.0-35.0) Mean Corpuscular Hemoglobin Concent 33.1% (32.0-37.0) Red Cell Distribution Width 18.5% (12.3-15.4) Platelet Count 136bil/L (150-400) Neutrophils (%) (Auto) 67.8% (40-74) Lymphocytes (%) (Auto) 22.1% (14-46) Monocytes (%) (Auto) 7.8% (4-12) Eosinophils (%) (Auto) 1.8% (0-5) Basophils (%) (Auto) 0.4% (0-3) Prothrombin Time 41.8sec (8.1-12.5) Prothromb Time International Ratio 3.80ratio Sodium Level 139mEq/L (134-144) Potassium Level 4.6mEq/L (3.5-5.2) Chloride Level 95mEq/L (97-108) Carbon Dioxide Level 25mmol/L (18-29) Blood Urea Nitrogen 26mg/dL (8-27) Creatinine 0.93mg/dL (0.57-1.00) Estimat Glomerular Filtration Rate 81mL/min (>59) Glucose Level 81mg/dL (60-99) Calcium Level 8.9mg/dL (8.5-10.1) Magnesium Level 2.0mg/dL (1.6-2.6) Total Bilirubin 1.4mg/dL (0.0-1.2) Aspartate Amino Transf (AST/SGOT) 32U/L (0-50) Alanine Aminotransferase (ALT/SGPT) 16U/L (0-32) Alkaline Phosphatase 110U/L (25-165) Troponin T 0.010ug/L (0.0-0.011) Pro-B-Type Natriuretic Peptide 27210fu/mL (0-738) Total Protein 6.8g/dL (6.4-8.4) Albumin 3.7g/dL (3.4-5.0) Hold [place] Top Tube Received (Received) Urine Color Dark yellow (YELLOW) Urine Appearance Hazy (CLEAR,HAZY) Urine pH 6.0 (5.0-8.0) Urine Specific [place] 1.015 (1.003-1.035) Urine Protein Negativemg/dL (NEG,TRACE) Urine Glucose (UA) Negativemg/dL (NEGATIVE) Urine Ketones Negativemg/dL (NEGATIVE) Urine Occult Blood Moderate (NEGATIVE) Urine Nitrite Positive (NEGATIVE) Urine Bilirubin Negative (NEGATIVE) Urine Urobilinogen Normalmg/dL (NORMAL) Urine Leukocyte Esterase Small (NEGATIVE) Urine RBC 3-10/hpf (0-2) Urine WBC >50/hpf (0-5) Urine Epithelial Cells Moderate/hpf (NONE-MOD) Urine Crystals None seen (NONE SEEN) Urine Bacteria Many/hpf (NONE-FEW) Urine Hyaline Casts None/lpf (NONE) Urine Granular Casts None seen (NONE SEEN) Urine Waxy Casts None seen (NONE SEEN) Urine Red Blood Cell Casts None seen (NONE SEEN) Urine White Blood Cell Casts None seen (NONE SEEN) Urine Mucus None seen (None Seen) Urine Trichomonas None seen (NONE SEEN) Urine Yeast None (NONE SEEN) Urine Culture Reflexed Indicated Lab Results Interpretation: CBC normal, mildly polycythemic CMP normal Troponin #1 negative BNP just over 17,000, around the same level as prior admission INR super therapeutic UA positive markers of infection ECG Interpretation ECG Interpretation: Ventricular paced rhythm with no interval change Computer over read suggest underlying rhythm may be atrial fibrillation flutter, this is difficult to see or verify Time: 01:09 Interpreted by: ED physician Rhythm / Conduction: Ventricular paced rhythm (rate of 70) X-Ray Chest Interpretation Chest Xray Interpretation: IMPRESSION: CHF Left trace pleural effusion. Similar to previous admission film, possibly slightly worse. Interpretation / Wet Read by: Wet read ED physician Re-Eval/Medical Decision Med Decision/Clinical Course This is an 86-year-old female presents complaining of increasing shortness of breath, leg edema, and weight gain. This delightful patient unfortunately is developed progressive congestive heart failure and was recently admitted several weeks ago for an acute exacerbation, echocardiogram evaluation that time demonstrated an EF dropped only approximately 10% severe global hypokinesis , and with partially flail tricuspid valve leaflet and severe tricuspid regurgitation. This represents a marked worsening of her interval imaging. Patient was discharged on furosemide 20 mg daily, which is been increased to 40 mg about 5 days ago as the patient's gained weight. The indicates approximately 10 pound weight gain over the past 7 days, corresponding with the new leg edema, and increased shortness of breath - and it is not improved with increased dose of furosemide. Patient's normally on about 3-3-1/2 L, and has been increased intermittently to 4 L due to the increasing dyspnea. Patient denies chest pain, fevers, chills or cough. Records also indicate that during the previous admission the patient was full code, but the day long conversation regarding CODE STATUS have been reviewed- and the patient and the indicate that the patient has completed the POLST Form and that she does not wish to be intubated or resuscitated mechanically. From the description she gives me tonight, as they did not bring the formation, she wishes limited interventions. The patient appears dyspneic and uncomfortable in the department with diffuse crackles, and new bilateral leg edema suggestive of worsening congestive heart failure, superimposed on a setting of chronic interstitial chronic lung disease. I offered her option of BiPAP, or pursue options with medical therapy to see if any improvement can be made, but have communicated the grave the situation to patient and . BiPAP is being trialed, the patient is receiving 80 mg of IV Lasix, and a Ramos is being placed. Patient is being admitted for continued management. Patient has tolerated BiPAP well and is much more comfortable on reevaluation. Urine does suggest a possible UTI, so the patient is receiving a dose of ceftriaxone. Case is discussed with the hospitalist. Source of Hx: Old records Re-Evaluation/Progress #1: Time of Eval: 01:13 Re-Evaluation/Progress Note: Discussed code status. Pt states she is limited intervention. Re-Evaluation/Progress #2: Time of Eval: 02:01 Patient Status: Condition improved Re-Evaluation/Progress Note: Pt rechecked. Pt is improved and work of breathing decreased. Consultation : Referral / Consult Name: Arturo Kang MD Call Returned at: 02:26 Supervisor [employer]: Will see patient, Agrees with eval, Agrees with plan, Accepts admit Note: Discussed pt condition, accepts admit. Differential Diagnosis: Positive: Congestive heart failure, Respiratory failure , Negative: Hypertensive emergency, Pneumonia, Pneumothorax, Pulmonary embolism Counseled Regarding: Diagnosis, Lab results Discharge & Departure Impression: Primary Impression: Acute on chronic systolic heart failure Additional Impressions: Atrial fibrillation Atrial fibrillation type: chronic Qualified Code: I48.2 - Chronic atrial fibrillation CHF exacerbation Congestive heart failure type: combined Qualified Code: I50.43 - Acute on chronic combined systolic (congestive) and diastolic (congestive) heart failure Supratherapeutic INR Pulmonary fibrosis UTI (urinary tract infection) Urinary tract infection type: acute cystitis Hematuria presence: without hematuria Qualified Code: N30.00 - Acute cystitis without hematuria Disposition: ADMITTED TO HOSPITAL Discharge Condition All VS Reviewed: Yes Condition: Improved Referrals: Julien Dunn MD (PCP) Crit Care Except Billable Proc Time Spent: 30-74 minutes Services Performed: Patient management by me, Time spent at bedside, Reviewing test results, Reviewing imaging Scribe Attestation Portions of this note were transcribed by Nettie Tristan. I, Dr. Sanchez personally performed the history, physical exam and medical decision-making; I reviewed and confirmed the accuracy of the information in the transcribed note. Signed by: Gilles Buckley, 08/17/16 and 0228 copies to: Julien Dunn MD, Matthew F MD Aug 17, 2016 01:01 NETTIE TRISTAN Aug 17, 2016 01:08
[2016-08-17] MEDS ORDERED: Furosemide 10 mg/mL 10 mL Inj IVPUSH ONE (01:15)
[2016-08-17] MEDS ORDERED: Lidocaine 2% 6mL Topical Jelly TOPICAL ONE (01:15)
[2016-08-17 02:00] LABS: INR 3.8 ratio
[2016-08-17 02:04] LABS: BASOPHILS % (AUTO) 0.4 % (0-3); EOSINOPHILS % (AUTO) 1.8 % (0-5); MONOCYTES % (AUTO) 7.8 % (4-12); Mean Corpuscular Hemoglobin 31.5 pg (27.0-35.0); Mean Corpuscular Volume 95.3 fL (81-100); NEUTROPHILS % (AUTO) 67.8 % (40-74); Platelet Count 136 bil/L (150-400)
[2016-08-17 02:12] LABS: TROPONIN T 0.01 ug/L (0.0-0.011)
[2016-08-17 02:26] LABS: APPEARANCE,URINE HAZY (CLEAR,HAZY); COLOR,URINE DARK YELLOW (YELLOW); OCCULT BLOOD,URINE MODERATE (NEGATIVE); UROBILINOGEN,URINE NORMAL (NORMAL)
[2016-08-17] MEDS ORDERED: Polyethylene Glycol (PEG) 17 Gm Powder PO PRN (02:30)
[2016-08-17] MEDS ORDERED: Ondansetron 2 mg/mL 2 mL Inj IVPUSH PRN (02:30)
[2016-08-17] MEDS ORDERED: Alum-Mag Hydrox-Simeth 30 mL Suspension PO PRN (02:30)
[2016-08-17] MEDS ORDERED: Senna-Docusate 8.6-50 mg Tablet PO PRN (02:30)
[2016-08-17] MEDS ORDERED: cefTRIAXone Inj 2,000 MG in Dextrose 5% Minibag Plus 50 ML IV ONE (02:35)
--- NOTE | 2016-08-17 03:58 | NUR ---
admission patient admitted. currently on oxymask 4 liters. bedside pulse oximetry. on p500 magnolia bed reviewed plan of care. no questions at this time
--- NOTE | 2016-08-17 04:21 | PCM.HPMED ---
Subjective Date of Service Aug 17, 2016 Primary Provider: Admitting Physician: Arturo Kang MD Primary Care Physician: Julien Dunn MD Attending Physician: Arturo Kang MD Admit Status: From the Emergency Department, Full Admit, [facility] Telemetry Chief Complaint: Shortness of breathe History of Present Illness: Ama Odell is a 86 year old female with Chronic systolic heart failure with nonischemic cardiomyopathy, COPD, hypertension, Coronary artery disease, interstitial lung disease with chronic respiratory hypoxia respiratory failure and atrial fibrillation on warfarin who presents to [facility] emergency department via EMS with worsening shortness of breath Onset 3 weeks ago and rapidly progressive and worsening today. She denies fever , diaphoresis, nausea, vomiting, and chest pain. reports that pt has had 10lbs of weight gain within the last week and has bilateral lower extremity swelling despite taking all her medications. Pt is currently on 3.5-4L of home O2. states he has been having to turn her oxygen up to 4L for the past few weeks. She denies any cough, no fever or chills. Associated symptoms includes decreased appetite and weakness. Case discussed with Dr Sanchez, symptoms consistent with heart failure. Lasix given and patient placed on BIPAP which improved her symptoms. Review of Systems: Pertinent positives as noted in HPI. All other systems were reviewed and are negative Allergies Coded Allergies: codeine (Verified Adverse Reaction, Intermediate, Nausea,Vomiting, 08/17/16 ) Home Medications From recent Discharge Summary Carvedilol (Coreg) 12.5 Mg Tablet 12.5 MG PO DAILYWD (Reported) TAKE 6.25 MG IN AM (W/ BREAKFAST) AND 12.5 MG IN PM (W/ DINNER) Carvedilol (Carvedilol) 12.5 Mg Tablet 6.25 MG PO DAILYWM (Reported) TAKE 6.25 MG IN AM (W/ BREAKFAST) AND 12.5 MG IN PM (W/ DINNER) Cyclosporine (Restasis) 1 Each Droperette 1 DROP BOTH_EYES BID (Reported) Furosemide (Lasix) 40 Mg Tablet 40 MG PO QAM (Reported) Furosemide (Furosemide) 20 Mg Tab 20 MG PO DAILY Prescribed by: CARSON MILTON MD Ipratropium/Albuterol Sulfate (Iprat-Albut 0.5-3(2.5) mg/3 mL Inhalant Soln) 3 Ml Ampul.neb 3 ML IH TID (Reported) Levothyroxine (Levothyroxine) 125 Mcg Tablet 125 MCG PO QAM (Reported) Multivitamin (Multivitamins) 1 Each Capsule 1 EACH PO DAILY (Reported) Paroxetine (Paroxetine) 20 Mg Tablet 20 MG PO HS (Reported) Spironolactone (Spironolactone) 25 Mg Tablet 12.5 MG PO DAILY (Reported) Vit A/Vit C/Vit E/Zinc/Copper (Preservision Areds Tablet) 1 Each Tablet 1 EACH PO BID (Reported) Warfarin Sodium (Warfarin Sodium) 5 Mg Tablet 5 MG PO MONDAYS (Reported) TAKE 5 MG MONDAYS AND 2.5 MG ALL OTHER DAYS Warfarin Sodium (Warfarin Sodium) 5 Mg Tablet 2.5 MG PO DAILY EXCEPT MONDAYS ( Reported) TAKE 5 MG MONDAYS AND 2.5 MG ALL OTHER DAYS As needed Acetaminophen (Acetaminophen) 500 Mg Tablet 500 MG PO Q6H PRN PRN For Fever ( Reported) oxyCODONE-Acetaminophen 5-325 mg (oxyCODONE-Acetaminophen 5-325 mg) 1 Each Tablet 0.5-1 TAB PO Q6H PRN PRN For Pain Prescribed by: DIGNA CRAWFORD MD [facility] Severe nonischemic cardiomyopathy. Chronic atrial fibrillation. severe systolic CHF, EF of 25-30% as of July 27 2015 arthritis Cancer Hypertension Depression Thyroid disease Pulmonary fibrosis. Recently diagnosed by Dr Echeverria (Medical Records Library Professor) . Surgical History rib fractures 04/30/2016 right hip surgery Appendectomy Cataract surgery Tonsillectomy Pacemaker insertion Family History Father at age 51 unclear reason Mother at age 87 No history of interstitial lung disease or autoimmune disease Social History Hx Alcohol Use: Yes Hx Substance Use: No Hx Tobacco Use: Yes (20 year history 2 pack per day, quit 40 years ago) Smoking Status: Former Smoker Exam Vital Signs Vital Sign - Last Date Time Temp Pulse Resp B/P Pulse Ox O2 Delivery O2 Flow Rate FiO2 08/17/16 02:20 70 24 93/58 97 BiPAP 08/17/16 01:39 30 08/17/16 00:54 36.5 6 Intake and Output 08/16/16 08/16/16 08/17/16 Cumulative From/Thru 15:00 23:00 07:00 08/17/16 00:54 - 08/17/16 03:29 Output Total 900 ml 900 ml Balance -900 ml -900 ml Output Urine Total 900 ml 900 ml Exam General: Alert, Oriented X3, Cooperative, No acute Distress Eyes: PERRLA, Scleral Anicteric Mouth: Mouth Normal, Mucous Membranes Moist/[place] Neck: Supple, no Thyromegaly, trachea central. Chest & Lungs: Diffuse crackles and mild wheezing throughout lung field Cardiovascular: Normal S1, Normal S2, No Murmurs/Rubs/Gallops, Regular Rate/ Rhythm, (No JVD, no peripheral edema) Pulses: Radial (present and equal), Dorsalis Pedi (present and equal) Abdomen: Soft, Non-tender, Non-distended, Normoactive bowel tones. Musculoskeletal: Unremarkable. Normal range of motion, no swollen or erythematous joints Extremities: No edema, no cyanosis, no clubbing. Skin: No rashes. Warm and dry, no erythematous areas Neurological: Grossly neurologically intact, Normal Speech, Sensation Intact Lymphatic: Lymph nodes Cervical and Axillary not palpable Lab and Diagnostics Labs Laboratory Tests Test 08/17/16 01:35 08/17/16 02:10 White Blood Count 7.9th/mm3 (3.8-10.1) Red Blood Count 5.11mil/mm3 (3.90-5.20) Hemoglobin 16.1g/dL (12.0-15.6) Hematocrit 48.7% (35.0-46.0) Mean Corpuscular Volume 95.3fL (81-100) Mean Corpuscular Hemoglobin 31.5pg (27.0-35.0) Mean Corpuscular Hemoglobin Concent 33.1% (32.0-37.0) Red Cell Distribution Width 18.5% (12.3-15.4) Platelet Count 136bil/L (150-400) Neutrophils (%) (Auto) 67.8% (40-74) Lymphocytes (%) (Auto) 22.1% (14-46) Monocytes (%) (Auto) 7.8% (4-12) Eosinophils (%) (Auto) 1.8% (0-5) Basophils (%) (Auto) 0.4% (0-3) Prothrombin Time 41.8sec (8.1-12.5) Prothromb Time International Ratio 3.80ratio Sodium Level 139mEq/L (134-144) Potassium Level 4.6mEq/L (3.5-5.2) Chloride Level 95mEq/L (97-108) Carbon Dioxide Level 25mmol/L (18-29) Blood Urea Nitrogen 26mg/dL (8-27) Creatinine 0.93mg/dL (0.57-1.00) Estimat Glomerular Filtration Rate 81mL/min (>59) Glucose Level 81mg/dL (60-99) Calcium Level 8.9mg/dL (8.5-10.1) Magnesium Level 2.0mg/dL (1.6-2.6) Total Bilirubin 1.4mg/dL (0.0-1.2) Aspartate Amino Transf (AST/SGOT) 32U/L (0-50) Alanine Aminotransferase (ALT/SGPT) 16U/L (0-32) Alkaline Phosphatase 110U/L (25-165) Troponin T 0.010ug/L (0.0-0.011) Pro-B-Type Natriuretic Peptide 41626fg/mL (0-738) Total Protein 6.8g/dL (6.4-8.4) Albumin 3.7g/dL (3.4-5.0) Hold [place] Top Tube Received (Received) Urine Color Dark yellow (YELLOW) Urine Appearance Hazy (CLEAR,HAZY) Urine pH 6.0 (5.0-8.0) Urine Specific [place] 1.015 (1.003-1.035) Urine Protein Negativemg/dL (NEG,TRACE) Urine Glucose (UA) Negativemg/dL (NEGATIVE) Urine Ketones Negativemg/dL (NEGATIVE) Urine Occult Blood Moderate (NEGATIVE) Urine Nitrite Positive (NEGATIVE) Urine Bilirubin Negative (NEGATIVE) Urine Urobilinogen Normalmg/dL (NORMAL) Urine Leukocyte Esterase Small (NEGATIVE) Urine RBC 3-10/hpf (0-2) Urine WBC >50/hpf (0-5) Urine Epithelial Cells Moderate/hpf (NONE-MOD) Urine Crystals None seen (NONE SEEN) Urine Bacteria Many/hpf (NONE-FEW) Urine Hyaline Casts None/lpf (NONE) Urine Granular Casts None seen (NONE SEEN) Urine Waxy Casts None seen (NONE SEEN) Urine Red Blood Cell Casts None seen (NONE SEEN) Urine White Blood Cell Casts None seen (NONE SEEN) Urine Mucus None seen (None Seen) Urine Trichomonas None seen (NONE SEEN) Urine Yeast None (NONE SEEN) Urine Culture Reflexed Indicated Microbiology 08/17/16 Urine Culture, Received Pending Result Diagram: 08/17/1613408/17/[id number] X-Rays, CTs and MRIs X-RAY CHEST ONE VIEW, PORTABLE 08/17 IMPRESSION: 1. Slightly increased pulmonary edema with a small left pleural effusion. Dictated by: Gabe Zazueta M.D. on 07/18/2016 at 8:59 Approved by: Gabe Zazueta M.D. on 07/18/2016 at 9:02 Assessment & Plan Ama Odell is a 86 year old female with Chronic systolic heart failure with nonischemic cardiomyopathy, COPD, hypertension, Coronary artery disease, interstitial lung disease with chronic respiratory hypoxia respiratory failure and atrial fibrillation on warfarin who presents to [facility] emergency department via EMS with worsening shortness of breath 1. Acute on chronic hypoxia respiratory failure. Present on admission Etiology multifactorial with Acute Congestive heart failure likely to main issue. Patient already taking oxygen at home due to chronic hypoxia from Pulmonary Fibrosis. Other possible causes includes worsening Interstitial lung disease. - continue BIPAP on oxygen supplementation - repeat ABG and adjust setting - patient now wants to be DNR/DNI - Palliative Care consult considered - treat underlying cause (see below) 2. Acute on Chronic systolic Heart failure. Present on admission Ischemic cardiomyopathy with EF 25-30%. Recent admission for exacerbation, Echo showed new changes with ejection fraction is estimated to be 10-15%. LVEF has deteriorated since last exam. There is severe global hypokinesis of the left ventricle. There is a significant dyssynchronous contraction pattern due to the paced rhythm. Severe Tricuspid disease also noted - Lasix 40 mg IV bid, titrate based on symptoms and fluid status - prescribe Lasix on discharge - monitor weight daily 3. Interstitial Lung disease. Chronic Recent diagnosis based on CT results and Pulmonary function test. Work up for autoimmune disease still ongoing to fully evaluate etiology with exposure caused ruled out already - continue Pulmonary rehab - close monitoring with Dr Echeverria at Pulmonology clinic 4. Chronic Obstructive Pulmonary Disease. chronic Less likely this represents an acute exacerbation with no sputum or coughing changes. - hold off on steroids for now - continue DuoNeb PRN 5 Supra therapeutic INR. Present on admission No bleeding noted but levels not as severe as last admission - holding Coumadin tonight - Pharmacy to manage Coumadin dosing 6 Chronic Atrial fibrillation [id number] score 6 with a Stroke risk of about 9.8%/yr. Will resume Coumadin when INR is at appropriate range to avoid any stroke. - monitor on telemetry - continue Carvedilol 12.5 mg bid for rate control - anticoagulations held due to elevated INR 7 Hypothyroidism, Chronic - continue Synthroid 125 mcg daily 8 Depression, Chronic - continue Paroxetine 20 mg daily - Acetaminophen as needed for mild pain/fever/headache - Bowel regimen as needed - Antiemetic as needed Patient admitted under inpatient status with expected length of stay > 2 midnights for severity of present symptoms, complexities of treatment plan and risk for adverse event . Resuscitation Status: DNR/DNI:Do Not Resuscitate/Intubate Arturo Kang MD Aug 17, 2016 03:35 Arturo Kang MD Aug 17, 2016 03:35
[2016-08-17] MEDS ORDERED: oxyCODONE-Acetamin 5-325 mg Tablet PO PRN (06:45)
[2016-08-17] MEDS: Sodium Chloride LOK Flush 10 mL Syringe IVFLUSH SCH ×2 (08:19→16:30)
[2016-08-17] MEDS: Furosemide 10 mg/mL 4 mL Inj IVPUSH SCH ×2 (08:19→20:45)
[2016-08-17] MEDS ORDERED: RESTASIS BOTH_EYES SCH (08:30)
[2016-08-17] MEDS: Albuterol-Ipratropium 3 mL Inhalation Solution NEB SCH ×3 (09:21→20:16)
--- NOTE | 2016-08-17 09:35 | DRSVH ---
PROCEDURE: X-RAY CHEST ONE VIEW, PORTABLE ([id number]) INDICATIONS: SOB TECHNIQUE: One view of the chest was acquired. COMPARISON: [facility], CR, XR CHEST 1VW (PORTABLE), 07/17/2016, 22:59. FINDINGS: Surgical changes and devices: Right chest wall pacemaker and leads appear stable in position. Lungs and pleura: There is mild blunting of the left costophrenic angle compatible with a small pleu ral effusion. There is moderate pulmonary edema which appears similar from the prior study. No pneu mothorax. Mediastinum: Mediastinal contours appear unchanged. Heart size is mildly enlarged. Bones and chest wall: No suspicious bony lesions. Overlying soft tissues appear unremarkable. IMPRESSION: Persistent pulmonary edema and small left basilar pleural fluid collection. Dictated by: Bill Holly [facility] Interpreted: Gaurang Garrison MD on 08/17/2016 at 9:33 Transcribed by: JEAN MARIE on 08/17/2016 at 9:34 Approved by: Gaurang Garrison M.D. on 08/17/2016 at 10:52
--- NOTE | 2016-08-17 10:27 | NUR ---
Social Work Note - Initial Assessment: D/A: See Initial Assessment. The Pt is an 86 y/o that was admitted for CHF, Readmission Risk Score 7. The Pt's PCP is MD Julien Dunn and her primary insurance is Medicare with an AARP supplement, [facility] and no VA benefits. EMR reviewed. SW met with the Pt to explain role and discuss discharge planning, SW telephone number written on white board. The Pt lives independently with her in a one story home in [place]. The Pt has one daughter who lives nearby that assists, as needed. Advanced Directive requested. The Pt continues to drive, has walker and cane, and uses 3.5-4l of O2 through [employer]. The Pt also has a home nebulizer. The Pt was previously opened with [facility] for RN/PT/OT. No SNF history reported. The Pt was recently admitted from 07/18-07/21 for CHF, discharged home with [facility]. The Pt denies any needs at this time, SW to follow if needs arise. P: The Pt is not medically stable for discharge, likely to discharge home with resumed [facility] RN/PT/OT when ready. The Pt denies any needs at this time, SW to follow if needs arise. EAMON Ferrara Irrigation Supervisor Addendum: 08/17/16 at 1034 by LUBA VANCE SS Amended: Links added. Addendum: 08/17/16 at 1352 by NATALI LANG PENELOPE has reviewed underwriting intern note Natali Gorman,EAMON
--- NOTE | 2016-08-17 19:22 | NUR ---
Resp: Pt titrated down to 2 liters on oxymask for SPO2 of 88-92%. Afternoon assessment shows pt to have less work of breathing, increased lung sounds and decreased wheezing and crackles. Pt states that she is breathing much easier.
[2016-08-17] MEDS: PARoxetine 20 mg Tablet PO SCH (20:45)
[2016-08-17] MEDS: RESTASIS BOTH_EYES SCH (20:47)
[2016-08-18] VITALS (11 sets, daily range): BP systolic 92–106; BP diastolic 45–71; PULSE 66–80; RESP 18–28; O2SAT 90–96
[2016-08-18] MEDS: Sodium Chloride LOK Flush 10 mL Syringe IVFLUSH SCH ×4 (01:45→20:24)
[2016-08-18 02:48] LABS: EOSINOPHILS % (AUTO) 1.2 % (0-5); INR 3.95 ratio; MONOCYTES % (AUTO) 7.8 % (4-12); Mean Corpuscular Hemoglobin 31.7 pg (27.0-35.0); Mean Corpuscular Volume 90.8 fL (81-100); Platelet Count 130 bil/L (150-400)
--- NOTE | 2016-08-18 05:05 | NUR ---
Tele/sleep pt has been able to sleep comfortably most of the shift , 2 Liters O2 per Oxy mask, A&O x3 using call light appropriately but sparingly, Ramos catheter draining pale yellow urine to gravity. Denies pain or SOB. Tele: V-paced mid 80's , underlying A-fib. O
--- NOTE | 2016-08-18 05:09 | NUR ---
Admit Admitted to room 2002 , son accompanied her assisted w history though many gaps in history and details . Unsure exactly about POLST , but SonAncelmo states he will bring it in on Wednesday. IV rt arm , Blood pressures only on left arm , BiCarb IV running @ 150 , NS @ TKO, ABX as ordered, 6 L O2 per NC. Pt is weak and withdrawn, unable or unwilling to respond in complete sentences . Denies pain, Ramos Catheter draining scant urine to gravity, was ablt to draw 3 Ml for lab sample, NG tube in to 65 Cm. on intermittent low suction, placement placement checked by auscultation. On soft non-violent restraints to protect lines, otherwise compliant. Telemetry: SR-80's Addendum: 08/18/16 at 2006 by SHAY STORY RN Disregard this note
[2016-08-18] MEDS: Albuterol-Ipratropium 3 mL Inhalation Solution NEB SCH ×3 (07:41→20:37)
[2016-08-18] MEDS: Furosemide 10 mg/mL 4 mL Inj IVPUSH SCH (07:56)
[2016-08-18] MEDS: RESTASIS BOTH_EYES SCH ×2 (08:00→20:24)
[2016-08-18] MEDS ORDERED: 0.9% Sodium Chloride 250 ML ONE (08:02)
[2016-08-18] MEDS: cefTRIAXone Inj 2,000 MG in Dextrose 5% Minibag Plus 50 ML IV SCH (08:11)
--- NOTE | 2016-08-18 14:12 | PCM.PNMED ---
Subjective Date of Service Aug 18, 2016 Subjective Patient is doing much better today. She states her breathing is better and she feels more energetic. She is pleased to see that her lower extremity edema is improving. Exam Vital Signs Vital Sign - Last Date Time Temp Pulse Resp B/P Pulse Ox O2 Delivery O2 Flow Rate FiO2 08/18/16 12:18 36.4 71 18 98/63 90 Nasal Cannula 1.00 08/17/16 01:39 30 Intake and Output 08/17/16 08/17/16 08/18/16 Cumulative From/Thru 15:00 23:00 07:00 08/17/16 00:54 - 08/18/16 06:06 Intake Total 400 ml 300 ml 700 ml Output Total 1900 ml 1200 ml 4900 ml Balance -1500 ml -900 ml -4200 ml Intake Oral 400 ml 300 ml 700 ml Output Urine Total 1900 ml 1200 ml 4900 ml # Bowel Movements 0 0 Exam General: Alert, Oriented X3, Cooperative, No acute Distress Mouth: Mouth Normal, Mucous Membranes Moist/[place] Chest & Lungs: Diffuse crackles and mild wheezing throughout lung field but improved from yesterday Cardiovascular: Normal S1, Normal S2, No Murmurs/Rubs/Gallops, Regular Rate/ Rhythm Abdomen: Soft, Non-tender, Non-distended, Normoactive bowel tones Extremities: Improving edema, no cyanosis, no clubbing. Skin: No rashes. Warm and dry, no erythematous areas IVs and Medications Medications Reviewed: Medications were reviewed in detail Lab and Diagnostics Result Diagram: 08/18/1621808/18/16218 X-Rays, CTs and MRIs X-RAY CHEST ONE VIEW, PORTABLE 08/17 IMPRESSION: 1. Slightly increased pulmonary edema with a small left pleural effusion. Dictated by: Gabe Zazueta M.D. on 07/18/2016 at 8:59 Approved by: Gabe Zazueta M.D. on 07/18/2016 at 9:02 Assessment & Plan Ama Odell is a 86 year old female with Chronic systolic heart failure with nonischemic cardiomyopathy, COPD, hypertension, Coronary artery disease, interstitial lung disease with chronic respiratory hypoxia respiratory failure and atrial fibrillation on warfarin who presents to [facility] emergency department via EMS with worsening shortness of breath Acute on chronic hypoxia respiratory failure. Present on admission. Improving Etiology multifactorial with Acute Congestive heart failure likely to main issue. Patient already taking oxygen at home due to chronic hypoxia from Pulmonary Fibrosis. Other possible causes includes worsening Interstitial lung disease. - patient is improving, responded well to diuresis, on 2 L nasal cannula currently, O2 90%, will wean off oxygen to 1 L or room air if possible - patient now wants to be DNR/DNI, will order Palliative Care consult Acute on Chronic systolic Heart failure. Present on admission Ischemic cardiomyopathy with EF 25-30%. Recent admission for exacerbation, Echo showed new changes with ejection fraction is estimated to be 10-15%. LVEF has deteriorated since last exam. There is severe global hypokinesis of the left ventricle. There is a significant dyssynchronous contraction pattern due to the paced rhythm. Severe Tricuspid disease also noted - decrease Lasix to 40 mg IV once a day - prescribe Lasix on discharge - monitor weight daily Interstitial Lung disease. Chronic Recent diagnosis based on CT results and Pulmonary function test. Work up for autoimmune disease still ongoing to fully evaluate etiology with exposure caused ruled out already - continue Pulmonary rehab - close monitoring with Dr Echeverria at Pulmonology clinic Chronic Obstructive Pulmonary Disease. chronic Less likely this represents an acute exacerbation with no sputum or coughing changes. - hold off on steroids for now - continue DuoNeb PRN Supra therapeutic INR. Present on admission No bleeding noted but levels not as severe as last admission - holding Coumadin tonight - Pharmacy to manage Coumadin dosing Chronic Atrial fibrillation [id number] score 6 with a Stroke risk of about 9.8%/yr. Will resume Coumadin when INR is at appropriate range to avoid any stroke. - monitor on telemetry - continue Carvedilol 12.5 mg bid for rate control - anticoagulations held due to elevated INR Hypothyroidism, Chronic - continue Synthroid 125 mcg daily Depression, Chronic - continue Paroxetine 20 mg daily - Acetaminophen as needed for mild pain/fever/headache - Bowel regimen as needed - Antiemetic as needed Patient admitted under inpatient status with expected length of stay > 2 midnights for severity of present symptoms, complexities of treatment plan and risk for adverse event . Resuscitation Status: DNR/DNI:Do Not Resuscitate/Intubate Attending Statement The patient was seen and examined together with Dr. Martines on 08/18/16 and I agree with the history, exam and plan as outlined in the note above. Eloise Martines DO Aug 18, 2016 14:12 Reta Bridges DO August 27, 2016 18:57
--- NOTE | 2016-08-18 15:29 | NUR ---
Respiratory/SPO2 Pt does not use O2 at baseline, per MD she is to be titrated between 88-92% SPO2. A trial on RA was performed and pt sats decreased to 85-87%. She was then placed on 1L NC and her sats improved to 88-90%. She continues to be diuresed with IV lasix, lung sounds today improved with slight crackles throughout.
[2016-08-18] MEDS: PARoxetine 20 mg Tablet PO SCH (20:24)
[2016-08-19] VITALS (9 sets, daily range): BP systolic 96–117; BP diastolic 44–77; PULSE 61–86; RESP 16–20; O2SAT 87–98
--- NOTE | 2016-08-19 02:42 | NUR ---
Telemetry A&O x3 using call light appropriately , no C/O pain , peripheral pulses easily detected , 1 L O2 per NC, sat mid 90's SBA to toilet.Saline locked . Telemetry , V-Paced , underlying A-Fib.
[2016-08-19 02:47] LABS: Mean Corpuscular Volume 92.8 fL (81-100)
[2016-08-19 03:07] LABS: INR 2.72 ratio
[2016-08-19] MEDS ORDERED: 0.9% Sodium Chloride 0 ML ONE (08:11)
[2016-08-19] MEDS: cefTRIAXone Inj 2,000 MG in Dextrose 5% Minibag Plus 50 ML IV SCH (08:17)
[2016-08-19] MEDS: Sodium Chloride LOK Flush 10 mL Syringe IVFLUSH SCH ×3 (08:22→19:55)
[2016-08-19] MEDS: Furosemide 10 mg/mL 4 mL Inj IVPUSH SCH ×2 (08:29→16:55)
[2016-08-19] MEDS: RESTASIS BOTH_EYES SCH ×2 (08:30→19:55)
[2016-08-19] MEDS: Albuterol-Ipratropium 3 mL Inhalation Solution NEB SCH ×3 (09:59→20:29)
--- NOTE | 2016-08-19 11:41 | NUR ---
Evaluation completed. Please go to "Notes" then click on "Assessments and Notes" (bottom left corner of screen). Then select appropriate discipline tab on top of screen.
--- NOTE | 2016-08-19 18:18 | PCM.PNMED ---
Subjective Date of Service Aug 19, 2016 Subjective Patient is feeling much better. She reports her breathing is better and lower extremities edema has improved a lot. She is tolerating diet and voiding without difficulties. She is eager to work with physical therapy today. Exam Vital Signs Vital Sign - Last Date Time Temp Pulse Resp B/P Pulse Ox O2 Delivery O2 Flow Rate FiO2 08/19/16 17:45 36.6 70 16 114/77 87 Room Air 08/19/16 15:32 1.00 08/17/16 01:39 30 Intake and Output 08/18/16 08/18/16 08/19/16 Cumulative From/Thru 15:00 23:00 07:00 08/17/16 00:54 - 08/19/16 06:22 Intake Total 425 ml 400 ml 1525 ml Output Total 1800 ml 200 ml 6900 ml Balance -1375 ml 200 ml -5375 ml Intake Oral 350 ml 400 ml 1450 ml IV Total 75 ml 75 ml Output Urine Total 1800 ml 200 ml 6900 ml # Bowel Movements 0 0 Exam General: Alert, Oriented X3, Cooperative, No acute Distress Mouth: Mouth Normal, Mucous Membranes Moist/[place] Chest & Lungs: Mild bibasilar crackles but improved from yesterday Cardiovascular: Normal S1, Normal S2, No Murmurs/Rubs/Gallops, Regular Rate/ Rhythm Abdomen: Soft, Non-tender, Non-distended, Normoactive bowel tones Extremities: Improving edema, no cyanosis, no clubbing. Skin: No rashes. Warm and dry, no erythematous areas IVs and Medications Medications Reviewed: Medications were reviewed in detail Lab and Diagnostics Result Diagram: 08/19/16 0234 08/19/16 0234 X-Rays, CTs and MRIs X-RAY CHEST ONE VIEW, PORTABLE 08/17 IMPRESSION: 1. Slightly increased pulmonary edema with a small left pleural effusion. Dictated by: Gabe Zazueta M.D. on 07/18/2016 at 8:59 Approved by: Gabe Zazueta M.D. on 07/18/2016 at 9:02 Assessment & Plan Ama Odell is a 86 year old female with Chronic systolic heart failure with nonischemic cardiomyopathy, COPD, hypertension, Coronary artery disease, interstitial lung disease with chronic respiratory hypoxia respiratory failure and atrial fibrillation on warfarin who presents to [facility] emergency department via EMS with worsening shortness of breath Acute on chronic hypoxia respiratory failure. Present on admission. Improving Etiology multifactorial with Acute Congestive heart failure likely to main issue. Patient already taking oxygen at home due to chronic hypoxia from Pulmonary Fibrosis. Other possible causes includes worsening Interstitial lung disease. - Patient is improving, responded well to diuresis, on 1 L nasal cannula currently, O2 90% - Patient now wants to be DNR/DNI, will order Palliative Care consult Acute on Chronic systolic Heart failure. Present on admission Ischemic cardiomyopathy with EF 25-30%. Recent admission for exacerbation, Echo showed new changes with ejection fraction is estimated to be 10-15%. LVEF has deteriorated since last exam. There is severe global hypokinesis of the left ventricle. There is a significant dyssynchronous contraction pattern due to the paced rhythm. Severe Tricuspid disease also noted - Continue Lasix 40 mg intravenously today - Increase Lasix to 40 mg twice a day on discharge - Continue to monitor weight daily Interstitial Lung disease. Chronic Recent diagnosis based on CT results and Pulmonary function test. Work up for autoimmune disease still ongoing to fully evaluate etiology with exposure caused ruled out already - Continue Pulmonary rehab - Close monitoring with Dr Echeverria at Pulmonology clinic Chronic Obstructive Pulmonary Disease. chronic Less likely this represents an acute exacerbation with no sputum or coughing changes. - Hold off on steroids for now - Continue DuoNeb as needed Supra therapeutic INR. Present on admission No bleeding noted but levels not as severe as last admission - Pharmacy to manage Coumadin dosing Chronic Atrial fibrillation [id number] score 6 with a Stroke risk of about 9.8%/yr. Will resume Coumadin when INR is at appropriate range to avoid any stroke. - Monitor on telemetry - Continue Carvedilol 12.5 mg twice a day for rate control - Anticoagulations held due to elevated INR Hypothyroidism, Chronic - Continue Synthroid 125 mcg daily Depression, Chronic - Continue Paroxetine 20 mg daily - Acetaminophen as needed for mild pain/fever/headache - Bowel regimen as needed - Antiemetic as needed Patient admitted under inpatient status with expected length of stay > 2 midnights for severity of present symptoms, complexities of treatment plan and risk for adverse event Disposition: Home tomorrow Pain Evaluation: Adequate Pain Control Resuscitation Status: DNR/DNI:Do Not Resuscitate/Intubate Attending Statement The patient was seen and examined together with Dr. Martines on 08/19/2016 and I agree with the history, exam and plan as outlined in the note above. . Eloise Martines DO Aug 19, 2016 18:18 Marc Aburto MD Aug 22, 2016 07:27
--- NOTE | 2016-08-19 18:59 | NUR ---
Respiratory status/diuresing Pt has been satting mid to low 90s on 1L NC. Around 1800 we removed the 1L to attempt to wean. Sats remained low 90s to upper 80s for around 45 minutes then began dropping to the low 80s. Asymptomatic. 1L NC replaced. Education provided to and patient. IVP Lasix initially held this AM for BP 97/68 per MD order. BP around 1700 was 111/63 so IV lasix 40mg was given at that time per MD order. Lungs have fine crackles bilaterally throughout. Pt ate lunch and dinner out at her chair and has been ambulating to the BSC with assistance. Some dizziness noted.
[2016-08-19] MEDS: PARoxetine 20 mg Tablet PO SCH (19:55)
[2016-08-20] VITALS (8 sets, daily range): BP systolic 99–115; BP diastolic 61–79; PULSE 66–78; RESP 16–22; O2SAT 85–96
[2016-08-20 02:59] LABS: Mean Corpuscular Hemoglobin 31.8 pg (27.0-35.0); Mean Corpuscular Volume 93.3 fL (81-100)
[2016-08-20 03:14] LABS: INR 2.15 ratio
--- NOTE | 2016-08-20 05:52 | NUR ---
Mobility Pt has not been OOB this shift. Used commode at 1830. Moderate intake of fluid with medications. No concerns voiced.
[2016-08-20] MEDS: Albuterol-Ipratropium 3 mL Inhalation Solution NEB SCH ×3 (08:09→20:31)
[2016-08-20] MEDS: cefTRIAXone Inj 2,000 MG in Dextrose 5% Minibag Plus 50 ML IV SCH (08:35)
[2016-08-20] MEDS: RESTASIS BOTH_EYES SCH ×2 (08:36→20:20)
[2016-08-20] MEDS: Sodium Chloride LOK Flush 10 mL Syringe IVFLUSH SCH ×3 (08:36→20:19)
--- NOTE | 2016-08-20 09:35 | PCM.PHAPRO ---
Progress Shortness of breathe WARFARIN Indication: Afib Home dose: 2.5mg/d x 5mg on Mon Recent dosing: Aug 18-Aug 19-Aug 20-Aug 21-Aug 22-Aug 23-Jul 25-August INR 3.8 3.95 2.72 2.15 Warf Dose HOLD HOLD 1MG 2.5MG a/ INR decreasing rapidly with soft dosing - hepatic perfusion likely returned to her compensated baseline p/ Resume home dosing and follow. Xavier Siddiqi Pharm D Aug 20, 2016 09:35
[2016-08-20] MEDS ORDERED: FUR20 PO (14:26)
--- NOTE | 2016-08-20 14:26 | PCM.DIMED ---
Eloise Martines DO 08/20/16 1426: Discharge Instructions Date of Service Aug 21, 2016 Dates of Hospitalization Aug 17, 2016 at 02:38 Discharge Diagnosis Discharge Diagnosis Acute on chronic hypoxia respiratory failure. Present on admission. Improved Acute on Chronic systolic Heart failure. Improved Interstitial Lung disease. Chronic Chronic Obstructive Pulmonary Disease. Chronic Supra therapeutic INR. Present on admission. Improved Chronic Atrial fibrillation Hypothyroidism. Chronic Depression. Chronic Medication Instructions 1. Please increase furosemide to 60 mg orally a day: 40 mg in the morning and 20 mg in the afternoon 2. Continue taking your other home medications as prescribed Diet Heart Healthy Activity Home Health Phyical Therapy, Other (Home health nursing) Call your provider Fever or Chills, Shortness of breath, Bleeding, Chest pain, Vomitting, Excessive diarrhea, Weakness (unilateral) Patient Instructions Follow-up Provider: Julien Dunn MD Follow-up with PCP in: 1 week (PATIENT NEEDS BMP WITHIN 24-48 HOURS) Additional Information Please follow up with Dr. Echeverria at the pulmonology clinic as needed. Marc Aburto MD 08/22/16 0728: Discharge Instructions Attending's Statement The patient was seen and examined together with Dr. Martines next few 08/21/2016 on [Date] and I agree with the history, exam and plan as outlined in the note above. . Eloise Martines DO Aug 20, 2016 14:26 Marc Aburto MD Aug 22, 2016 07:28
--- NOTE | 2016-08-20 14:31 | NUR ---
Social Work: Readiness for Discharge/Discharge D: Pt discussed in am rounds. Pt is medically stable for discharge home. INFORMATION SERVICES TECH met with pt at bedside to confirm discharge plan. Pt states she is currently open for services with [facility] for RN, PT, OT. INFORMATION SERVICES TECH confirmed this with Blu Valerio with [facility]. Access provided. He is aware of the pt's pending discharge. Pt has been ambulating I during admission and has been cleared by PT to safely discharge home. Pt expresses no concerns about discharge home. Family will transport. A: Pt who is I at baseline. P: Anticipate pt to discharge home with resumed [facility] for RN, PT, OT. Family to transport. EAMON Dooley
[2016-08-20] MEDS ORDERED: Furosemide 10 mg/mL 2 mL Inj IVPUSH ONE (17:40)
--- NOTE | 2016-08-20 18:45 | NUR ---
Output/Pending discharge No reports of n/v/d/c or abdominal pain. Batista DC'd at approx 1200 (100 yielded from batista). Patient bladder scanned at 1545 showed 150 mls in bladder -- patient rescanned at 1730, shows less than 160mls. Patient has discharge orders, per MD, patient must void prior to discharge. Administered 20mg IV push lasix once per MD orders at approx 1800. MD and family consulted, per family -- and daughter state that if patient has not voided by 2100, she will stay one more night to monitor. Discharge can stay active until that time, if no voiding before 2100, NOC RN to contact hospitalist and cancel DC order. Patient denies urge to void, burning/discomfort.
--- NOTE | 2016-08-20 19:10 | PCM.DC.MED ---
Discharge Summary Date of Service Aug 20, 2016 Dates of Hospitalization Date of Hospital Admission Aug 17, 2016 at 02:38 Date of Discharge: Aug 21, 2016 Providers: Admitting Physician: Arturo Kang MD Primary Care Physician: Julien Dunn MD Attending Physician: Arturo Kang MD Diagnosis at Time of Discharge Diagnosis at Time of Discharge Acute on chronic hypoxia respiratory failure. Present on admission. Improved Acute on Chronic systolic Heart failure. Improved Interstitial Lung disease. Chronic Chronic Obstructive Pulmonary Disease. Chronic Supra therapeutic INR. Present on admission. Improved Chronic Atrial fibrillation Hypothyroidism. Chronic Depression. Chronic Procedures XRay, CTs & MRIs X-RAY CHEST ONE VIEW, PORTABLE 08/17 IMPRESSION: 1. Slightly increased pulmonary edema with a small left pleural effusion. Dictated by: Gabe Zazueta M.D. on 07/18/2016 at 8:59 Approved by: Gabe Zazueta M.D. on 07/18/2016 at 9:02 Brief History Per Admitting Physician: Arturo Kang MD: History of Present Illness: Ama Odell is a 86 year old female with Chronic systolic heart failure with nonischemic cardiomyopathy, COPD, hypertension, Coronary artery disease, interstitial lung disease with chronic respiratory hypoxia respiratory failure and atrial fibrillation on warfarin who presents to [facility] emergency department via EMS with worsening shortness of breath Onset 3 weeks ago and rapidly progressive and worsening today. She denies fever , diaphoresis, nausea, vomiting, and chest pain. reports that pt has had 10lbs of weight gain within the last week and has bilateral lower extremity swelling despite taking all her medications. Pt is currently on 3.5-4L of home O2. states he has been having to turn her oxygen up to 4L for the past few weeks. She denies any cough, no fever or chills. Associated symptoms includes decreased appetite and weakness. Case discussed with Dr Sanchez, symptoms consistent with heart failure. Lasix given and patient placed on BIPAP which improved her symptoms. Hospital Course Ama Odell is a 86 year old female with Chronic systolic heart failure with nonischemic cardiomyopathy, COPD, hypertension, Coronary artery disease, interstitial lung disease with chronic respiratory hypoxia respiratory failure and atrial fibrillation on warfarin who presents to [facility] emergency department via EMS with worsening shortness of breath. Acute on chronic hypoxia respiratory failure. Present on admission. Improved Etiology multifactorial with Acute Congestive heart failure likely to main issue. Patient already taking oxygen at home due to chronic hypoxia from Pulmonary Fibrosis. Other possible causes includes worsening Interstitial lung disease. - Patient has improved, responded well to diuresis, on 1 L nasal cannula currently, O2 90% Acute on Chronic systolic Heart failure. Present on admission. Improved Ischemic cardiomyopathy with EF 25-30%. Recent admission for exacerbation, Echo showed new changes with ejection fraction is estimated to be 10-15%. LVEF has deteriorated since last exam. There is severe global hypokinesis of the left ventricle. There is a significant dyssynchronous contraction pattern due to the paced rhythm. Severe Tricuspid disease also noted - Continued Lasix 40 mg intravenously - Discharged with increased dose of oral Lasix to 60 mg per day: 40 mg in the morning and 20 mg in the afternoon Interstitial Lung disease. Chronic Recent diagnosis based on CT results and Pulmonary function test. Work up for autoimmune disease still ongoing to fully evaluate etiology with exposure caused ruled out already - Continued Pulmonary rehab - Recommended closed monitoring with Dr Echeverria at Pulmonology clinic Chronic Obstructive Pulmonary Disease. Chronic Less likely this represents an acute exacerbation with no sputum or coughing changes. - Continued DuoNeb as needed Supra therapeutic INR. Present on admission No bleeding noted but levels not as severe as last admission - Pharmacy managed Coumadin dosing - Discharged with home warfarin dose Chronic Atrial fibrillation [id number] score 6 with a Stroke risk of about 9.8%/yr. - Monitored on telemetry - Continued carvedilol 12.5 mg twice a day for rate control - Anticoagulations was held due to elevated INR Hypothyroidism. Chronic - Continued synthroid 125 mcg daily Depression, Chronic - Continued paroxetine 20 mg daily - Acetaminophen as needed for mild pain/fever/headache - Bowel regimen as needed - Antiemetic as needed Disposition: Patient was discharged home in a stable condition. Exam Vital Signs (Last) Date Time Temp Pulse Resp B/P Pulse Ox O2 Delivery O2 Flow Rate FiO2 08/20/16 16:40 68 22 96 Nasal Cannula 3.50 08/20/16 16:35 36.4 104/68 08/17/16 01:39 30 Exam General: Alert, Oriented X3, Cooperative, No acute Distress Mouth: Mouth Normal, Mucous Membranes Moist/[place] Chest & Lungs: Mild bibasilar crackles but improved from yesterday Cardiovascular: Normal S1, Normal S2, No Murmurs/Rubs/Gallops, Regular Rate/ Rhythm Abdomen: Soft, Non-tender, Non-distended, Normoactive bowel tones Extremities: Improving edema, no cyanosis, no clubbing. Skin: No rashes. Warm and dry, no erythematous areas Test 08/17/16 01:35 08/17/16 02:10 08/18/16 02:19 08/20/16 02:32 Magnesium Level 2.0mg/dL (1.6-2.6) Troponin T 0.010ug/L (0.0-0.011) Pro-B-Type Natriuretic Peptide 06134zk/mL (0-738) Hold [place] Top Tube Received (Received) Urine Color Dark yellow (YELLOW) Urine Appearance Hazy (CLEAR,HAZY) Urine pH 6.0 (5.0-8.0) Urine Specific [place] 1.015 (1.003-1.035) Urine Protein Negativemg/dL (NEG,TRACE) Urine Glucose (UA) Negativemg/dL (NEGATIVE) Urine Ketones Negativemg/dL (NEGATIVE) Urine Occult Blood Moderate (NEGATIVE) Urine Nitrite Positive (NEGATIVE) Urine Bilirubin Negative (NEGATIVE) Urine Urobilinogen Normalmg/dL (NORMAL) Urine Leukocyte Esterase Small (NEGATIVE) Urine RBC 3-10/hpf (0-2) Urine WBC >50/hpf (0-5) Urine Epithelial Cells Moderate/hpf (NONE-MOD) Urine Crystals None seen (NONE SEEN) Urine Bacteria Many/hpf (NONE-FEW) Urine Hyaline Casts None/lpf (NONE) Urine Granular Casts None seen (NONE SEEN) Urine Waxy Casts None seen (NONE SEEN) Urine Red Blood Cell Casts None seen (NONE SEEN) Urine White Blood Cell Casts None seen (NONE SEEN) Urine Mucus None seen (None Seen) Urine Trichomonas None seen (NONE SEEN) Urine Yeast None (NONE SEEN) Urine Culture Reflexed Indicated Neutrophils (%) (Auto) 65.0% (40-74) Lymphocytes (%) (Auto) 24.4% (14-46) Monocytes (%) (Auto) 7.8% (4-12) Eosinophils (%) (Auto) 1.2% (0-5) Basophils (%) (Auto) 1.0% (0-3) Total Bilirubin 1.2mg/dL (0.0-1.2) Aspartate Amino Transf (AST/SGOT) 24U/L (0-50) Alanine Aminotransferase (ALT/SGPT) 11U/L (0-32) Alkaline Phosphatase 89U/L (25-165) Total Protein 5.9g/dL (6.4-8.4) Albumin 3.4g/dL (3.4-5.0) White Blood Count 7.8th/mm3 (3.8-10.1) Red Blood Count 4.65mil/mm3 (3.90-5.20) Hemoglobin 14.8g/dL (12.0-15.6) Hematocrit 43.4% (35.0-46.0) Mean Corpuscular Volume 93.3fL (81-100) Mean Corpuscular Hemoglobin 31.8pg (27.0-35.0) Mean Corpuscular Hemoglobin Concent 34.1% (32.0-37.0) Red Cell Distribution Width 18.2% (12.3-15.4) Platelet Count 121bil/L (150-400) Prothrombin Time 23.4sec (8.1-12.5) Prothromb Time International Ratio 2.15ratio Sodium Level 134mEq/L (134-144) Potassium Level 3.9mEq/L (3.5-5.2) Chloride Level 91mEq/L (97-108) Carbon Dioxide Level 24mmol/L (18-29) Blood Urea Nitrogen 24mg/dL (8-27) Creatinine 1.06mg/dL (0.57-1.00) Estimat Glomerular Filtration Rate 70mL/min (>59) Glucose Level 91mg/dL (60-99) Calcium Level 9.1mg/dL (8.5-10.1) Discharge Medications Discharge Medications Carvedilol (Carvedilol) 12.5 Mg Tablet 6.25 MG PO DAILYWM (Reported) TAKE 6.25 MG IN AM (W/ BREAKFAST) AND 12.5 MG IN PM (W/ DINNER) Cyclosporine (Restasis) 1 Each Droperette 1 DROP BOTH_EYES BID (Reported) Furosemide (Furosemide) 20 Mg Tab 60 MG PO DAILY Prescribed by: AJITH MILTON DO Ipratropium/Albuterol Sulfate (Iprat-Albut 0.5-3(2.5) mg/3 mL Inhalant Soln) 3 Ml Ampul.neb 3 ML IH TID (Reported) Levothyroxine (Levothyroxine) 125 Mcg Tablet 125 MCG PO QAM (Reported) Multivitamin (Multivitamins) 1 Each Capsule 1 EACH PO DAILY (Reported) Paroxetine (Paroxetine) 20 Mg Tablet 20 MG PO HS (Reported) Spironolactone (Spironolactone) 25 Mg Tablet 12.5 MG PO DAILY (Reported) Vit A/Vit C/Vit E/Zinc/Copper (Preservision Areds Tablet) 1 Each Tablet 1 EACH PO BID (Reported) Warfarin Sodium (Warfarin Sodium) 5 Mg Tablet 5 MG PO MONDAYS (Reported) TAKE 5 MG MONDAYS AND 2.5 MG ALL OTHER DAYS Warfarin Sodium (Warfarin Sodium) 5 Mg Tablet 2.5 MG PO DAILY EXCEPT MONDAYS ( Reported) TAKE 5 MG MONDAYS AND 2.5 MG ALL OTHER DAYS As needed Acetaminophen (Acetaminophen) 500 Mg Tablet 500 MG PO Q6H PRN PRN For Fever ( Reported) oxyCODONE-Acetaminophen 5-325 mg (oxyCODONE-Acetaminophen 5-325 mg) 1 Each Tablet 0.5-1 TAB PO Q6H PRN PRN For Pain Prescribed by: DIGNA CRAWFORD MD Additional med instructions 1. Please increase furosemide to 60 mg orally a day: 40 mg in the morning and 20 mg in the afternoon 2. Continue taking your other home medications as prescribed Followup Plan Discharge Diet: Heart Healthy Discharge Activity: Home Health Phyical Therapy Follow-up Provider: Julien Dunn MD Follow-up with PCP in: 1 week (PATIENT NEEDS BMP IN 1 WEEK) Time spent Greater than 30 minutes was spent in preparation of discharge with greater than 50% of that time dedicated to patient counseling and coordination of care. . Attending Statement The patient was seen and examined together with Dr. Milton on 08/21/2016 and I agree with the history, exam and plan as outlined in the note above. . copies to: Julien Dunn MD, Oksana S DO Aug 20, 2016 19:09 Marc Aburto MD Aug 22, 2016 07:28
[2016-08-20] MEDS: PARoxetine 20 mg Tablet PO SCH (20:19)
[2016-08-20] MEDS ORDERED: diphenhydrAMINE-Zinc 2%-0.1% 30 Gm Cream TOPICAL PRN (21:30)
[2016-08-21 03:08] VITALS: BP 107/76; PULSE 69; RESP 20; O2SAT 96
--- NOTE | 2016-08-21 04:50 | NUR ---
Output Pt unable to urinate by 2100 despite attempt at BSC; bladder scan revealed approx. 300mls. MD notified. Pt resting throughout shift, able to void approx. 200mls at 0300. VSS, no telemetry, pt able to rest throughout shift. Rash to back per assessment; pt reports itchy - paged, orders obtained and administered for Benadryl cream.
[2016-08-21 05:20] LABS: INR 1.66 ratio
[2016-08-21] MEDS: Albuterol-Ipratropium 3 mL Inhalation Solution NEB SCH (08:30)
[2016-08-21 09:21] VITALS: BP 117/69; PULSE 80; RESP 24; O2SAT 95
[2016-08-21] MEDS: Furosemide 10 mg/mL 4 mL Inj IVPUSH SCH (09:23)
[2016-08-21] MEDS: RESTASIS BOTH_EYES SCH (09:24)
[2016-08-21] MEDS: Sodium Chloride LOK Flush 10 mL Syringe IVFLUSH SCH (09:24)
--- NOTE | 2016-08-21 09:59 | PCM.PHAPRO ---
Progress Shortness of breathe WARFARIN Indication: Afib Home dose: 2.5mg/d x 5mg on Mon Recent dosing: Date Aug 18-Aug 19-Aug 20-Aug 21-Aug 22-Aug 23-Jul 25-August INR 3.8 3.95 2.72 2.15 1.66 Warf Dose HOLD HOLD 1MG 2.5MG 5mg x1 a/ Surprising INR drop with home dose. Perhaps delayed effect of holds p/ Give once weekly 5mg dose today & follow /gsf Xavier Siddiqi S Pharm D Aug 21, 2016 09:59
--- NOTE | 2016-08-21 10:17 | NUR ---
Social Work: Discharge D: Pt discussed in am rounds with . Pt was held overnight but is now medically stable for discharge. Pt requires a BMP Lab draw within 24 hours of discharge from her company. OUTPATIENT ADMITTING CLERK spoke with Blu Valerio with [facility] . He states that they can have an RN out to see the pt tomorrow. He is requesting resumption of care orders also include RN as they only indicate PT at this time. OUTPATIENT ADMITTING CLERK spoke with Resident MD who amended orders to include the lab draw and need for home RN care. Debt Recovery Officer is scheduling the pt's follow up PCP appointment which will be on pts discharge instructions. OUTPATIENT ADMITTING CLERK met with pt and spouse at bedside to inform them that [facility] will call to schedule a visit for tomorrow. They agree with this plan and have no other concerns or needs at this time. A: Pt who is I a baseline. P: Pt to discharge home with resumed [facility] for RN, PT and home 02. Pt's spouse to transport. EAMON Dooley
--- NOTE | 2016-08-21 10:40 | NUR ---
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 IV DC'd intact, no tele to remove, all personal belongings with . Renewed prescription of Lasix discussed multiple times with both and patient. Patient will now take 40mg PO during the AM (given IV prior to discharge) and 20mg PO in the PM -- both patient and verbalized understanding. All other medications to be continued per home dose, next due times written out and discussed with patient and -- both verbalized understanding. Follow up with Dr. Dunn on August 28 discussed, pt reminded that she needs blood work drawn at this appointment.
--- NOTE | 2016-08-22 11:52 | PCM.PNMED ---
Subjective Date of Service Aug 20, 2016 Subjective Patient is feeling much better. She reports her breathing is better and lower extremities edema has improved a lot. She is tolerating diet and voiding without difficulties. She is hoping to be discharged soon. Note: The plan was to discharge patient today, but due to not being to urinate after batista removal, patient had to stay one more night. Exam Vital Signs Vital Sign - Last Date Time Temp Pulse Resp B/P Pulse Ox O2 Delivery O2 Flow Rate FiO2 08/21/16 09:21 36.7 80 24 117/69 95 Nasal Cannula 3.50 08/17/16 01:39 30 Intake and Output 08/21/16 08/21/16 08/22/16 Cumulative From/Thru 15:00 23:00 07:00 08/17/16 00:54 - 08/21/16 05:22 Intake Total 3685 ml Output Total 9550 ml Balance -5865 ml Intake Oral 3530 ml IV Total 155 ml Output Urine Total 9550 ml # Bowel Movements 0 Exam General: Alert, Oriented X3, Cooperative, No acute Distress Mouth: Mouth Normal, Mucous Membranes Moist/[place] Chest & Lungs: Mild bibasilar crackles but improved from yesterday Cardiovascular: Normal S1, Normal S2, No Murmurs/Rubs/Gallops, Regular Rate/ Rhythm Abdomen: Soft, Non-tender, Non-distended, Normoactive bowel tones Extremities: Improving edema, no cyanosis, no clubbing. Skin: No rashes. Warm and dry, no erythematous areas Lab and Diagnostics Result Diagram: 08/20/16 0232 08/20/16 0232 X-Rays, CTs and MRIs X-RAY CHEST ONE VIEW, PORTABLE 08/17 IMPRESSION: 1. Slightly increased pulmonary edema with a small left pleural effusion. Dictated by: Gabe Zazueta M.D. on 07/18/2016 at 8:59 Approved by: Gabe Zazueta M.D. on 07/18/2016 at 9:02 Assessment & Plan Ama Odell is a 86 year old female with Chronic systolic heart failure with nonischemic cardiomyopathy, COPD, hypertension, Coronary artery disease, interstitial lung disease with chronic respiratory hypoxia respiratory failure and atrial fibrillation on warfarin who presents to [facility] emergency department via EMS with worsening shortness of breath. Acute on chronic hypoxia respiratory failure. Present on admission. Improved Etiology multifactorial with Acute Congestive heart failure likely to main issue. Patient already taking oxygen at home due to chronic hypoxia from Pulmonary Fibrosis. Other possible causes includes worsening Interstitial lung disease. - Patient has improved, responded well to diuresis, on 1 L nasal cannula currently, O2 90% Acute on Chronic systolic Heart failure. Present on admission. Improved Ischemic cardiomyopathy with EF 25-30%. Recent admission for exacerbation, Echo showed new changes with ejection fraction is estimated to be 10-15%. LVEF has deteriorated since last exam. There is severe global hypokinesis of the left ventricle. There is a significant dyssynchronous contraction pattern due to the paced rhythm. Severe Tricuspid disease also noted - Continued Lasix 40 mg intravenously - Discharged with increased dose of oral Lasix to 60 mg per day: 40 mg in the morning and 20 mg in the afternoon Interstitial Lung disease. Chronic Recent diagnosis based on CT results and Pulmonary function test. Work up for autoimmune disease still ongoing to fully evaluate etiology with exposure caused ruled out already - Continued Pulmonary rehab - Recommended closed monitoring with Dr Echeverria at Pulmonology clinic Chronic Obstructive Pulmonary Disease. Chronic Less likely this represents an acute exacerbation with no sputum or coughing changes. - Continued DuoNeb as needed Supra therapeutic INR. Present on admission No bleeding noted but levels not as severe as last admission - Pharmacy managed Coumadin dosing - Discharged with home warfarin dose Chronic Atrial fibrillation [id number] score 6 with a Stroke risk of about 9.8%/yr. - Monitored on telemetry - Continued carvedilol 12.5 mg twice a day for rate control - Anticoagulations was held due to elevated INR Hypothyroidism. Chronic - Continued synthroid 125 mcg daily Depression, Chronic - Continued paroxetine 20 mg daily - Acetaminophen as needed for mild pain/fever/headache - Bowel regimen as needed - Antiemetic as needed Disposition: Patient was supposed to be discharged on 08/20/16 but had to stay another night due to inability to urinate after batista removal. Patient was discharged home in a stable condition on 08/21/16. Pain Evaluation: Adequate Pain Control VTE Mechanical Devices: Intermittant Pneumatic CD Resuscitation Status: DNR/DNI:Do Not Resuscitate/Intubate Attending Statement The patient was seen and examined together with Dr. Martines on 08/20/2016 and I agree with the history, exam and plan as outlined in the note above. . Eloise Martines DO Aug 22, 2016 11:52 Marc Aburto MD Aug 23, 2016 08:35
--- NOTE | 2016-08-24 14:53 | NUR ---
Follow up phone for CHF patients Date:08/24/16 Time:3058 Information Discussed: Reviewed medications. Reports she is taking them as prescribed. Reports her weight is down and she is keeping a daily record. Also, reports following her sodium intake. Patient has an appointment with Dr. Dunn , August 28. Questions patient had: Denies any questions.
== END 2016-08-21 10:32 | disposition home health service (06) | DRG 291 ==
LOC: EDUNIT# 00:45 → SED 00:45 → EDBD 00:45 → PCC 02:38
PROVIDERS: ADMIT Hospitalist; ATTEND Hospitalist
DX: I50.23 Acute on chronic systolic (congestive) heart failure (principal); J96.21 Acute and chronic respiratory failure with hypoxia; J44.9 Chronic obstructive pulmonary disease, unspecified; I48.2 Chronic atrial fibrillation; E03.9 Hypothyroidism, unspecified; F32.9 Major depressive disorder, single episode, unspecified; Z99.81 Dependence on supplemental oxygen; Z79.01 Long term (current) use of anticoagulants; I10 Essential (primary) hypertension; Z87.891 Personal history of nicotine dependence; J84.10 Pulmonary fibrosis, unspecified

== ENCOUNTER 2016-09-25 14:37 | Inpatient (IN) | payer MEDICARE ==
[~2016-09-25] VITALS: Ht 170.2 cm; Wt 55.6 kg
[2016-09-25 14:47] VITALS: BP 123/69; PULSE 70; RESP 19; O2SAT 84
--- NOTE | 2016-09-25 15:07 | ED.REPORT ---
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 Pt c/o of shoulder pain and hip pain on the right side as a result of her fall. She was walking across the room to go to the kitchen and she had been feeling dizzy and lightheaded. She also admits to a spinning sensation. Her family found her on the ground alert and responsive. Pt has been feeling lightheaded for the past few days. Pt denies change in edema, chest pain, syncope, palpitation, dyspnea, nausea, numbness, weakness, and fever. She reports that she has been eating and drinking normally. She denies injury to anything else, and did not hit her head. Before the fall, she had also been experiencing R hip pain because of a history of a broken femur. Pt has not fallen in the past few days otherwise. The pt has not been able to walk or stand since the fall due to the pain. She uses oxygen at night at 2 L or under. Her breathing has not seemed more labored than normal recently per the . Her oxygen level has been 88- 92 on room air. Her blood pressure is normally 108-110. 88 was the lowest, 4 days ago. There have been no new medications since she left the hospital, and they have cut back her medicine since leaving (unspecified which medications). Nursing Notes Stated Complaint: GLF Chief Complaint: Multiple Trauma/Fall Nursing Notes Reviewed: Yes (Verious not reconciled, EMR indicates warfarin use) Allergies: Coded Allergies: codeine (Verified Adverse Reaction, Intermediate, Nausea,Vomiting, 08/17/16 ) Scheduled Carvedilol (Carvedilol) 12.5 Mg Tablet 6.25 MG PO BID Cyclosporine (Restasis) 1 Each Droperette 1 DROP BOTH_EYES BID Furosemide (Furosemide) 20 Mg Tab 40 MG PO QAM Ipratropium/Albuterol Sulfate (Iprat-Albut 0.5-3(2.5) mg/3 mL Inhalant Soln) 3 Ml Ampul.neb 3 ML IH TID Levothyroxine (Levothyroxine) 112 Mcg Tablet 112 MCG PO Q2DAY Multivitamin (Multivitamins) 1 Each Capsule 1 EACH PO DAILY Paroxetine (Paroxetine) 20 Mg Tablet 20 MG PO HS Spironolactone (Spironolactone) 25 Mg Tablet 12.5 MG PO DAILY Vit A/Vit C/Vit E/Zinc/Copper (Preservision Areds Tablet) 1 Each Tablet 1 EACH PO BID Warfarin Sodium (Warfarin Sodium) 5 Mg Tablet 5 MG PO WED, WED Warfarin Sodium (Warfarin Sodium) 5 Mg Tablet 2.5 MG PO ,We,Bernarda,Sat,Ralph Scheduled PRN Acetaminophen (Acetaminophen) 500 Mg Tablet 500 MG PO Q6H PRN PRN For Fever General Time Seen by MD: 15:05 Chief Complaint Fall Hx Obtained From: Patient, Spouse, Other family..., EMS Arrived By: Ambulance Onset Occurred: 16 - 30 minutes ago Symptom Duration: Since onset Caused by: Fall on ground Location: Hip right Shoulder right Quality: Painful Severity: Current: Moderate Severity: Maximum: Moderate Recent Healthcare: Recent doctor visit Similar Sx Previous: No Past Medical History Past Medical History Notes: Admit May 02 through 05/06/2016 for chronic respiratory failure, COPD Admitted July 18 through July 21, 2016for acute CHF Past Medical History Severe nonischemic cardiomyopathy Chronic atrial fibrillation on warfarin Severe systolic CHF, (EF of 10-15% on 07/20/2016 echocardiogram, severe global hypokinesis, partially flail tricuspid valve leaflet with severe tricuspid regurgitation) Arthritis 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 Alcohol Use: "Social" Drug Use: Denies drug use Other Social History: Ambulatory Status Independent Review of Systems Shoulder pain and hip pain. Denies head injury. Constitutional: Denies: Chills, Fever Respiratory: Denies: Non-productive cough, Shortness of breath Musculoskeletal: Reports: Extremity pain, Joint pain Neurologic: Reports: Dizziness, Lightheaded, Spinning sensation, Denies: Change LOC, Confusion, Numbness, Syncope, Weakness Complete sys rev & neg: except as marked. Cardiovascular: Denies: Chest pain, Dyspnea on exertion, Palpitations GI: Denies: Nausea Endocrine: Denies: Weight gain, Weight loss Physical Exam Initial Vital Signs Vital Signs (First) Date Time Temp Pulse Resp B/P Pulse Ox O2 Delivery O2 Flow Rate FiO2 09/25/16 14:47 36.6 70 19 123/69 84 Room Air 09/25/16 16:17 10 Initial VS: Reviewed, Vital signs abnormal (hypoxia) Head / Eyes: Atraumatic, Normocephalic, PERRL ENT: Mucous membranes moist, Conjunctiva normal, No scleral icterus Abdomen / GI: Soft, Non-tender Extremities: Vascular intact, Neuro intact Skin: Warm, Dry, No cyanosis Neurologic: Alert, Oriented, Nonfocal Psychiatric: Mood/affect normal, Behavior normal General/Constitutional: Awake, Alert Neck: Atraumatic, Full range of motion Respiratory / Chest: Atraumatic, Breath sounds = bilat, No respiratory distress Tachypneic - difficult to obtain if this is her baseline from the patient and family members Crackles throughout Cardiovascular: Heart rate NL, Heart sounds NL Paced rhythm Abdomen: Atraumatic, Soft, Non-tender Upper Extremity / MS: Non-tender, No deformity, Neurologic intact, Vascular intact Left Upper Arm: Positive: Deformity humerus distal, Deformity humerus mid, Deformity humerus prox, Ecchymosis present, Erythema present, Neuro deficit present, Open fracture present, Pulse brachial absent, Pulse brachial decreased , Pulses distal absent, Pulses distal decreased, Swelling present..., Tenderness present..., Warmth present Ecchymosis and abrasion about right elbow, but no bony tenderness. Lower Extremity / Pelvis / MS: No deformity, Neurologic intact, Vascular intact Trace edema in both legs with improvement compared to last visit. Cannot bear weight. Pain at the right hip with any movement of the right leg No shortening or external rotation Interpretation & Diagnostics Interpretation & Diagnostics: CT PELVIS W/o contrast: IMPRESSION: Acute right obturator ring fracture involving the superior and inferior obturator ring with mild to moderate comminution superiorly. There is no associated hip fracture or sacral fracture, or soft tissue hematoma. Dictated by: Gaurang Garrison M.D. on 09/25/2016 at 17:27 Lab Results Interpretation Result Diagram: 09/25/16 1531 09/25/16 1531 Test 09/25/16 15:31 09/25/16 16:10 09/25/16 16:25 White Blood Count 9.4th/mm3 (3.8-10.1) Red Blood Count 4.94mil/mm3 (3.90-5.20) Hemoglobin 15.9g/dL (12.0-15.6) Hematocrit 46.2% (35.0-46.0) Mean Corpuscular Volume 93.5fL (81-100) Mean Corpuscular Hemoglobin 32.2pg (27.0-35.0) Mean Corpuscular Hemoglobin Concent 34.4% (32.0-37.0) Red Cell Distribution Width 20.0% (12.3-15.4) Platelet Count 123bil/L (150-400) Neutrophils (%) (Auto) 70.7% (40-74) Lymphocytes (%) (Auto) 19.3% (14-46) Monocytes (%) (Auto) 7.2% (4-12) Eosinophils (%) (Auto) 1.6% (0-5) Basophils (%) (Auto) 0.5% (0-3) Prothrombin Time 31.3sec (8.1-12.5) Prothromb Time International Ratio 2.86ratio Sodium Level 135mEq/L (134-144) Potassium Level 4.7mEq/L (3.5-5.2) Chloride Level 94mEq/L (97-108) Carbon Dioxide Level 25mmol/L (18-29) Blood Urea Nitrogen 26mg/dL (8-27) Creatinine 1.01mg/dL (0.57-1.00) Estimat Glomerular Filtration Rate 74mL/min (>59) Glucose Level 118mg/dL (60-99) Calcium Level 9.4mg/dL (8.5-10.1) Total Bilirubin 1.7mg/dL (0.0-1.2) Aspartate Amino Transf (AST/SGOT) 37U/L (0-50) Alanine Aminotransferase (ALT/SGPT) 18U/L (0-32) Alkaline Phosphatase 117U/L (25-165) Troponin T 0.011ug/L (0.0-0.011) Pro-B-Type Natriuretic Peptide 13094md/mL (0-738) Total Protein 7.4g/dL (6.4-8.4) Albumin 3.7g/dL (3.4-5.0) Urine Color Yellow (YELLOW) Urine Appearance Clear (CLEAR,HAZY) Urine pH 7.0 (5.0-8.0) Urine Specific [place] 1.010 (1.003-1.035) Urine Protein Negativemg/dL (NEG,TRACE) Urine Glucose (UA) Negativemg/dL (NEGATIVE) Urine Ketones Negativemg/dL (NEGATIVE) Urine Occult Blood Negative (NEGATIVE) Urine Nitrite Negative (NEGATIVE) Urine Bilirubin Negative (NEGATIVE) Urine Urobilinogen Normalmg/dL (NORMAL) Urine Leukocyte Esterase Trace (NEGATIVE) Urine RBC 0-2/hpf (0-2) Urine WBC 6-10/hpf (0-5) Urine Epithelial Cells Few/hpf (NONE-MOD) Urine Crystals None seen (NONE SEEN) Urine Bacteria Many/hpf (NONE-FEW) Urine Hyaline Casts None/lpf (NONE) Urine Granular Casts None seen (NONE SEEN) Urine Waxy Casts None seen (NONE SEEN) Urine Red Blood Cell Casts None seen (NONE SEEN) Urine White Blood Cell Casts None seen (NONE SEEN) Urine Mucus None seen (None Seen) Urine Trichomonas None seen (NONE SEEN) Urine Yeast None (NONE SEEN) Urinalysis Comment None Urine Culture Reflexed Indicated Lactic Acid Level 2.1mmol/L (0.4-2.0) Lab Results Interpretation: CBC normal CMP normal INR therapeutic Urinalysis few white cells, few epithelial cells, nonspecific-no indication for antibiotics ECG Interpretation ECG Interpretation: Ventricularly paced rhythm rate 70 Time: 16:09 Interpreted by: ED physician Normal ECG Interpretation: No acute ischemic changes X-Ray Chest Interpretation Chest Xray Interpretation: IMPRESSION: 1. Chronic reticular interstitial opacities redemonstrated without acute consolidation. Dictated by: Gabe Zazueta M.D. on 09/25/2016 at 16:11 View: Portable, 1 view Interpretation / Wet Read by: Interpret - Radiologist X-Ray Interpretation Xray Interpretation: IMPRESSION: 1. No evidence of acute femoral fracture. 2. Possible fracture of the right superior pubic ramus. Recommend correlation clinically and further evaluation with CT if indicated. Dictated by: Gabe Zazueta M.D. on 09/25/2016 at 16:16 Study Performed: 2 view X-Ray Ordered: Femur right Interpretation / Wet Read by: Interpret - Radiologist Xray Interpretation: IMPRESSION: The proximal right femur has been fractured previously, with a short medullary gely and dynamic hip screw establishing normal anatomic alignment. There may be a nondisplaced medial right obturator ring fracture currently, but not definitively established by these plain films. Followup by CT or MR scanning would provide a more accurate assessment for whether superimposed new injury is present. Dictated by: Gaurang Garrison M.D. on 09/25/2016 at 16:07 Study Performed: 1 or 2 view X-Ray Ordered: Pelvis Interpretation / Wet Read by: Interpret - Radiologist Xray Interpretation: IMPRESSION: 1. No fracture or dislocation. Dictated by: Gabe Zazueta M.D. on 09/25/2016 at 16:15 Study Performed: Minimum 2 views X-Ray Ordered: Shoulder right Interpretation / Wet Read by: Interpret - Radiologist Re-Eval/Medical Decision Med Decision/Clinical Course This is a pleasant but frail 86-year-old female severe underlying lung disease, and a severe low EF tree of heart failure, who suffered a fall. It was not a clear mechanical fall she was dizzy and lightheaded, and her blood pressures in the 90s here-so I am suspicious that she may have been mildly hypotensive causing the dizziness and fall. She reports that is new in the past few days in terms of having this dizziness. She cannot describe it well. She denies chest pain, she denies change in her baseline shortness of breath although she is tachypneic here and mildly hypoxic-she does require O2 at home as well. She reports her weights up in stable awakening. She denies fevers, chills, cough. She denies any bleeding but is on warfarin. She reports she did not strike her head, complains of right shoulder and right hip pain with inability to ambulate the scene. She is status post a previous right femur fracture repair. On exam she is mildly uncomfortable with movement, however she declines pain medicines in multiple locations in the department. He would with minimal movement movement of the hip she has some pain. However there is no external rotation or shortening. The leg is neurovascularly intact. The shoulders without clinical evidence of abdoul fracture or dislocation but she reports some soreness in her shoulder decreased range of motion. She has ecchymosis over the elbow but has intact range of motion without clinical evidence of fracture or injury. Radiographs demonstrate no fracture of the shoulder, but are suggestive and obturator fracture of the pelvis. CT imaging was pursued given the age and confirms an obturator foramen fracture. The patient remains entirely frail, is not a candidate for discharge and cannot ambulate. She is being admitted. She is getting a routine inhaler and nebulizer medication here. She is therapeutic on her INR. Her blood pressures improved into the 100s without any any intervention. I am hesitant a lot of fluid issues recently admitted for an exacerbation of CHF. Her weights been stable. There is been a suspicion given she has had a dramatic reduction in her ejection fraction, she may be more sensitive to medications, she certainly can be frail given her multiple comorbidities and issues. This will need to be watched while she is in the hospital. Orthopedic consultation has been requested. Case discussed with the hospitalist. Source of Hx: Old records, EMS Re-Evaluation/Progress : Time of Eval: 18:05 Re-Evaluation/Progress Note: Pt rechecked. Informed pt of plan for admission. Pt understands and agrees with plan for admission. All questions addressed. Consultation #1: Referral / Consult Name: Jaret Boyd DO Consulted With: Orthopedic Requested Call at: 17:44 Call Returned at: 17:44 Gang Rider: Agrees with eval, Agrees with plan Note: Will consult Consultation #2: Referral / Consult Name: Lilia Romeo MD Consulted With: Hospitalist Call Returned at: 17:45 Gang Rider: Will see patient, Agrees with eval, Agrees with plan, Accepts admit Consultation #3: Referral / Consult Name: Julien Dunn MD Consulted With: Primary care physician Call Returned at: 15:47 Gang Rider: Agrees with eval, Agrees with plan Note: Contact PCP to obtain med list. Counseled Regarding: Diagnosis, Lab results, Need for admission Discharge & Departure Impression: Primary Impression: Fracture of right pelvis Encounter type: initial encounter Fracture type: closed Qualified Code: S32.9XXA - Fracture of unspecified parts of lumbosacral spine and pelvis, initial encounter for closed fracture Additional Impressions: Fall Encounter type: initial encounter Qualified Code: W19.XXXA - Unspecified fall, initial encounter Hypotension Hypotension type: unspecified hypotension type Qualified Code: I95.9 - Hypotension, unspecified Anticoagulated on warfarin Disposition: ADMITTED TO HOSPITAL Discharge Condition All VS Reviewed: Yes Condition: Stable Referrals: Julien Dunn MD (PCP) Gilles Attestation Portions of this note were transcribed by Bradley Rice and Jackie Catalan. I, Dr. Sanchez personally performed the history, physical exam and medical decision -making; I reviewed and confirmed the accuracy of the information in the transcribed note. Signed by: Bradley Rice and Gilles Jerez, 09/25/16 and 17:50. copies to: Julien Dunn MD, Matthew F MD Sep 25, 2016 15:06 Jackie Jennings Sep 25, 2016 15:21 BRADLEY RICE Sep 25, 2016 18:15
[2016-09-25 15:34] LABS: BASOPHILS % (AUTO) 0.5 % (0-3); EOSINOPHILS % (AUTO) 1.6 % (0-5); MONOCYTES % (AUTO) 7.2 % (4-12); Mean Corpuscular Hemoglobin 32.2 pg (27.0-35.0); Mean Corpuscular Volume 93.5 fL (81-100); NEUTROPHILS % (AUTO) 70.7 % (40-74); Platelet Count 123 bil/L (150-400)
[2016-09-25 15:38] LABS: INR 2.86 ratio
[2016-09-25 15:46] LABS: TROPONIN T 0.011 ug/L (0.0-0.011)
--- NOTE | 2016-09-25 16:15 | DRSVH ---
PROCEDURE: X-RAY PELVIS, ONE OR TWO VIEWS ([id number]) INDICATIONS: SOB TECHNIQUE: Single frontal view of the pelvis acquired. COMPARISON: [facility], CR, HIP COMP MIN 2VW (RT), 11/21/2009, 9:50. [facility], CR, HIP COMP MIN 2VW (RT), 01/01/2010, 9:16. [facility], CR, HIP C OMP MIN 2VW (RT), 01/23/2010, 15:03. [facility], CR, PELVIS W/LAT HIP (RT) (PNL), 10/17/19 10, 12:11. [facility], CR, XR FEMUR 2VW RT, 09/25/2016, 15:37. FINDINGS: Bones: No definite acute or subacute fractures or dislocations, but there is mild irregularity at th e superior obturator ring and inferior obturator ring medially, without posttraumatic plain film imag ing subsequently showing a definite fracture in this region of the pelvis.. No suspicious bony lesio ns. Prior right intertrochanteric hip fracture fixation by a short medullary gely and a dynamic hip s crew. Degenerative change appears to be present at the right hip, to a mild to moderate degree but n o acute trauma is suspected over the pelvis. Soft tissues: Visualized bowel gas pattern is normal. No suspicious soft tissue calcifications. IMPRESSION: The proximal right femur has been fractured previously, with a short medullary gely and dy namic hip screw establishing normal anatomic alignment. There may be a nondisplaced medial right obt urator ring fracture currently, but not definitively established by these plain films. Followup by C T or MR scanning would provide a more accurate assessment for whether superimposed new injury is pres ent. Dictated by: Gaurang Garrison M.D. on 09/25/2016 at 16:07 Approved by: Gaurang Garrison M.D. on 09/25/2016 at 16:14
--- NOTE | 2016-09-25 16:16 | DRSVH ---
PROCEDURE: X-RAY CHEST ONE VIEW, PORTABLE ([id number]) INDICATIONS: SOB TECHNIQUE: One view of the chest was acquired. COMPARISON: [facility], CR, XR CHEST 1VW (PORTABLE), 12/28/2014, 10:26. [facility], CR, XR CHEST 1VW (PORTABLE), 08/17/2016, 1:08. FINDINGS: Surgical changes and devices: Right chest wall dual-lead pacemaker is similar in appearance compared to the prior study. Lungs and pleura: No pleural effusions or pneumothorax. There are diffuse chronic reticular interst itial opacities redemonstrated. No acute consolidation within the visualized lungs. Mediastinum: Mediastinal contours appear unchanged. Heart size is enlarged. Bones and chest wall: No suspicious bony lesions. Overlying soft tissues appear unremarkable. IMPRESSION: 1. Chronic reticular interstitial opacities redemonstrated without acute consolidation. Dictated by: Gabe Zazueta M.D. on 09/25/2016 at 16:11 Approved by: Gabe Zazueta M.D. on 09/25/2016 at 16:15
[2016-09-25 16:17] VITALS: BP 105/66; PULSE 70; RESP 31; O2SAT 93
--- NOTE | 2016-09-25 16:17 | DRSVH ---
PROCEDURE: X-RAY RIGHT SHOULDER, MINIMUM TWO VIEWS ([id number]) INDICATIONS: Right shoulder pain status post fall. TECHNIQUE: 3 views of the shoulder were acquired. COMPARISON: None. FINDINGS: Bones: No fractures or dislocations. There is osteopenia. No suspicious bony lesions. Visualized ribs appear intact. Soft tissues: No suspicious soft tissue calcifications. There is a right chest wall pacemaker with partially visualized leads. IMPRESSION: 1. No fracture or dislocation. Dictated by: Gabe Zazueta M.D. on 09/25/2016 at 16:15 Approved by: Gabe Zazueta M.D. on 09/25/2016 at 16:16
--- NOTE | 2016-09-25 16:19 | DRSVH ---
PROCEDURE: X-RAY RIGHT FEMUR, TWO VIEWS ([id number]) INDICATIONS: pain TECHNIQUE: 4 views of the femur were acquired. COMPARISON: [facility], CR, PELVIS W/LAT HIP (RT) (PNL), 10/16/2009, 12:11. [facility], CR, XR PELVIS 1 OR 2VW, 09/25/2016, 15:37. FINDINGS: Bones: There is osteopenia. There are post surgical changes status post placement of an intramedulla ry gely with a telescoping screw through the right femoral neck and fixation screw in the proximal sha ft. No acute femoral fractures. There is irregularity of the superior pubic ramus suggesting a frac ture of indeterminate acuity. Soft tissues: No suspicious soft tissue calcifications or masses. IMPRESSION: 1. No evidence of acute femoral fracture. 2. Possible fracture of the right superior pubic ramus. Recommend correlation clinically and furthe r evaluation with CT if indicated. Dictated by: Gabe Zazueta M.D. on 09/25/2016 at 16:16 Approved by: Gabe Zazueta M.D. on 09/25/2016 at 16:18
[2016-09-25 16:39] LABS: APPEARANCE,URINE CLEAR (CLEAR,HAZY); COLOR,URINE YELLOW (YELLOW); OCCULT BLOOD,URINE NEGATIVE (NEGATIVE); UROBILINOGEN,URINE NORMAL (NORMAL)
--- NOTE | 2016-09-25 17:33 | DRSVH ---
PROCEDURE: CT PELVIS WITHOUT CONTRAST ([id number]) INDICATIONS: fall, ro fx TECHNIQUE: Noncontrast 3 mm axial sections acquired through the bony pelvis, with coronal and sagittal reformatt ing. COMPARISON: None. FINDINGS: Image quality: Excellent. Bones: Prior right dynamic hip screw and short medullary gely treatment for remote past intertrochant oniel right hip fracture. There is an acute appearing ring fracture on the right is comminuted to a m ild to moderate degree but only minimally displaced at the superior obturator ring medially, and to a lesser degree there is minimal displacement involving an acute fracture at the inferior right obtura tor ring. Soft tissues: No soft tissue hematoma found. IMPRESSION: Acute right obturator ring fracture involving the superior and inferior obturator ring w ith mild to moderate comminution superiorly. There is no associated hip fracture or sacral fracture, or soft tissue hematoma. Dictated by: Gaurang Garrison M.D. on 09/25/2016 at 17:27 Approved by: Gaurang Garrison M.D. on 09/25/2016 at 17:31
[2016-09-25] MEDS ORDERED: LEVO112T4 PO (17:40)
[2016-09-25] MEDS ORDERED: FUR20 PO (17:40)
[2016-09-25 17:46] VITALS: BP 114/83; PULSE 78; RESP 30; O2SAT 93
[2016-09-25] MEDS ORDERED: Ondansetron 2 mg/mL 2 mL Inj IVPUSH PRN (18:05)
[2016-09-25] MEDS ORDERED: Albuterol 2.5 mg/3 mL Inhalation Solution NEB PRN (18:10)
[2016-09-25 18:45] VITALS: BP 119/62; PULSE 74; RESP 23; O2SAT 96
[2016-09-25 20:16] VITALS: BP_SYST 111; PULSE 77; RESP 16; O2SAT 91
[2016-09-25] MEDS ORDERED: Albuterol-Ipratropium 3 mL Inhalation Solution NEB SCH (20:30)
[2016-09-25 20:39] VITALS: BP 102/57; PULSE 74; RESP 24; O2SAT 91
--- NOTE | 2016-09-25 20:52 | PCM.HPMED ---
Subjective Date of Service Sep 25, 2016 Primary Provider: Admitting Physician: Primary Care Physician: Julien Dunn MD Attending Physician: Chief Complaint: fall History of Present Illness: 86yo F w/ Chronic systolic heart failure with nonischemic cardiomyopathy, COPD, hypertension, Coronary artery disease, interstitial lung disease with chronic respiratory hypoxia respiratory failure and atrial fibrillation on warfarin presented after fall. pt was recently hospitalized in [id number], with acute respiratory failure, likely due to ADHF, noted significant reduced EF15-20%, underwent diuresis course, then d/c to SNF. Since pt was discharged,pt went through rehab course well. For the past 2-3weeks, pt was not even using walker on ambulation, as per family, pt didn't have any particular concerns of sickness recently. pt stated that she felt dizzy since yesterday. as pt was in acute respiratory distress, RR >30s, drowsy, no detailed hx was obtained. but pt stated that she felt dizzy on the way to sofa, not room spinning, had mild SOB as usual, had blurry vision but denied any other associate sx, ZUNIGA, palpitation, n, v. pt was doing ADLs, eating and drinking well, denied sx, no F/C observed. pt only using nocturnal O2 2liters, yesterday, noted 92% all day during the day even without O2. as per , pt was walking going to the kitchen, fell down, pt was found on the ground In ED VS [id number], 70, 19, 84% on RA, labs were unremarkable, chronic thrombocytopenia, elevated lactate, bilirubin, BNP decreased from last hospitalization. trauma series, pelvic CT showed Acute right obturator ring fracture During the interview, pt was mildly drowsy, easily fell asleep, using accessory muscle, in labored breathing, talking in short sentences. was on Oxymask 6- 10liters. asked for neb tx. ordered xray stat. Review of Systems: Pertinent positives as noted in history of present illness. All other systems were reviewed and are negative Allergies Coded Allergies: codeine (Verified Adverse Reaction, Intermediate, Nausea,Vomiting, 09/25/16) Home Medications Scheduled Carvedilol (Carvedilol) 12.5 Mg Tablet 6.25 MG PO DAILYWM TAKE 6.25 MG IN AM (W/ BREAKFAST) AND 12.5 MG IN PM (W/ DINNER) Cyclosporine (Restasis) 1 Each Droperette 1 DROP BOTH_EYES BID Furosemide (Furosemide) 20 Mg Tab 60 MG PO DAILY Ipratropium/Albuterol Sulfate (Iprat-Albut 0.5-3(2.5) mg/3 mL Inhalant Soln) 3 Ml Ampul.neb 3 ML IH TID Levothyroxine (Levothyroxine) 125 Mcg Tablet 125 MCG PO QAM Multivitamin (Multivitamins) 1 Each Capsule 1 EACH PO DAILY Paroxetine (Paroxetine) 20 Mg Tablet 20 MG PO HS Spironolactone (Spironolactone) 25 Mg Tablet 12.5 MG PO DAILY Vit A/Vit C/Vit E/Zinc/Copper (Preservision Areds Tablet) 1 Each Tablet 1 EACH PO BID Warfarin Sodium (Warfarin Sodium) 5 Mg Tablet 5 MG PO MONDAYS TAKE 5 MG MONDAYS AND 2.5 MG ALL OTHER DAYS Warfarin Sodium (Warfarin Sodium) 5 Mg Tablet 2.5 MG PO DAILY EXCEPT MONDAYS TAKE 5 MG MONDAYS AND 2.5 MG ALL OTHER DAYS Scheduled PRN Acetaminophen (Acetaminophen) 500 Mg Tablet 500 MG PO Q6H PRN PRN For Fever oxyCODONE-Acetaminophen 5-325 mg (oxyCODONE-Acetaminophen 5-325 mg) 1 Each Tablet 0.5-1 TAB PO Q6H PRN PRN For Pain PMH PMH Severe nonischemic cardiomyopathy. Chronic atrial fibrillation. severe systolic CHF, EF of 10-15%, severe dyssynchrony due to paced rhythm arthritis Cancer Hypertension Depression Thyroid disease Pulmonary fibrosis. Recently diagnosed by Dr Echeverria (B[facility] [place]) chronic respiratory failure due to COPD on home O2 Surgical History rib fractures 04/30/2016 right hip surgery Appendectomy Cataract surgery Tonsillectomy Pacemaker insertion Family History Father at age 51 unclear reason Mother at age 87 No history of interstitial lung disease or autoimmune disease Social History Hx Alcohol Use: No Hx Substance Use: No Hx Tobacco Use: Yes (20 year history 2 pack per day, quit 40 years ago) Smoking Status: Former Smoker Exam Vital Signs Vital Sign - Last Date Time Temp Pulse Resp B/P Pulse Ox O2 Delivery O2 Flow Rate FiO2 09/25/16 16:17 70 31 105/66 93 Simple Mask 10 09/25/16 14:47 36.6 Exam frail lady, distressed with tachypnea, using accessory muscle no JVD, MMM, no LAD irregular tachy, nl s1, s2 no mrg diffuse crackles throughout S,ND,NT,normoactive BS+ warm, trace edema, pulses 2/2 Lab and Diagnostics Result Diagram: 09/25/16 1531 09/25/16 1531 X-Rays, CTs and MRIs PROCEDURE: CT PELVIS WITHOUT CONTRAST ([id number]) INDICATIONS: fall, ro fx TECHNIQUE: Noncontrast 3 mm axial sections acquired through the bony pelvis, with coronal and sagittal reformatting. COMPARISON: None. FINDINGS: Image quality: Excellent. Bones: Prior right dynamic hip screw and short medullary gely treatment for remote past intertrochanteric right hip fracture. There is an acute appearing ring fracture on the right is comminuted to a mild to moderate degree but only minimally displaced at the superior obturator ring medially, and to a lesser degree there is minimal displacement involving an acute fracture at the inferior right obturator ring. Soft tissues: No soft tissue hematoma found. IMPRESSION: Acute right obturator ring fracture involving the superior and inferior obturator ring with mild to moderate comminution superiorly. There is no associated hip fracture or sacral fracture, or soft tissue hematoma. Dictated by: Gaurang Garrison M.D. on 09/25/2016 at 17:27 Approved by: Gaurang Garrison M.D. on 09/25/2016 at 17:31 PROCEDURE: X-RAY CHEST ONE VIEW, PORTABLE ([id number]) INDICATIONS: SOB TECHNIQUE: One view of the chest was acquired. COMPARISON: [facility], CR, XR CHEST 1VW (PORTABLE), 12/28/2014, 10: 26. [facility], CR, XR CHEST 1VW (PORTABLE), 08/17/2016, 1:08. FINDINGS: Surgical changes and devices: Right chest wall dual-lead pacemaker is similar in appearance compared to the prior study. Lungs and pleura: No pleural effusions or pneumothorax. There are diffuse chronic reticular interstitial opacities redemonstrated. No acute consolidation within the visualized lungs. Mediastinum: Mediastinal contours appear unchanged. Heart size is enlarged. Bones and chest wall: No suspicious bony lesions. Overlying soft tissues appear unremarkable. IMPRESSION: 1. Chronic reticular interstitial opacities redemonstrated without acute consolidation. Dictated by: Gabe Zazueta M.D. on 09/25/2016 at 16:11 Approved by: Gabe Zazueta M.D. on 09/25/2016 at 16:15 Assessment & Plan Acute, active ground level fall,resultant pelvic fx, in the setting of dizziness, no obvious prodroms, s/s of infection except UA+, likely multifactorial: orthostatic, metabolic with hypoxia, probable dehydration with diuresis, ventricular arrhythmia given severe cardiomyopathy -telemetry -PT to assess motor function -tylenol, tramadol prn for pain control -check orthostatic v/s once pain is more controlled, acute on chronic hypoxic respiratory failure, with COPD, ILD, CXR showed no acute findings, no fluid overload on exam/hx. FEV1/FVC was 92% in 05/2016, with DLCO 19%. Disease seems primarily restrictive and interstitial. no brochospasm. -O2 supplement as needed, target [id number], -duoneb q4h, alb tx q2h prn overnight, -resp PCR if pt becomes more symptomatic with cough, sputum, -will repeat CXR given worsening respiratory status in ED. -held diuretics,BB tonight, consider resuming tomorrow AM probable infectious status, UA+ -awaits UCX, hold off on abx for now Chronic, stable Chronic severe systolic CHF, TTE in Jul showed EF of 10-15%, severe dyssynchrony due to paced rhythm, global hypokinesis, pt seemed close to euvolemic, hold diuretic for now Chronic atrial fibrillation, EKG-wide complex, V-paced rhythm, INR2.86, given this level, fall will hold for now, resume BB when pt is more stable HTN, hold BP meds thyroid dz, continue LT4 chronic thrombocytopenia, stable, trends for now dispo:Patient will be admitted with inpatient status with expectation of inpatient therapy for more than 2 midnights Overall, this is recurrent admissions since Jun,, given far advanced cardiopulmonary dz, pt is more appropriate for telemetry floor, later noticed patient was admitted to [facility] diet:heart healthy dvt ppx:systemic AC DNR/DNI addendum> VS showed pt was febrile, O2 requirement still higher than baseline, will cover atypical PNA with azithromycin one dose, start Solu-medrol 125 followed by 40mg iv, send resp PCR STAT Time spent 65min Lilia Romeo MD Sep 25, 2016 17:40
[2016-09-25] MEDS ORDERED: Azithromycin Inj 500 MG in Dextrose 5% w/Vial Mate 250 ML IV ONE (21:00)
[2016-09-25] MEDS ORDERED: MethylprednisoLONE Sodium Succinate 62.5 mg/mL 2 mL Inj IVPUSH ONE (21:00)
[2016-09-25] MEDS ORDERED: PARoxetine 20 mg Tablet PO SCH (21:00)
[2016-09-26 00:29] VITALS: PULSE 74; RESP 30; O2SAT 97
[2016-09-26] MEDS ORDERED: MethylprednisoLONE Sodium Succinate 40 mg/mL Inj IVPUSH SCH (00:30)
[2016-09-26] MEDS ORDERED: Albuterol-Ipratropium 3 mL Inhalation Solution NEB SCH (00:30)
[2016-09-26] MEDS ORDERED: LORazepam 0.5 mg Tablet PO ONE (00:40)
--- NOTE | 2016-09-26 01:25 | PCM.PNMED ---
Subjective Date of Service Sep 26, 2016 Subjective Called by nurse shortly after midnight that patient was having respiratory distress and appears anxious. Nurse reports lungs were clear and no significant fluids were running Nurse tried to have patient take Ativan PO but quickly became unresponsive. Rapid response was called. Residents responded and assessed patient. Pulse prevent but weak and the code status was DNR/DNI Patient quickly stopped breathing and was pronounced Arturo Kang MD Sep 26, 2016 01:25
--- NOTE | 2016-09-26 02:31 | NUR ---
Admission Pt arrived to room 3019 alert and oriented x3, conversing in full sentences, and able to make needs known. Pt c/o pain to her right shoulder as well as right hip. Reports should pain as a constant 5/10 and hip pain as situational when she moves. Pt required 3PA from staff to transfer from ED bed to [facility] [place]. Pt tolerated transfer well. Pt was oriented to room, call light, bed and policies. Pt was asked if she needed pain medication and Pt declined, said she was comfortable laying in the new bed. Pts lungs were clear on arrival, per bench repair technician Pt is 100% Ventricular paced with underlying atrial flutter with rate of 78. Pt was at bed side and later went home. Pt was able to take pills whole in H20 with no difficulty. Pt later reported having to void and after trying to use the bed ortiz Pt said it was to uncomfortable and causing her pain so she was unable to void. was notified and gave order to place batista catheter. Batista catheter was placed by this RN using sterile technique with assistance of PILOT PLANT TECHNICIAN. Pt tolerated well. 300ml of clear ashely urine drained. Pts general condition at time of placing batista catheter (2300) was unchanged from time of arrival to floor.
--- NOTE | 2016-09-26 03:22 | NUR ---
Time of At 0030 Pt c/o SOB. Pt was sat up strait in bed, lung sounds were assessed and found to be clear with no changes from time of arrival to floor. Vitals were taken and SpO2 was 97% on 5L via oxy mask. Pt was anxious and unable to hold still long enough for BP to be taken. was notified and gave order for lorazepam. By time pharmacy had processed order it was 0040. When this RN bough medication to PT I noticed that Pt was sitting still and no longer fidgeting in the bed. Pt was responding verbally at this time. This Rn then gave Pt pill and handed her water which she grasped with her hand but did not bring to mouth. This RN took water and raised it to Pts mouth but she would not close her lips around straw. This Rn asked Pt if everything was alright and Pt did not respond. This Rn bent down and saw that Pt was blankly staring strait ahead. After verbally and physically trying to get Pts attention with no response a rapid response was called to Pts room. Vitals were again taken and No BP was able to be obtained. Pts SpO2 at this time was 83% Manual BP was attempted with no success. Pts was called and told of Pts condition and encouraged to come in. Pt was placed on non-rebreather mask at 15L/minute. At this time night resident team arrived as well as rest of rapid response team. At this point Pt began agonal breathing. Pulse was assessed and Pt was found to have a palpable femoral pulse and surveillance monitor was called and reported Pt as being 100% Ventricular paced at 70. 2 more attempts to assess Pts blood pressure were done by other staff. Pts agonal breathing ended and Pt stopped making any visible effort to self ventilate. Pulse was then re-assessed and none was found. Time of was 005. Pts came in and was given time to grieve. Pts daughter was called and she later came in as well. All personal effects were sent home with family. Family were told to call hospital and ask for it service continuity supervisor to inform us what home they decide on.
--- NOTE | 2016-09-26 14:17 | PCM.DC.MEX ---
Discharge Summary Date of Service Sep 26, 2016 Dates of Hospitalization Date of Hospital Admission Sep 25, 2016 at 17:58 Date of Expiration: Sep 26, 2016 Time of Expiration: 00:55 Providers: Admitting Physician: Lilia Romeo MD Primary Care Physician: Julien Dunn MD Attending Physician: Lilia Romeo MD Diagnosis at Time of ground level fall, pelvix fracture Respiratory arrest, probable PE or ventricular arrhythmias Procedures XRay, CTs & MRIs PROCEDURE: CT PELVIS WITHOUT CONTRAST ([id number]) INDICATIONS: fall, ro fx TECHNIQUE: Noncontrast 3 mm axial sections acquired through the bony pelvis, with coronal and sagittal reformatting. COMPARISON: None. FINDINGS: Image quality: Excellent. Bones: Prior right dynamic hip screw and short medullary gley treatment for remote past intertrochanteric right hip fracture. There is an acute appearing ring fracture on the right is comminuted to a mild to moderate degree but only minimally displaced at the superior obturator ring medially, and to a lesser degree there is minimal displacement involving an acute fracture at the inferior right obturator ring. Soft tissues: No soft tissue hematoma found. IMPRESSION: Acute right obturator ring fracture involving the superior and inferior obturator ring with mild to moderate comminution superiorly. There is no associated hip fracture or sacral fracture, or soft tissue hematoma. Dictated by: Gaurang Garrison M.D. on 09/25/2016 at 17:27 Approved by: Gaurang Garrison M.D. on 09/25/2016 at 17:31 PROCEDURE: X-RAY CHEST ONE VIEW, PORTABLE ([id number]) INDICATIONS: SOB TECHNIQUE: One view of the chest was acquired. COMPARISON: [facility], CR, XR CHEST 1VW (PORTABLE), 12/28/2014, 10: 26. [facility], CR, XR CHEST 1VW (PORTABLE), 08/17/2016, 1:08. FINDINGS: Surgical changes and devices: Right chest wall dual-lead pacemaker is similar in appearance compared to the prior study. Lungs and pleura: No pleural effusions or pneumothorax. There are diffuse chronic reticular interstitial opacities redemonstrated. No acute consolidation within the visualized lungs. Mediastinum: Mediastinal contours appear unchanged. Heart size is enlarged. Bones and chest wall: No suspicious bony lesions. Overlying soft tissues appear unremarkable. IMPRESSION: 1. Chronic reticular interstitial opacities redemonstrated without acute consolidation. Dictated by: Gabe Zazueta M.D. on 09/25/2016 at 16:11 Approved by: Gabe Zazueta M.D. on 09/25/2016 at 16:15 Brief History 86yo F w/ Chronic systolic heart failure with nonischemic cardiomyopathy, COPD, hypertension, Coronary artery disease, interstitial lung disease with chronic respiratory hypoxia respiratory failure and atrial fibrillation on warfarin presented after fall. pt was recently hospitalized in [id number], with acute respiratory failure, likely due to ADHF, noted significant reduced EF15-20%, underwent diuresis course, then d/c to SNF. Since pt was discharged,pt went through rehab course well. For the past 2-3weeks, pt was not even using walker on ambulation, as per family, pt didn't have any particular concerns of sickness recently. pt stated that she felt dizzy since yesterday. as pt was in acute respiratory distress, RR >30s, drowsy, no detailed hx was obtained. but pt stated that she felt dizzy on the way to sofa, not room spinning, had mild SOB as usual, had blurry vision but denied any other associate sx, ZUNIGA, palpitation, n, v. pt was doing ADLs, eating and drinking well, denied sx, no F/C observed. pt only using nocturnal O2 2liters, yesterday, noted 92% all day during the day even without O2. as per , pt was walking going to the kitchen, fell down, pt was found on the ground In ED VS [id number], 70, 19, 84% on RA, labs were unremarkable, chronic thrombocytopenia, elevated lactate, bilirubin, BNP decreased from last hospitalization. trauma series, pelvic CT showed Acute right obturator ring fracture During the interview, pt was mildly drowsy, easily fell asleep, using accessory muscle, in labored breathing, talking in short sentences. was on Oxymask 6- 10liters. asked for neb tx. ordered xray stat. Hospital Course Brief hospital course. Patient was first admitted with ground-level fall, resultant pelvic fracture on trauma workup. Patient was seen in emergency room, noted to have a significant respiratory distress, tachypneic over 30s, using accessory muscles, also lethargic, intermittently hypoxic to 80%. Patient was initially assigned to surgical floor. However, given severe respiratory distress, longer observation in emergency room was recommended, which was discussed with . Since patient was moved to [facility], pt noted to have mild fever, ordered for azithromycin , Solu-Medrol IV for possible exacerbation of underlying COPD, possible atypical pneumonia. However, around [facility], patient was found unresponsive and without resuscitation based on code status. Details of event documented per RN as below Time of At 0030 Pt c/o SOB. Pt was sat up strait in bed, lung sounds were assessed and found to be clear with no changes from time of arrival to floor. Vitals were taken and SpO2 was 97% on 5L via oxy mask. Pt was anxious and unable to hold still long enough for BP to be taken. Md was notified and gave order for lorazepam. By time pharmacy had processed order it was 0040. When this RN bough medication to PT I noticed that Pt was sitting still and no longer fidgeting in the bed. Pt was responding verbally at this time. This Rn then gave Pt pill and handed her water which she grasped with her hand but did not bring to mouth. This RN took water and raised it to Pts mouth but she would not close her lips around straw. This Rn asked Pt if everything was alright and Pt did not respond. This Rn bent down and saw that Pt was blankly staring strait ahead. After verbally and physically trying to get Pts attention with no response a rapid response was called to Pts room. Vitals were again taken and No BP was able to be obtained. Pts SpO2 at this time was 83% Manual BP was attempted with no success. Pts was called and told of Pts condition and encouraged to come in. Pt was placed on non-rebreather mask at 15L/minute. At this time night resident team arrived as well as rest of rapid response team. At this point Pt began agonal breathing. Pulse was assessed and Pt was found to have a palpable femoral pulse and cryptological technician was called and reported Pt as being 100% Ventricular paced at 70. 2 more attempts to assess Pts blood pressure were done by other staff. Pts agonal breathing ended and Pt stopped making any visible effort to self ventilate. Pulse was then re-assessed and none was found. Time of was 005. Pts came in and was given time to grieve. Pts daughter was called and she later came in as well. All personal effects were sent home with family. Family were told to call hospital and ask for properties supervisor to inform us what home they decide on. Exam Test 09/25/16 15:31 09/25/16 16:10 09/25/16 16:25 White Blood Count 9.4th/mm3 (3.8-10.1) Red Blood Count 4.94mil/mm3 (3.90-5.20) Hemoglobin 15.9g/dL (12.0-15.6) Hematocrit 46.2% (35.0-46.0) Mean Corpuscular Volume 93.5fL (81-100) Mean Corpuscular Hemoglobin 32.2pg (27.0-35.0) Mean Corpuscular Hemoglobin Concent 34.4% (32.0-37.0) Red Cell Distribution Width 20.0% (12.3-15.4) Platelet Count 123bil/L (150-400) Neutrophils (%) (Auto) 70.7% (40-74) Lymphocytes (%) (Auto) 19.3% (14-46) Monocytes (%) (Auto) 7.2% (4-12) Eosinophils (%) (Auto) 1.6% (0-5) Basophils (%) (Auto) 0.5% (0-3) Prothrombin Time 31.3sec (8.1-12.5) Prothromb Time International Ratio 2.86ratio Sodium Level 135mEq/L (134-144) Potassium Level 4.7mEq/L (3.5-5.2) Chloride Level 94mEq/L (97-108) Carbon Dioxide Level 25mmol/L (18-29) Blood Urea Nitrogen 26mg/dL (8-27) Creatinine 1.01mg/dL (0.57-1.00) Estimat Glomerular Filtration Rate 74mL/min (>59) Glucose Level 118mg/dL (60-99) Calcium Level 9.4mg/dL (8.5-10.1) Total Bilirubin 1.7mg/dL (0.0-1.2) Aspartate Amino Transf (AST/SGOT) 37U/L (0-50) Alanine Aminotransferase (ALT/SGPT) 18U/L (0-32) Alkaline Phosphatase 117U/L (25-165) Troponin T 0.011ug/L (0.0-0.011) Pro-B-Type Natriuretic Peptide 45281is/mL (0-738) Total Protein 7.4g/dL (6.4-8.4) Albumin 3.7g/dL (3.4-5.0) Procalcitonin 0.09ng/mL (0.00-0.08) Urine Color Yellow (YELLOW) Urine Appearance Clear (CLEAR,HAZY) Urine pH 7.0 (5.0-8.0) Urine Specific [place] 1.010 (1.003-1.035) Urine Protein Negativemg/dL (NEG,TRACE) Urine Glucose (UA) Negativemg/dL (NEGATIVE) Urine Ketones Negativemg/dL (NEGATIVE) Urine Occult Blood Negative (NEGATIVE) Urine Nitrite Negative (NEGATIVE) Urine Bilirubin Negative (NEGATIVE) Urine Urobilinogen Normalmg/dL (NORMAL) Urine Leukocyte Esterase Trace (NEGATIVE) Urine RBC 0-2/hpf (0-2) Urine WBC 6-10/hpf (0-5) Urine Epithelial Cells Few/hpf (NONE-MOD) Urine Crystals None seen (NONE SEEN) Urine Bacteria Many/hpf (NONE-FEW) Urine Hyaline Casts None/lpf (NONE) Urine Granular Casts None seen (NONE SEEN) Urine Waxy Casts None seen (NONE SEEN) Urine Red Blood Cell Casts None seen (NONE SEEN) Urine White Blood Cell Casts None seen (NONE SEEN) Urine Mucus None seen (None Seen) Urine Trichomonas None seen (NONE SEEN) Urine Yeast None (NONE SEEN) Urinalysis Comment None Urine Culture Reflexed Indicated Lactic Acid Level 2.1mmol/L (0.4-2.0) Time spent 65min Lilia Romeo MD Sep 26, 2016 14:17
== END 2016-09-26 00:25 | disposition expired | DRG 189 ==
LOC: EDUNIT# 14:37 → EDBD 14:37 → SED 14:37 → OSC 17:58 → MPC 19:38
PROVIDERS: ADMIT Internal Medicine; ATTEND Internal Medicine
DX: J96.21 Acute and chronic respiratory failure with hypoxia (principal); I26.99 Other pulmonary embolism without acute cor pulmonale; S32.810A Multiple fractures of pelvis with stable disruption of pelvic ring, initial encounter for closed fracture; I50.22 Chronic systolic (congestive) heart failure; I42.8 Other cardiomyopathies; Z79.01 Long term (current) use of anticoagulants; W18.30XA Fall on same level, unspecified, initial encounter; Y93.01 Activity, walking, marching and hiking; Y92.019 Unspecified place in single-family (private) house as the place of occurrence of the external cause; Y99.9 Unspecified external cause status; Z87.891 Personal history of nicotine dependence; Z95.0 Presence of cardiac pacemaker; I48.2 Chronic atrial fibrillation; Z66 Do not resuscitate; R09.2 Respiratory arrest; I49.8 Other specified cardiac arrhythmias